=== PATIENT | male | born 1945 | race African-American/Black ===

== ENCOUNTER → 2019-05-17 05:00 | Outpatient (REF) | payer SELFPAY ==
[2019-05-17 08:16] LABS: Anion Gap 8 (5-15); BUN 24 mg/dL (7-18); BUN/Creat Ratio 15.1 RATIO (10-20); Chloride 104 mmol/L (98-107); Creatinine, Serum 1.59 mg/dL (0.70-1.30); EST Glomerular Filtration Rate 45 mL/min (>60); Est Glom Filt Rate - Afr Amer 55 mL/min (>60); Glucose 154 mg/dL (74-106); Potassium 3.8 mmol/L (3.5-5.1); Sodium Level 138 mmol/L (136-145)
[2019-05-17 08:41] LABS: Hemoglobin A1c 11.2 % (4.2-6.3)
== END ==
LOC: OLS.BROOKB 05:00
PROVIDERS: Visit Provider Family Medicine
DX: E11.9 Type 2 diabetes mellitus without complications (principal)
CPT/HCPCS: 36415; 80048; 83036

== ENCOUNTER 2019-06-19 13:16 | Emergency (ER) | payer SELFPAY ==
[2019-06-19 13:17] VITALS: BP 136/70; PULSE 105; RESP 16; TEMP 36.6; O2SAT 96
--- NOTE | 2019-06-19 13:31 | RAD_ITS ---
STUDY: X-RAY - LEFT SHOULDER REASON FOR EXAM: Male, 74 years old. Pain status post fall. TECHNIQUE: 3 view(s) of the shoulder. COMPARISON: None. FINDINGS: There is moderate degenerative arthrosis of the glenohumeral articulation. There is hypertrophic osteoarthrosis of the acromioclavicular joint with inferior osseous spur formation. Normal acromion. There is demineralization of the humerus and visualized osseous structures. The soft tissue structures are unremarkable. Normal visualized pulmonary apex. RAD/Shoulder min 2 Views IMPRESSION: Degenerative changes as above with no evidence of acute fracture or dislocation. Electronically Signed: Shiraz Cazares DO at 13:59 EST , Service support ,
--- NOTE | 2019-06-19 14:08 | ED.VISSUMM ---
- ER Visit Summary Date of Service: 06/19/19 Chief Complaint: Left shoulder pain History of Present Illness: The patient is a 74 M history of dementia currently staying at a local nursing facility. Patient is a very poor informant. Reportedly from the custodial he fell today and now complaining of left shoulder pain. He does not remember falling. He said his left arm still hurting in the day. He is left-hand dominant. He denies any history of prior injury of prior shoulder surgery. Primarily hurts with movement. Patient denies any other injuries. He denies any fever or chills. Physical Examination: Older male no acute distress lying in bed comfortably watching football. HEENT exam unremarkable atraumatic. Neck nontender. Lungs are clear to auscultation. Heart regular rhythm no murmur. Chest wall nontender. Abdomen soft nontender. Pelvic girdle intact. Right upper both lower extremities are nontender with no deformity and normal range of motion. Normal motor strength. His left shoulder is not tender to palpation. There is no gross bony deformity. No swelling. No bleeding. From the left elbow forearm wrist and hand are nontender neurovascular intact with a palpable radial pulse. 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 Normal sensation. Full range of motion to his left elbow and left wrist and hand. He states he has pain when he tries to lift his left arm and has limited range of motion at the shoulder. Test Results: Left shoulder x-ray shows no acute abnormality. No fracture. No dislocation. Read both by myself and radiologist. 3 views. Emergency Department Course and Treatment: Exam no change. Mild passively range his arm he has discomfort and he will not hold up due to pain. His sister is now present in the room and I discussed with her the possibility this being a rotator cuff tear. It could also just be from bruising. I also spoke to the nurse Eileen at his extended care facility. He will be discharged home with outpatient follow-up. Treatment Plan: He may have simple bruising of his arm from the fall but we cannot rule out a rotator cuff injury. If this does not improve and he can't start using his left arm normally. Will need further evaluation. Disposition: Discharge Impression: Left shoulder pain of uncertain etiology This note was generated with [employer] dictation software. It may contain incorrect words, spelling, and punctuation that were not noted in review of the chart prior to signing
--- NOTE | 2019-06-19 15:08 | ED.DEP ---
ED Disposition - Plan for ED Patient: Disposition: Home or Assisted Living Instructions: Shoulder Sprain Referrals: Riddhi Cantrell MD [Primary Care Provider] - 1 Week if not improving Additional Instructions: Ice to the shoulder and Tylenol for pain. If this does not start improving and he cannot use his left shoulder as he could before this will need further evaluation to rule out a rotator cuff or other injury. The x-rays taken today of his shoulder are unremarkable. There is no fracture or dislocation.
== END 2019-06-19 15:56 | disposition home or self-care (01) ==
PROVIDERS: Emergency Provider Emergency Medicine; Family Provider Family Medicine; PCP Family Medicine
DX: M25.512 Pain in left shoulder (principal); W19.XXXA Unspecified fall, initial encounter; Y93.9 Activity, unspecified; Y92.129 Unspecified place in nursing home as the place of occurrence of the external cause; Y99.9 Unspecified external cause status; F03.90 Unspecified dementia, unspecified severity, without behavioral disturbance, psychotic disturbance, mood disturbance, and anxiety; E11.9 Type 2 diabetes mellitus without complications; I10 Essential (primary) hypertension
CPT/HCPCS: 73030; 99284

== ENCOUNTER → 2020-01-25 10:00 | Outpatient (REF) | payer SELFPAY ==
[2020-01-25 12:56] LABS: ALB/GLOB Ratio 0.8 RATIO (0.9-2.4); AST(SGOT) 17 U/L (15-37); Alanine Aminotransfer ALT/SGPT 22 U/L (16-61); Albumin, Serum 3.6 g/dL (3.2-5.0); Alkaline Phosphatase 78 U/L (45-117); Anion Gap 7 (5-15); BUN 40 mg/dL (7-18); BUN/Creat Ratio 20.5 RATIO (10-20); Calcium,Total 8.8 mg/dL (8.5-10.1); Chloride 103 mmol/L (98-107); Cholesterol 143 mg/dL (200); Creatinine, Serum 1.95 mg/dL (0.70-1.30); EST Glomerular Filtration Rate 36 mL/min (>60); Est Glom Filt Rate - Afr Amer 43 mL/min (>60); Globulin 4.3 g/dL (2.2-4.2); Glucose 97 mg/dL (74-106); Hematocrit 38.2 % (40-54); High Density Lipoprotein 37 mg/dL; Mean Corp Hgb Conc 31.4 g/dL (32-36); Mean Corpuscular Hgb 29.7 pg (27.0-32.0); Mean Corpuscular Volume 94.6 fL (80-94); Mean Platelet Vol. 9.5 fl (6.2-12.0); Platelet Count 297 K/mm3 (150-450); Potassium 4.3 mmol/L (3.5-5.1); Protein, Total 7.9 g/dL (6.4-8.2); RBC Distribution Width CV 12.7 % (11.6-14.6); Red Blood Count 4.04 M/mm3 (4.6-6.2); Sodium Level 140 mmol/L (136-145); Triglycerides 99 mg/dL; Very Low Density Lipoprotein 20 mg/dL (5-40); White Blood Count 7.3 K/mm3 (4.4-11.0)
[2020-01-25 14:40] LABS: Hemoglobin A1c 6.5 % (3.8-5.6)
== END ==
LOC: OLS.BROOKB 10:00
PROVIDERS: PCP Family Medicine; Visit Provider Family Medicine
DX: E11.9 Type 2 diabetes mellitus without complications (principal); I10 Essential (primary) hypertension
CPT/HCPCS: 80053; 80061; 83036; 85027

== ENCOUNTER → 2020-07-05 05:00 | Outpatient (REF) | payer SELFPAY ==
[2020-07-05 08:22] LABS: Hematocrit 34.4 % (40-54); Hemoglobin 10.8 g/dL (13.0-16.5); Mean Corp Hgb Conc 31.4 g/dL (32-36); Mean Corpuscular Hgb 28.9 pg (27.0-32.0); Mean Platelet Vol. 9.4 fl (6.2-12.0); Platelet Count 233 K/mm3 (150-450); RBC Distribution Width CV 12.6 % (11.6-14.6); RBC Distribution Width SD 42.9 fl (35.1-43.9); Red Blood Count 3.74 M/mm3 (4.6-6.2); White Blood Count 7.9 K/mm3 (4.4-11.0)
[2020-07-05 08:44] LABS: Anion Gap 6 (5-15); BUN 32 mg/dL (7-18); BUN/Creat Ratio 17.5 RATIO (10-20); Calcium,Total 8.3 mg/dL (8.5-10.1); Chloride 108 mmol/L (98-107); Creatinine, Serum 1.83 mg/dL (0.70-1.30); EST Glomerular Filtration Rate 38 mL/min (>60); Est Glom Filt Rate - Afr Amer 47 mL/min (>60); Glucose 110 mg/dL (74-106); Potassium 3.8 mmol/L (3.5-5.1); Sodium Level 141 mmol/L (136-145)
[2020-07-05 08:50] LABS: Hemoglobin A1c 6.7 % (3.8-5.6)
[2020-07-05 13:13] LABS: Color, Urine Yellow (Yellow); Glucose, Dipstick Normal (Normal); Ketone-Dipstick Negative (Negative); Leukocyte Esterase-Dipstick Negative /ul (Negative); Nitrite-Dipstick Negative (Negative); Occult Blood-Urine Negative /ul (Negative); Protein-Dipstick Negative (Negative); Urine Bilirubin Dipstick Negative (Negative); Urine Clarity Clear (Clear); Urine Urobilinogen Normal (Normal)
== END ==
LOC: OLS.BROOKB 05:00
PROVIDERS: PCP Family Medicine; Visit Provider Family Medicine
DX: F03.90 Unspecified dementia, unspecified severity, without behavioral disturbance, psychotic disturbance, mood disturbance, and anxiety (principal); E11.9 Type 2 diabetes mellitus without complications; I10 Essential (primary) hypertension; F91.8 Other conduct disorders; Z79.899 Other long term (current) drug therapy
CPT/HCPCS: 36415; 80048; 81002; 83036; 85027; 87086

== ENCOUNTER 2020-08-28 12:47 | Emergency (ER) | payer SELFPAY ==
[2020-08-28 12:50] VITALS: BP 135/67; PULSE 103; RESP 16; TEMP 37.1; O2SAT 95; BMI 31.1
--- NOTE | 2020-08-28 12:58 | EKG12_ITS ---
Test Reason : NECK PAIN Blood Pressure : / mmHG Vent. Rate : 103 BPM Atrial Rate : 103 BPM P-R Int : 188 ms QRS Dur : 086 ms QT Int : 316 ms P-R-T Axes : 033 -20 046 degrees QTc Int : 413 ms Sinus tachycardia Minimal voltage criteria for LVH, may be normal variant Borderline ECG Confirmed by POLLY MASON, BRITTANY ([id number]), photo editor ZOYA EASTMAN ([id number]) on 08/31/2020 9:27:57 AM Referred By: JERRY Confirmed By:BRITTANY MATIAS MD
--- NOTE | 2020-08-28 12:58 | RAD_ITS ---
STUDY: X-RAY CHEST REASON FOR EXAM: Male, 75 years old. RIGHT SHOULDER PAIN, RADIATES INTO RIGHT ARM TECHNIQUE: Single AP portable view of the chest. COMPARISON: None. FINDINGS: EKG electrodes are seen. There is elevation of the right hemidiaphragm. There is no demonstrated pleural abnormality. Normal size heart. Normal mediastinum and vibha. Normal visualized pulmonary arteries. There is atherosclerotic tortuosity of the aortic arch and descending thoracic aorta. There are diffuse degenerative changes of the visualized thoracic spine. There is degenerative osteoarthritis of the bilateral shoulders. There is no demonstrated abnormality of the visualized soft tissue structures of the upper abdomen. RAD/Chest 1 View (Portable) IMPRESSION: Elevation of the right hemidiaphragm. The lungs are clear. Electronically Signed: Justin Mills MD at 13:33 EST , Service support ,
--- NOTE | 2020-08-28 13:03 | ED.DCSUM_ITS ---
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 Nursing facility states that he was drowsy yesterday which is persisted today. Patient is complaining of right-sided neck and shoulder pain that began yesterday evening. Patient cannot provide an accurate history of present illness given his dementia. Has no complaints at this time. Past Medical History - Allergies and Home Meds Allergies/Adverse Reactions: Allergies shellfish derived Allergy (Verified 08/28/20 12:48) Unknown Primary Care Physician: Riddhi Cantrell MD [Primary Care Provider] - Prior records reviewed: Yes Past Medical History: - - Dementia Surgical History: noncontributory Lives: Assisted Smoking Status: Former smoker Alcohol: None Drugs: None Review of Systems General: Denies: Chills, Fever, Sweats Eyes: Denies: Visual changes - bilaterally, Diplopia ENT: Denies: Rhinorrhea, Sore throat Cardiovascular: Denies: Chest pain, Palpitations Respiratory: Denies: Dyspnea, Cough, Dyspnea on exertion Gastrointestinal: Denies: Abdominal pain, Nausea, Vomiting, Diarrhea, Melena, Hematochezia Genitourinary: Denies: Dysuria, Hematuria, Frequency Musculoskeletal: Reports: Neck pain. Denies: Back pain, Extremity Pain Skin: Denies: Rash, Wounds Neurological: Denies: Headache, Weakness, Numbness Physical Exam Vital Signs/Narrative: Vital Signs Temp Pulse Resp BP Pulse Ox 08/28/20 12:50 98.7 F 103 H 16 135/67 H 95 Inital Vital Signs reviewed: Yes General: Well nourished, Well developed, No Acute Distress Head: Normocephalic, Atraumatic Eyes: Perrl, EOMI ENT: Moist mucous membranes, No rhinorrhea Neck: Supple, - - TTP over the right middle and postior scalenes. Cardiovascular: Regular rate, Regular rhythm, No murmurs Respiratory: No distress, CTA bilaterally, Chest nontender Abdomen: Soft, Nontender, Nondistended, Normal bowel sounds Back: Nontender, Normal Inspection Extremities: Nontender, No edema Skin: Normal color, No rash Neurological: Alert, Oriented x3, Cranial nerves II-XII grossly intact, Normal Strength, Normal Sensation Psychological: Normal affect, Normal Mood Diagnostic/Tx/Re-eval Chest X-Ray - ED: 1 View, Read by ED Physician, Read by Radiologist, Normal Clinical Impression(s) from Imaging Studies Chest X-Ray 08/28/20 12:58 IMPRESSION: Elevation of the right hemidiaphragm. The lungs are clear. Electronically Signed: Justin Mills MD at 13:33 EST , Service support , Laboratory Data 08/28/20 08/28/20 08/28/20 13:10 13:10 13:40 WBC 11.1 H RBC 3.86 L Hgb 11.5 L Hct 35.2 L MCV 91.2 MCH 29.8 MCHC 32.7 RDW Std Deviation 42.0 RDW Coeff of Sanchez 12.6 Plt Count 286 MPV 9.1 Immature Gran % (Auto) 0.400 Neut % (Auto) 71.8 H Lymph % (Auto) 15.0 L [place] % (Auto) 10.8 H Eos % (Auto) 1.6 Baso % (Auto) 0.4 Absolute Neuts (auto) 8.0 H Absolute Lymphs (auto) 1.67 Nucleated RBC % 0 Sodium Cancelled 136 Potassium Cancelled 4.2 Chloride Cancelled 102 Carbon Dioxide Cancelled 27.0 Anion Gap Cancelled 7 BUN Cancelled 25 H Creatinine Cancelled 1.61 H Estim Creat Clear Calc Cancelled 44.11 Est GFR (MDRD) Af Amer Cancelled 54 L Est GFR (MDRD) Non-Af Cancelled 45 L BUN/Creatinine Ratio Cancelled 15.5 Glucose Cancelled 187 H Calcium Cancelled 8.6 Total Bilirubin Cancelled 0.50 AST Cancelled 16 ALT Cancelled 16 Alkaline Phosphatase Cancelled 82 Troponin I Cancelled < 0.015 Total Protein Cancelled 7.6 Albumin Cancelled 2.9 L Globulin Cancelled 4.7 H Albumin/Globulin Ratio Cancelled 0.6 L Urine Color Urine Clarity Urine pH Ur Specific Gray Urine Protein Urine Glucose (UA) Urine Ketones Urine Occult Blood Urine Nitrite Urine Bilirubin Urine Urobilinogen Ur Leukocyte Esterase Urine RBC Urine WBC Ur Squamous Epith Cells Urine Bacteria Urine Mucus 08/28/20 13:53 WBC RBC Hgb Hct MCV MCH MCHC RDW Std Deviation RDW Coeff of Sanchez Plt Count MPV Immature Gran % (Auto) Neut % (Auto) Lymph % (Auto) [place] % (Auto) Eos % (Auto) Baso % (Auto) Absolute Neuts (auto) Absolute Lymphs (auto) Nucleated RBC % Sodium Potassium Chloride Carbon Dioxide Anion Gap BUN Creatinine Estim Creat Clear Calc Est GFR (MDRD) Af Amer Est GFR (MDRD) Non-Af BUN/Creatinine Ratio Glucose Calcium Total Bilirubin AST ALT Alkaline Phosphatase Troponin I Total Protein Albumin Globulin Albumin/Globulin Ratio Urine Color Yellow Urine Clarity Sl. Cloudy Urine pH 6.0 Ur Specific Gray 1.015 Urine Protein 30 H Urine Glucose (UA) Normal Urine Ketones Negative Urine Occult Blood Negative Urine Nitrite Negative Urine Bilirubin Negative Urine Urobilinogen Normal Ur Leukocyte Esterase 25 H Urine RBC 0 SEEN Urine WBC 0-5 SEEN Ur Squamous Epith Cells 0 SEEN Urine Bacteria 0 SEEN Urine Mucus 0 SEEN - Rhythm Strip Rhythm Strip: Sinus Tach Rate: 103 Ectopy: None - EKG Initial EKG Interpretation: Sinus Tachycardia - Sinus tachycardia at 103 bpm. IA interval 188 ms. QTC of 413 ms. No evidence of ST elevation or depression at this time. - Medical Decision Making Patient appears well and nontoxic. EKG nonischemic. Troponin negative. Kidney function at baseline. Patient's pain is secondary to muscular tension. Was given Flexeril which completely resolves his pain. Patient is not drowsy and is completely alert in the emergency department. Vital signs initially somewhat tachycardic but improved following a small fluid bolus. Patient will be returned to the group home. Stable at time of discharge. Impression: 1. Neck pain 2. Drowsiness - resolved 3. CKD ED Disposition - Plan for ED Patient: Disposition: Senior Living Facility Instructions: ED Muscle Spasm Referrals: Riddhi Cantrell MD [Primary Care Provider] - 2 Days
[2020-08-28] MEDS: cycloBENZAPRine HCl 10 MG Tablet 5 MG PO (13:09)
--- NOTE | 2020-08-28 13:15 | NURSING ---
NO OLD EKGS
[2020-08-28 13:17] LABS: Absolute Lymphocyte Count 1.67 X10^3/uL (0.83-4.51); Basophil# 0.04 X10^3/uL; Basophil% 0.4 % (0-1); Eosinophil# 0.18 X10^3/uL; Eosinophils% 1.6 % (0-5); Hematocrit 35.2 % (40-54); Hemoglobin 11.5 g/dL (13.0-16.5); Lymphocyte # 1.67 X10^3/ul (4.0); Mean Corp Hgb Conc 32.7 g/dL (32-36); Mean Corpuscular Hgb 29.8 pg (27.0-32.0); Mean Corpuscular Volume 91.2 fL (80-94); Mean Platelet Vol. 9.1 fl (6.2-12.0); Monocyte% 10.8 % (0-10); NRBC Flagged by Analyzer 0 % (0-5); Neutrophil # 7.98 X10^3/uL (2.7-7.7); Neutrophil % 71.8 % (47-70); Platelet Count 286 K/mm3 (150-450); RBC Distribution Width CV 12.6 % (11.6-14.6); Red Blood Count 3.86 M/mm3 (4.6-6.2); White Blood Count 11.1 K/mm3 (4.4-11.0)
[2020-08-28 13:56] LABS: Bacteria 0 SEEN /hpf (None Seen); Mucous, Urine 0 SEEN /hpf (<or=2+); Red Blood Cells-Urine 0 SEEN /hpf (0-5); Squamous Epithelial Cells - UA 0 SEEN /hpf (0-5)
[2020-08-28 13:57] LABS: Color, Urine Yellow (Yellow); Glucose, Dipstick Normal (Normal); Ketone-Dipstick Negative (Negative); Leukocyte Esterase-Dipstick 25 /ul (Negative); Nitrite-Dipstick Negative (Negative); Occult Blood-Urine Negative /ul (Negative); Protein-Dipstick 30 mg/dl (Negative); Specific Gravity, Urine 1.015 (1.002-1.030); Urine Bilirubin Dipstick Negative (Negative); Urine Clarity Sl. Cloudy (Clear); Urine Urobilinogen Normal (Normal)
[2020-08-28 14:03] LABS: White Blood Cells 0-5 SEEN /hpf (0-5)
[2020-08-28 14:29] LABS: ALB/GLOB Ratio 0.6 RATIO (0.9-2.4); AST(SGOT) 16 U/L (15-37); Alanine Aminotransfer ALT/SGPT 16 U/L (16-61); Albumin, Serum 2.9 g/dL (3.2-5.0); Alkaline Phosphatase 82 U/L (45-117); Anion Gap 7 (5-15); BUN 25 mg/dL (7-18); BUN/Creat Ratio 15.5 RATIO (10-20); Calcium,Total 8.6 mg/dL (8.5-10.1); Chloride 102 mmol/L (98-107); Creatinine, Serum 1.61 mg/dL (0.70-1.30); EST Glomerular Filtration Rate 45 mL/min (>60); Est Glom Filt Rate - Afr Amer 54 mL/min (>60); Estimated Creatinine Clearance 44.11 ml/min; Globulin 4.7 g/dL (2.2-4.2); Glucose 187 mg/dL (74-106); Potassium 4.2 mmol/L (3.5-5.1); Protein, Total 7.6 g/dL (6.4-8.2); Sodium Level 136 mmol/L (136-145)
[2020-08-28 15:15] VITALS: BP 123/73; PULSE 96; RESP 17; O2SAT 96
--- NOTE | 2020-08-28 15:32 | NURSING ---
CALLED [facility], ETA IS 75 MIN
== END 2020-08-28 17:51 ==
PROVIDERS: Emergency Provider Emergency Medicine; PCP Family Medicine
DX: M54.2 Cervicalgia (principal); R40.0 Somnolence; M25.511 Pain in right shoulder; N18.9 Chronic kidney disease, unspecified; R00.0 Tachycardia, unspecified; F03.90 Unspecified dementia, unspecified severity, without behavioral disturbance, psychotic disturbance, mood disturbance, and anxiety; Z79.899 Other long term (current) drug therapy; Z87.891 Personal history of nicotine dependence
CPT/HCPCS: 36415; 71045; 80053; 81001; 84484; 85025; 93005; 99285; A4216

== ENCOUNTER 2020-08-29 17:48 | Emergency (ER) | payer SELFPAY ==
[2020-08-28 12:50] VITALS: BMI 31.1
[2020-08-29 17:48] VITALS: BP 119/65; PULSE 112; RESP 18; TEMP 36.4; O2SAT 96; BMI 30.4
--- NOTE | 2020-08-29 17:55 | RAD_ITS ---
STUDY: X-RAY - PELVIS REASON FOR EXAM: Male, 75 years old. PAIN IN BOTH HIPS. POSSIBLE FALL AT [facility]. FOUND LYING ON HIS SIDE TECHNIQUE: One view of the pelvis was obtained. COMPARISON: None. FINDINGS: There is a non-specific bowel gas pattern. Normal visualized soft tissue structures. Normal bilateral iliac wings, sacroiliac joints and visualized sacrum. Normal visualized bilateral superior and inferior pubic rami. Normal pubic symphysis. Normal ischial tuberosities. Normal visualized right femoral head. Normal right acetabulum. Normal right hip joint. Normal visualized left femoral head. Normal left acetabulum. Normal left hip joint. RAD/Pelvis 1 or 2 Views IMPRESSION: Normal x-ray examination of the pelvis. Electronically Signed: Jared Hill MD at 18:26 EST , Service support ,
--- NOTE | 2020-08-29 17:57 | ED.VIS.INJ ---
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 He reports hip pain which localized to the buttocks area and lateral left elbow pain. He is not a good informant since he has significant dementia. He denies head pain. He denies change in his vision. Denies trouble with his breathing. Denies chest pain. He denies upper back pain. He denies numbness or tingling in his upper or lower extremities. He was seen yesterday for fall. Prior similar symptoms: Yes Recent Illness/Hospitalization: Yes - Past Medical History (1) History of type 2 diabetes mellitus Status: Acute (2) History of hypertension Status: Acute (3) History of hypercholesterolemia Status: Acute (4) History of gastroesophageal reflux (GERD) Status: Acute (5) Dementia Status: Acute (6) Iron deficiency anemia Status: Acute Past Medical History - Allergies and Home Meds Allergies/Adverse Reactions: Allergies shellfish derived Allergy (Verified 08/29/20 17:54) Unknown Primary Care Physician: Riddhi Cantrell MD [Primary Care Provider] - Surgical History: noncontributory Lives: Residential Smoking Status: Former smoker Alcohol: None Drugs: None Review of Systems ROS: Unable to Obtain Musculoskeletal: Reports: Extremity Pain Physical Exam Vital Signs/Narrative: Vital Signs Temp Pulse Resp BP Pulse Ox 08/29/20 17:48 97.6 F L 112 H 18 119/65 96 Inital Vital Signs reviewed: Yes General: Well nourished, Well developed Head: Normocephalic, Atraumatic Eyes: Perrl, EOMI, - - Arcus senilis. Negative for: Pale conjunctiva, Scleral icterus ENT: TM's clear, No hemotympanum or drainage, No trauma. Negative for: Hemotympanum, Otorrhea, Nasal trauma, Nasal septal hematoma Neck: Nontender, Full ROM. Negative for: Spinal Tenderness Cardiovascular: Regular rhythm, No murmurs, Normal S1, Normal S2, Tachycardia Respiratory: No distress, CTA bilaterally, Chest nontender Abdomen: Soft, Nontender, Nondistended, Normal bowel sounds Rectal: Deferred Back: Nontender. Negative for: CVA Tenderness - Right, CVA Tenderness - Left, Spinal Tenderness, Paraspinal Tenderness Extremeties: Pain to palpation over the right and left ischial tuberosity. He also has pain ovation over the lateral epicondyle left elbow. Skin: Normal color, No rash, No Trauma. Negative for: Cyanosis, Diaphoresis, Jaundice Neurological: Alert, Cranial nerves II-XII grossly intact, Normal Strength, Normal Sensation. Negative for: Oriented x3 Psychological: Normal affect Diagnostic/Tx/Re-eval Chest X-Ray - ED: Read by ED Physician, - - 2 view x-ray of the pelvis was obtained and reveals minimal chronic changes with no evidence of fracture. Three-view x-ray of the elbow was obtained and interpreted as negative. There is no evidence of fracture, anterior posterior fat pad. There is mild degenerative changes noted. - Medical Decision Making Will obtain x-ray of the pelvis to rule out pelvic fracture and L x-ray of the elbow to rule out fracture of the elbow versus contusion. ED Disposition - Plan for ED Patient: Disposition: Home or Assisted Living Diagnosis: Fall with injury, Contusion of left elbow, initial encounter, Pelvic contusion Instructions: ED Contusion, Elbow, ED Coccyx or Sacrum Contusion Referrals: Riddhi Cantrell MD [Primary Care Provider] - As Needed
--- NOTE | 2020-08-29 18:10 | RAD_ITS ---
STUDY: X-RAY - LEFT ELBOW REASON FOR EXAM: Male, 75 years old. possible fall at [facility]. found lying on side. PAIN IN BOTH HIPS TECHNIQUE: 3 view(s) of the elbow. COMPARISON: None. FINDINGS: Normal visualized humerus, radius and ulna. Normal radiocapitellar and ulnotrochlear articulations. Tiny periarticular calcification adjacent to the medial humeral epicondyle likely representing calcific tendinitis. Small olecranon spur.. RAD/Elbow min 3 Views IMPRESSION: Mild degenerative change. No acute fracture or dislocation Electronically Signed: Jared Hill MD at 18:27 EST , Service support ,
--- NOTE | 2020-08-29 19:03 | NURSING ---
report called to ginny jennings nurse notified
[2020-08-29 19:14] VITALS: BP 154/74; PULSE 106; RESP 18; O2SAT 96
[2020-08-29 20:09] VITALS: BP 178/88; PULSE 105; RESP 18; O2SAT 95
[2020-08-29 20:18] VITALS: BP 156/92; PULSE 105; RESP 18; O2SAT 96
[2020-08-29 20:46] VITALS: BP 162/87; PULSE 106; RESP 18; O2SAT 95
== END 2020-08-29 20:46 | disposition skilled nursing facility (03) ==
PROVIDERS: Emergency Provider Emergency Medicine; PCP Family Medicine
DX: S50.02XA Contusion of left elbow, initial encounter (principal); S30.0XXA Contusion of lower back and pelvis, initial encounter; W19.XXXA Unspecified fall, initial encounter; Y93.9 Activity, unspecified; Y92.9 Unspecified place or not applicable; Y99.9 Unspecified external cause status; E11.9 Type 2 diabetes mellitus without complications; I10 Essential (primary) hypertension; E78.00 Pure hypercholesterolemia, unspecified; D50.9 Iron deficiency anemia, unspecified; K21.9 Gastro-esophageal reflux disease without esophagitis; F03.90 Unspecified dementia, unspecified severity, without behavioral disturbance, psychotic disturbance, mood disturbance, and anxiety; Z79.84 Long term (current) use of oral hypoglycemic drugs; Z79.899 Other long term (current) drug therapy; Z87.891 Personal history of nicotine dependence
CPT/HCPCS: 72170; 73080; 99284

== ENCOUNTER 2020-08-30 15:02 | Observation (INO) | payer SELFPAY ==
[2020-08-29 17:48] VITALS: BMI 30.4
[2020-08-30] VITALS (7 sets, daily range): BP systolic 104–139; BP diastolic 66–82; PULSE 90–94; RESP 14–18; TEMP 36.3–36.7; O2SAT 87–100; BMI 35.5; BMI 34.0
--- NOTE | 2020-08-30 15:20 | CT_ITS ---
STUDY: CT CERVICAL SPINE WITHOUT CONTRAST REASON FOR EXAM: Male, 75 years old. Decreased LOC, recent fall, dementia. Hx hypertension, diabetes. RADIATION DOSAGE (If Supplied By Facility): CTDIvol = ( 25.44 ) mGy, DLP = ( 519.40 ) mGycm TECHNIQUE: High resolution transaxial imaging was performed without contrast material. Sagittal and coronal images were reconstructed. Individualized dose optimization techniques were used for this CT. COMPARISON: None FINDINGS: Normal craniovertebral junction. Normal anterior atlantoaxial articulation. Normal odontoid process. Normal cervical lordosis. Normal vertebral bodies and posterior osseous elements. C2-3: Normal endplates. Normal disc height and small central disc protrusion.. Normal central canal and moderate right neuroforaminal stenosis secondary to bony hypertrophy. C3-4: Normal endplates. Normal disc height and small central disc/osteophyte protrusion. Mild narrowing of the central canal and impingement upon the ventral surface of the cord. Severe bilateral neuroforaminal stenosis secondary to bony hypertrophy C4-5: Narrowed disc space with endplate spurring and prominent right paracentral calcific disc protrusion narrowing the spinal canal and compressing the cord greater on the right. Severe bilateral neuroforaminal stenosis secondary to bony hypertrophy. C5-6: Narrowed disc space and endplate spurring. Mild narrowing the central canal. Severe bilateral neuroforaminal stenosis secondary to bony hypertrophy.. C6-7: Narrowed disc space and endplate spurring with small central disc protrusion. Mild narrowing of the central canal. Severe bilateral neuroforaminal stenosis secondary to bony hypertrophy. C7-T1: Normal endplates. Normal disc height and morphology. Normal central canal and intervertebral neuroforamina. Normal visualized soft tissue structures. CT/Spine Cervical without Contras IMPRESSION: No evidence for acute fracture or other significant bony pathology.. Spondylosis and multilevel spinal stenosis secondary to disc disease and bony hypertrophy most severe at C4-5, C5-6 and C6-7 Electronically Signed: Jared Hill MD at 16:19 EST , Service support ,
--- NOTE | 2020-08-30 15:20 | CT_ITS ---
STUDY: CT BRAIN WITHOUT CONTRAST REASON FOR EXAM: Male, 75 years old. Decreased LOC, recent fall, dementia. Hx hypertension, diabetes. RADIATION DOSAGE (If Supplied By Facility): CTDIvol = ( 44.99 ) mGy, DLP = ( 796.11 ) mGycm TECHNIQUE: Transaxial CT imaging of the brain was performed without administration of intravenous contrast material. Individualized dose optimization techniques were used for this CT. COMPARISON: No relevant priors. FINDINGS: Normal soft tissue structures. Normal calvarium. Calcification of cavernous carotids. Atrophy and moderate periventricular white matter ischemic changes.. Normal basal ganglia and thalami. Normal brainstem. Normal cerebellum. There is no intracranial hemorrhage. There are no findings of an acute ischemic infarction. Soft tissue density within the external auditory canal bilaterally likely representing cerumen Normal visualized paranasal sinuses. CT/Brain/Head without Contrast IMPRESSION: Atrophy and moderate periventricular white matter ischemic changes. No evidence for acute intracranial bleed. Electronically Signed: Jared Hill MD at 16:15 EST , Service support ,
[2020-08-30 15:40] LABS: Absolute Lymphocyte Count 2.12 X10^3/uL (0.83-4.51); Absolute Neutrophil Count 5.8 X10^3/uL (2.0-7.7); Basophil# 0.06 X10^3/uL; Basophil% 0.6 % (0-1); Eosinophil# 0.29 X10^3/uL; Eosinophils% 3.1 % (0-5); Hematocrit 35.3 % (40-54); Hemoglobin 11.5 g/dL (13.0-16.5); Lymphocyte # 2.12 X10^3/ul (4.0); Lymphocyte % 22.7 % (19-41); Mean Corp Hgb Conc 32.6 g/dL (32-36); Mean Corpuscular Hgb 29.5 pg (27.0-32.0); Mean Corpuscular Volume 90.5 fL (80-94); Mean Platelet Vol. 8.9 fl (6.2-12.0); Monocyte# 1.08 X10^3/uL; Monocyte% 11.6 % (0-10); NRBC Flagged by Analyzer 0 % (0-5); Neutrophil # 5.76 X10^3/uL (2.7-7.7); Neutrophil % 61.8 % (47-70); Platelet Count 314 K/mm3 (150-450); RBC Distribution Width CV 12.3 % (11.6-14.6); White Blood Count 9.3 K/mm3 (4.4-11.0)
[2020-08-30 16:13] LABS: ALB/GLOB Ratio 0.5 RATIO (0.9-2.4); AST(SGOT) 21 U/L (15-37); Alanine Aminotransfer ALT/SGPT 17 U/L (16-61); Albumin, Serum 2.8 g/dL (3.2-5.0); Alkaline Phosphatase 88 U/L (45-117); Anion Gap 6 (5-15); BUN 30 mg/dL (7-18); BUN/Creat Ratio 16.2 RATIO (10-20); Calcium,Total 9.3 mg/dL (8.5-10.1); Chloride 101 mmol/L (98-107); Creatinine, Serum 1.85 mg/dL (0.70-1.30); EST Glomerular Filtration Rate 38 mL/min (>60); Est Glom Filt Rate - Afr Amer 46 mL/min (>60); Estimated Creatinine Clearance 32.86 ml/min; Globulin 5.2 g/dL (2.2-4.2); Glucose 108 mg/dL (74-106); Potassium 4.6 mmol/L (3.5-5.1); Sodium Level 135 mmol/L (136-145)
[2020-08-30 16:18] LABS: Bacteria 0 SEEN /hpf (None Seen); Mucous, Urine 0 SEEN /hpf (<or=2+)
[2020-08-30 16:21] LABS: Color, Urine Yellow (Yellow); Glucose, Dipstick Normal (Normal); Ketone-Dipstick Negative (Negative); Leukocyte Esterase-Dipstick 25 /ul (Negative); Nitrite-Dipstick Negative (Negative); Occult Blood-Urine 10 /ul (Negative); Protein-Dipstick 15 mg/dl (Negative); Specific Gravity, Urine 1.015 (1.002-1.030); Urine Bilirubin Dipstick Negative (Negative); Urine Clarity Clear (Clear); Urine Urobilinogen Normal (Normal)
--- NOTE | 2020-08-30 16:21 | ED.DCSUM_ITS ---
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 Patient is unable to contribute useful history. His only complaint is neck pain. He is unsure when this started. He denies any other complaint on review of systems. Chart review shows that the patient that this is 1/3-day in a row the patient has been here. The initial visit was for confusion. Reviewing his medications show that he was started on gabapentin and Flexeril on August 29. Patient has not had a dose of Flexeril today. He has had gabapentin. Physical Examination: Vitals: Stable. Afebrile. General: Well-nourished and well-developed. Head: Normocephalic atraumatic. Neck: Supple, no lymphadenopathy. No JVD. Mild tenderness palpation over the mid cervical vertebrae and the paraspinous musculature on the right Cardiovascular: Regular rate and rhythm. No murmurs. Respiratory: No respiratory distress. Clear to auscultation bilaterally. Abdominal: Soft, nontender, nondistended, normal bowel sounds. No guarding, rebound, or peritoneal signs. Back: Nontender. Extremities: Nontender, no edema. Skin: Normal color, no rash. Neurologic: Alert and oriented ?1. Cranial nerves II through XII are intact. Normal strength and sensation. Slow to respond. Psych: Normal affect. Test Results: CBC shows an H&H 11.5 and 35.3. Chem-7 shows a sodium 135, glucose 108, BUN 30, creatinine 1.5. LFTs show an albumin of 2.8 globulin of 5.2. Covid is negative. Urinalysis shows leukocytes and blood. Clinical Impression(s) from Imaging Studies Brain CT 08/30/20 15:20 IMPRESSION: Atrophy and moderate periventricular white matter ischemic changes. No evidence for acute intracranial bleed. Electronically Signed: Jared Hill MD at 16:15 EST , Service support , Cervical Spine CT 08/30/20 15:20 IMPRESSION: No evidence for acute fracture or other significant bony pathology.. Spondylosis and multilevel spinal stenosis secondary to disc disease and bony hypertrophy most severe at C4-5, C5-6 and C6-7 Electronically Signed: Jared Hill MD at 16:19 EST , Service support , Emergency Department Course and Treatment: Patient is resting comfortably. Treatment Plan: I suspect that the patient's confusion and lethargy is due to the gabapentin. However, given his age he will be discussed with the hospitalist and admitted for further evaluation and treatment. Disposition: Admitted in stable condition. Impression: 1. Confusion. 2. Chronic renal insufficiency. This note was generated with [employer] dictation software. It may contain incorrect words, spelling, and punctuation that were not noted in review of the chart prior to signing ED Disposition - Plan for ED Patient: Referrals: Riddhi Cantrell MD [Primary Care Provider] -
[2020-08-30 16:51] LABS: Amorphous Sediment 1+ URATE; Hyaline Cast 0-5 SEEN /lpf (0-5); Red Blood Cells-Urine 0-5 SEEN /hpf (0-5); Squamous Epithelial Cells - UA 0-5 SEEN /hpf (0-5); White Blood Cells 0-5 SEEN /hpf (0-5)
--- NOTE | 2020-08-30 20:05 | HP.PCM_ITS ---
Problem List (1) Altered mental status Status: Acute (2) Dementia Status: Chronic (3) History of gastroesophageal reflux (GERD) Status: Chronic (4) History of hypercholesterolemia Status: Chronic (5) History of hypertension Status: Chronic (6) History of type 2 diabetes mellitus Status: Chronic (7) Iron deficiency anemia Status: Chronic History of Present Illness Date of Admission: 08/30/20 Chief Complaint: Altered mental status for few days The patient is a 75 year old M with multiple comorbidities as listed above was sent from [facility] for altered mental status for few days. Kristine ent has been coming to ER on 08/28 and 08/29 for neck pain and concern of drowsiness and apparent fall. Patient also complained of neck pain to the ER physician. Patient himself denies fall but questionable as patient has dementia and no family member to confirm it. Patient himself states he has intermittent confusion and disorientation and that is not new for him. Currently he is disoriented to place, person and time. Denies shortness of breath, chest pressure, fever or chills. No recent Covid symptoms including cough, sore throat or exposure. Denies burning with urination or new urinary symptoms. No abdominal pain. CT head and cervical spine CT does not show acute change. 12-lead EKG shows normal sinus rhythm at 89 bpm. [] Past Medical History Past Medical History (Chronic Problems): Chronic Problems History of type 2 diabetes mellitus (Chronic) History of hypertension (Chronic) History of hypercholesterolemia (Chronic) History of gastroesophageal reflux (GERD) (Chronic) Dementia (Chronic) Iron deficiency anemia (Chronic) Allergies shellfish derived Allergy (Verified 08/30/20 15:08) Unknown Home Medications: Ambulatory Orders Medication Instructions Recorded Atorvastatin Calcium [Lipitor] 20 mg PO QHS 08/28/20 Cimetidine 400 mg PO DAILY 08/28/20 Diltiazem HCl [Cartia Xt] 180 mg PO DAILY 08/28/20 Escitalopram Oxalate 10 mg PO DAILY 08/28/20 Ferrous Sulfate 325 mg PO DAILY 08/28/20 Lorazepam 0.5 mg PO BID PRN PRN 08/28/20 Memantine HCl 5 mg PO BID 08/28/20 Metformin HCl 1,000 mg PO BID 08/28/20 Nateglinide 120 mg PO TIDCM 08/28/20 Quetiapine Fumarate [Seroquel] 25 mg PO QHS 08/28/20 Valsartan/Hydrochlorothiazide 1 tab PO DAILY 08/28/20 [Valsartan-Hctz 320-25 mg Tab] Acetaminophen [Tylenol Arthritis] 1,300 mg PO BID 08/30/20 Gabapentin [Neurontin] 300 mg PO TID 08/30/20 cycloBENZAPRine HCl [Flexeril] 10 mg PO TID PRN PRN 08/30/20 Surgical History: noncontributory Smoking Status: Unknown if ever smoked - *Family History Paternal History Items: Unknown - Patient has dementia and does not remember well. Unobtainable Review of Systems Constitutional: Denies: Chills, Fever, Weight Change HEENT: Denies: Head Aches, Sinus Congestion, Sinus Drainage Cardiovascular: Denies: Chest Pain, Palpitations Respiratory: Denies: Cough, Shortness of breath at rest, Sputum production Gastrointestinal: Denies: Abdominal Pain, Nausea, Vomiting Genitourinary: Denies: Dysuria, Frequency Musculoskeletal: Denies: Joint Pain, Joint Tenderness Skin: Denies: Rash, Wounds Neurological: Reports: Balance problems. Denies: Focal weakness, Numbness, Tingling Psychiatric: Denies: Anxiety, Depression, Homicidal Ideations, Suicidal Ideations Hematologic/ Lymphatic: Denies: Easy Bruising, Easy Bleeding Unable to obtain accurate/complete ROS d/t: Detailed ROS unobtainable because of dementia VTE Information - Inpt Only VTE Present on Admission: No VTE Mechan Device Prophylaxis: None VTE Pharm Prophylaxis ordered?: Yes Patient Problems: Active and Suspected Problems Altered mental status (Acute) Objective: Physical exam General: Awake but disoriented to place, person, time and situation. HEENT: Atraumatic, PERRLA, EOMI, Normocephalic Oral: No Gingival or Mucosal Lesions/ Ulcerations Neck: Supple, No JVD, Negative Carotid Bruits Lungs: Air entry diminished in bilateral lung bases. No crepitation/rhonchi Cardiovascular: Regular rate, Regular Rhythm, Normal S1, Normal S2, No murmurs Abdomen: Bowel Sounds Present, Soft, Non Tender, Non-Distended : No renal angle tenderness. No suprapubic tenderness. Extremities: No edema, Capillary Refill Less than 3 Seconds Skin: No rashes, No breakdown Musculoskeletal: No Tenderness to Palpation of Joints or Extremities. ROM right knee and hip joints adequate. Neurological: Cranial nerves II-XII grossly intact, Deep Tendon Reflexes 2+/4. No focal neurological deficit. Muscle strength 5/5 at major joints. Psych/Mental Status: Normal Affect, Appropriate. - Physical Exam Vitals/I&O's: Vital Signs Temp Pulse Resp BP Pulse Ox 98.1 F 91 18 135/82 H 100 08/30/20 17:29 08/30/20 18:00 08/30/20 18:00 08/30/20 18:00 08/30/20 18:00 Oxygen Delivery Method Room Air Weight: 223 lb 8.78 oz Body Mass Index (BMI) 34.0 Microbiology Past 72 Hours 08/30/20 15:24 Mucosa - Nose SARS-CoV-2 Antigen (Rapid) - Final Laboratory Results 08/30/20 15:10: WBC 9.3, RBC 3.90 L, Hgb 11.5 L, Hct 35.3 L, MCV 90.5, MCH 29.5, MCHC 32.6, RDW Std Deviation 41.0, RDW Coeff of Sanchez 12.3, Plt Count 314, MPV 8.9, Immature Gran % (Auto) 0.200, Neut % (Auto) 61.8, Lymph % (Auto) 22.7, [place] % (Auto) 11.6 H, Eos % (Auto) 3.1, Baso % (Auto) 0.6, Absolute Neuts (auto) 5.8, Absolute Lymphs (auto) 2.12, Nucleated RBC % 0 08/30/20 15:10: Sodium 135 L, Potassium 4.6, Chloride 101, Carbon Dioxide 28.0, Anion Gap 6, BUN 30 H, Creatinine 1.85 H, Estim Creat Clear Calc 32.86, Est GFR (MDRD) Af Amer 46 L, Est GFR (MDRD) Non-Af 38 L, BUN/Creatinine Ratio 16.2, Glucose 108 H, Calcium 9.3, Total Bilirubin 0.40, AST 21, ALT 17, Alkaline Phosphatase 88, Total Protein 8.0, Albumin 2.8 L, Globulin 5.2 H, Albumin/Globulin Ratio 0.5 L 08/30/20 15:59: Urine Color Yellow, Urine Clarity Clear, Urine pH 5.0, Ur Specific [place] 1.015, Urine Protein 15 H, Urine Glucose (UA) Normal, Urine Ketones Negative, Urine Occult Blood 10 H, Urine Nitrite Negative, Urine Bilirubin Negative, Urine Urobilinogen Normal, Ur Leukocyte Esterase 25 H, Urine RBC 0-5 SEEN, Urine WBC 0-5 SEEN, Ur Squamous Epith Cells 0-5 SEEN, Amorphous Sediment 1+ URATE, Urine Bacteria 0 SEEN, Hyaline Casts 0-5 SEEN, Urine Mucus 0 SEEN Current Medications Sodium Chloride (0.9% Saline Lock 10 Ml Syringe) 10 - 40 ml IV UD PRN PRN Reason: SALINE FLUSH Assessment/Plan All Active Problems Altered mental status (Acute) The patient is a 75 year old M with multiple comorbidities as listed above was sent from [facility] for altered mental status for few days and recurrent ER visits for last 3 days. 1 altered mental status although unclear recent: As per patient he states he has confusion and disorientation intermittently and its not new thing. Probably it is related to dementia. No fever or chills. Denies dysuria. UA grossly normal. IV fluid normal saline at 100 mill per hour as patient is dehydrated. 2. CKD stage III: Patient has chronically elevated BUN and creatinine. His creatinine was 1.95 in January 2020, 1.June, 1.61 on August 28. Monitor intake and output, electrolytes and kidney function. 3. Diabetes mellitus type 2: Accu-Chek is in his coverage Humalog sliding scale. Blood sugar is random sometimes high sometimes low. Last A1c 6.7 in June 2020. 4. Other comorbidities include hypertension, chronic iron deficiency anemia GERD and dyslipidemia medication reconciliation done. VTE prophylaxis: Lovenox 30 mg subcu daily, adjusted to the creatinine clearance.. [] Clinical Impression(s) from Imaging Studies Brain CT 08/30/20 15:20 IMPRESSION: Atrophy and moderate periventricular white matter ischemic changes. No evidence for acute intracranial bleed. Electronically Signed: Jared Hill MD at 16:15 EST , Service support , Cervical Spine CT 08/30/20 15:20 IMPRESSION: No evidence for acute fracture or other significant bony pathology.. Spondylosis and multilevel spinal stenosis secondary to disc disease and bony hypertrophy most severe at C4-5, C5-6 and C6-7 OBSV E&M: [id number] Initial observation care L3
--- NOTE | 2020-08-30 20:25 | PCS.PANDOC ---
PANDEMIC DOCUMENTATION INITIATED: Date: 08/30/20 Time: 1999
[2020-08-30 21:00] LABS: Magnesium 1.6 mg/dL (1.6-2.6)
--- NOTE | 2020-08-30 21:40 | CPS ---
pt was sleeping when pox on room air was 87%-placed pt on 2 l/m sat increased to 96%
[2020-08-30] MEDS: 0.9% Normal Saline 1,000 ML 100 ML IV (22:03)
[2020-08-30] MEDS: 0.9% Saline Lock 10 ML Syringe IV (22:03)
[2020-08-30] MEDS: Atorvastatin Calcium 20 MG Tablet PO (22:04)
[2020-08-30] MEDS: Memantine Hydrochloride 5 MG Tablet PO (22:04)
[2020-08-30] MEDS: Senna/Docusate Sodium 1 Tablet 2 TABLET PO (22:04)
[2020-08-30] MEDS: Enoxaparin 30 MG/0.3 ML Syringe SC (22:17)
[2020-08-30 22:26] LABS: Bedside Glucose 139 mg/dL (70-110)
[2020-08-31 02:20] VITALS: BP 104/62; PULSE 93; RESP 16; TEMP 36.6; O2SAT 96
[2020-08-31 05:48] LABS: Absolute Lymphocyte Count 1.84 X10^3/uL (0.83-4.51); Absolute Neutrophil Count 4.6 X10^3/uL (2.0-7.7); Basophil# 0.06 X10^3/uL; Basophil% 0.8 % (0-1); Eosinophil# 0.25 X10^3/uL; Eosinophils% 3.3 % (0-5); Hematocrit 32.6 % (40-54); Hemoglobin 10.2 g/dL (13.0-16.5); Lymphocyte # 1.84 X10^3/ul (4.0); Lymphocyte % 24.2 % (19-41); Mean Corp Hgb Conc 31.3 g/dL (32-36); Mean Corpuscular Hgb 28.7 pg (27.0-32.0); Mean Corpuscular Volume 91.8 fL (80-94); Mean Platelet Vol. 8.4 fl (6.2-12.0); Monocyte# 0.86 X10^3/uL; Monocyte% 11.3 % (0-10); NRBC Flagged by Analyzer 0 % (0-5); Neutrophil # 4.59 X10^3/uL (2.7-7.7); Neutrophil % 60.3 % (47-70); Platelet Count 299 K/mm3 (150-450); RBC Distribution Width CV 12.4 % (11.6-14.6); RBC Distribution Width SD 42.5 fl (35.1-43.9); Red Blood Count 3.55 M/mm3 (4.6-6.2); White Blood Count 7.6 K/mm3 (4.4-11.0)
[2020-08-31 06:19] LABS: Anion Gap 7 (5-15); BUN 32 mg/dL (7-18); BUN/Creat Ratio 20.3 RATIO (10-20); Calcium,Total 8.7 mg/dL (8.5-10.1); Chloride 103 mmol/L (98-107); Creatinine, Serum 1.58 mg/dL (0.70-1.30); EST Glomerular Filtration Rate 46 mL/min (>60); Est Glom Filt Rate - Afr Amer 55 mL/min (>60); Estimated Creatinine Clearance 38.48 ml/min; Glucose 99 mg/dL (74-106); Potassium 3.6 mmol/L (3.5-5.1); Sodium Level 139 mmol/L (136-145); Thyroid Stim Hormone (TSH) 1.76 uIU/mL (0.358-3.74)
[2020-08-31 06:20] LABS: Bedside Glucose 94 mg/dL (70-110)
--- NOTE | 2020-08-31 08:10 | RAD_ITS ---
STUDY: X-RAY CHEST REASON FOR EXAM: Male, 75 years old. HYPOXIA TECHNIQUE: Single AP portable view of the chest. COMPARISON: None. FINDINGS: The lungs are clear and expanded. There is no demonstrated pleural abnormality. Normal size heart. Normal mediastinum and vibha. Normal visualized pulmonary arteries. Normal visualized aortic arch and descending thoracic aorta. Normal visualized thoracic spine. There is degenerative osteoarthritis of the bilateral shoulders. There is an old right clavicle fracture. There is no demonstrated abnormality of the visualized soft tissue structures of the upper abdomen. RAD/Chest PA and Lateral IMPRESSION: Normal x-ray examination of the chest. Electronically Signed: Elton Quarles MD at 11:41 EST Tel , Service support ,
[2020-08-31 08:32] VITALS: BP 109/62; PULSE 110; RESP 16; TEMP 37; O2SAT 94
[2020-08-31] MEDS: Escitalopram Oxalate 10 MG Tablet PO (09:13)
[2020-08-31] MEDS: Ferrous Sulfate 325 MG Tablet PO (09:13)
[2020-08-31] MEDS: Senna/Docusate Sodium 1 Tablet 2 TABLET PO (09:17)
[2020-08-31] MEDS: Enoxaparin 30 MG/0.3 ML Syringe SC (09:22)
[2020-08-31 09:32] VITALS: BP 116/66; PULSE 109; RESP 16; TEMP 36.6; O2SAT 93
--- NOTE | 2020-08-31 10:23 | CASEMGMT ---
Patient is from [facility]. ALESSIA attempted to call patient's son who is also his HCPOA, but he was not available and his voice mailbox was full. ALESSIA faxed updates to [facility] and also spoke with Tammi. She did not anticipate any reason patient could not return. ALESSIA told her we will keep them informed. Dalia TORRES
--- NOTE | 2020-08-31 10:28 | DCINST_ITS ---
- Discharge Diagnoses Current Active Problems: Current Active and Chronic Problems History of type 2 diabetes mellitus (Chronic) History of hypertension (Chronic) History of hypercholesterolemia (Chronic) History of gastroesophageal reflux (GERD) (Chronic) Dementia (Chronic) Iron deficiency anemia (Chronic) Altered mental status (Acute) You will use the following diet at home:: No restrictions Discharge Activity: Return to Normal Activity Call your doctor if you observe: Shortness of breath, Dizziness, Fainting spells, Chest pain Additional Instructions: Home Ativan and Flexeril as needed regimen discontinued due to intermittent drowsiness. May consider reducing gabapentin regimen if patient continues to have drowsiness. Allergies/Adverse Reactions: Allergies shellfish derived Allergy (Verified 08/30/20 15:08) Unknown Medications to take at Discharge Atorvastatin Calcium [Lipitor] 20 mg PO QHS 08/28/20 Cimetidine 400 mg PO DAILY 08/28/20 Diltiazem HCl [Cartia Xt] 180 mg PO DAILY 08/28/20 Escitalopram Oxalate 10 mg PO DAILY 08/28/20 Ferrous Sulfate 325 mg PO DAILY 08/28/20 Memantine HCl 5 mg PO BID 08/28/20 Metformin HCl 1,000 mg PO BID 08/28/20 Nateglinide 120 mg PO TIDCM 08/28/20 Quetiapine Fumarate [Seroquel] 25 mg PO QHS 08/28/20 Valsartan/Hydrochlorothiazide [Valsartan-Hctz 320-25 mg Tab] 1 tab PO DAILY 08/28/20 Acetaminophen [Tylenol Arthritis] 1,300 mg PO BID 08/30/20 Gabapentin [Neurontin] 300 mg PO TID 08/30/20 Primary Care Physician: Riddhi Cantrell MD [Primary Care Provider] - Please follow up with your Primary Care Physician in: 1 Week Test Results: Test results from this visit will be discussed in further detail at your follow- up appointment, if applicable. Proposed Discharge Date: 08/31/20
[2020-08-31] MEDS: Memantine Hydrochloride 5 MG Tablet PO (10:31)
--- NOTE | 2020-08-31 10:36 | PCM.DC.SUM ---
<HoseaColette PATIENT REGISTRATION CLERK - Last Filed: 08/31/20 10:45> Discharge Date and Diagnosis - Problem List Patient Problems: Active and Suspected Problems Altered mental status (Acute) Date of Admission: 08/30/20 Date of Discharge: 08/31/20 - Primary Discharge Diagnosis Acute Problems: Active Problems 1. Increased confusion, underlying dementia 2. Recent fall 3. Chronic kidney disease stage III 4. Type 2 diabetes mellitus 5. Hypertension 6. Hyperlipidemia 7. GERD 8. Iron deficiency anemia - Secondary Discharge Diagnosis Chronic Problems: Chronic Problems History of type 2 diabetes mellitus (Chronic) History of hypertension (Chronic) History of hypercholesterolemia (Chronic) History of gastroesophageal reflux (GERD) (Chronic) Dementia (Chronic) Iron deficiency anemia (Chronic) Hospital Course and Treatment Imaging Results: Diagnostic Data Brain CT 08/30/20 15:20 IMPRESSION: Atrophy and moderate periventricular white matter ischemic changes. No evidence for acute intracranial bleed. Electronically Signed: Jared Hill MD at 16:15 EST , Service support , Cervical Spine CT 08/30/20 15:20 IMPRESSION: No evidence for acute fracture or other significant bony pathology.. Spondylosis and multilevel spinal stenosis secondary to disc disease and bony hypertrophy most severe at C4-5, C5-6 and C6-7 Electronically Signed: Jared Hill MD at 16:19 EST , Service support , Operations: None Procedures: None Summary of Care Provided: The patient is a 75 year old M admitted 08/30/2020 due to altered mental status. 1. Increased confusion, underlying dementia-patient has noted confusion at baseline due to underlying dementia. Reports state patient intermittently difficult to arouse/drowsy. On assessment patient is alert, pleasantly confused. States it is 1990 however reports correct month. Home as needed Ativan and Flexeril discontinued as this may contribute to confusion and drowsiness. Brain CT negative for acute process. UA unremarkable. No evidence of infectious or metabolic etiology. Suspect worsening underlying dementia. Continue home memantine, Seroquel. Follow-up with PCP within 1 week. 2. Recent fall-evaluated in ED day prior to admission. Imaging without acute process. Cervical spine CT completed on admission without acute process. PT eval pending. Social work discussed with assisted living facility RN and at this time there is no concern with patient returning to assisted living. Will review PT eval prior to discharge. 3. Chronic kidney disease stage III-at baseline. 4. Type 2 diabetes mellitus-continue home oral regimen. 5. Hypertension-stable, continue valsartan/HCTZ, Cardizem. 6. Hyperlipidemia- continue statin. 7. GERD- continue home cimetidine regimen. 8. Iron deficiency anemia- stable. Patient seen and examined prior to discharge. Physical assessment as noted below. Patient is stable for discharge with follow up recommendations as noted above. This patient was seen by ALIS Saldivar under the supervision of Dr. Suarez. Patient Problems: Active and Suspected Problems Altered mental status (Acute) - Physical Exam Vitals/I&O's: Vital Signs Temp Pulse Resp BP Pulse Ox 97.8 F 109 H 16 116/66 93 08/31/20 09:32 08/31/20 09:32 08/31/20 09:32 08/31/20 09:32 08/31/20 09:32 Oxygen Flow Rate (L/min) 2 Oxygen Delivery Method Room Air Weight: 223 lb 8.78 oz Body Mass Index (BMI) 34.0 Intake and Output for Last 24 Hours 08/29/20 08/30/20 08/31/20 23:59 23:59 23:59 Intake Total 50 / 50 835 / 835 Output Total 400 / 400 Balance 50 / 50 435 / 435 General: Alert, Cooperative, No apparent distress, Confused HEENT: Atraumatic, PERRLA, EOMI, Normocephalic Neck: Supple, No JVD, Negative Carotid Bruits Lungs: Clear to auscultation, Normal air movement Cardiovascular: Regular rate, No murmurs Abdomen: Bowel Sounds Present, Soft, Non Tender, Non-Distended Extremities: No clubbing, No cyanosis, No edema, Capillary Refill Less than 3 Seconds Skin: No rashes, No breakdown Musculoskeletal: No Tenderness to Palpation of Joints or Extremities Neurological: Cranial nerves II-XII grossly intact, Neuro grossly intact Psych/Mental Status: Normal Affect, Appropriate Microbiology Past 72 Hours 08/30/20 15:24 Mucosa - Nose SARS-CoV-2 Antigen (Rapid) - Final Laboratory Results 08/30/20 15:10: WBC 9.3, RBC 3.90 L, Hgb 11.5 L, Hct 35.3 L, MCV 90.5, MCH 29.5, MCHC 32.6, RDW Std Deviation 41.0, RDW Coeff of Sanchez 12.3, Plt Count 314, MPV 8.9, Immature Gran % (Auto) 0.200, Neut % (Auto) 61.8, Lymph % (Auto) 22.7, [place] % (Auto) 11.6 H, Eos % (Auto) 3.1, Baso % (Auto) 0.6, Absolute Neuts (auto) 5.8, Absolute Lymphs (auto) 2.12, Nucleated RBC % 0 08/30/20 15:10: Sodium 135 L, Potassium 4.6, Chloride 101, Carbon Dioxide 28.0, Anion Gap 6, BUN 30 H, Creatinine 1.85 H, Estim Creat Clear Calc 32.86, Est GFR (MDRD) Af Amer 46 L, Est GFR (MDRD) Non-Af 38 L, BUN/Creatinine Ratio 16.2, Glucose 108 H, Calcium 9.3, Total Bilirubin 0.40, AST 21, ALT 17, Alkaline Phosphatase 88, Total Protein 8.0, Albumin 2.8 L, Globulin 5.2 H, Albumin/Globulin Ratio 0.5 L 08/30/20 15:10: Magnesium 1.6 08/30/20 15:59: Urine Color Yellow, Urine Clarity Clear, Urine pH 5.0, Ur Specific [place] 1.015, Urine Protein 15 H, Urine Glucose (UA) Normal, Urine Ketones Negative, Urine Occult Blood 10 H, Urine Nitrite Negative, Urine Bilirubin Negative, Urine Urobilinogen Normal, Ur Leukocyte Esterase 25 H, Urine RBC 0-5 SEEN, Urine WBC 0-5 SEEN, Ur Squamous Epith Cells 0-5 SEEN, Amorphous Sediment 1+ URATE, Urine Bacteria 0 SEEN, Hyaline Casts 0-5 SEEN, Urine Mucus 0 SEEN 08/30/20 22:02: POC Glucose 139 H 08/31/20 05:38: Sodium 139, Potassium 3.6, Chloride 103, Carbon Dioxide 29.0, Anion Gap 7, BUN 32 H, Creatinine 1.58 H, Estim Creat Clear Calc 38.48, Est GFR (MDRD) Af Amer 55 L, Est GFR (MDRD) Non-Af 46 L, BUN/Creatinine Ratio 20.3 H, Glucose 99, Calcium 8.7, TSH 1.76 08/31/20 05:38: WBC 7.6, RBC 3.55 L, Hgb 10.2 L, Hct 32.6 L, MCV 91.8, MCH 28.7, MCHC 31.3 L, RDW Std Deviation 42.5, RDW Coeff of Sanchez 12.4, Plt Count 299, MPV 8.4, Immature Gran % (Auto) 0.100, Neut % (Auto) 60.3, Lymph % (Auto) 24.2, [place] % (Auto) 11.3 H, Eos % (Auto) 3.3, Baso % (Auto) 0.8, Absolute Neuts (auto) 4.6, Absolute Lymphs (auto) 1.84, Nucleated RBC % 0 08/31/20 06:17: POC Glucose 94 Current Medications Acetaminophen (Acetaminophen 325 Mg Tablet) 650 mg PO Q6H PRN PRN PRN Reason: Pain Score 1-10/Temp > 100.7 F Al Hydroxide/Mg Hydroxide (Mag Hydrox/Al Hydrox/Simeth 30 Ml Udc) 30 ml PO Q6H PRN PRN PRN Reason: Gastric Burning Atorvastatin Calcium (Atorvastatin Calcium 20 Mg Tablet) 20 mg PO QHS [facility] Last Admin: 08/30/20 22:04 Dose: 20 mg Documented by: Bisacodyl (Bisacodyl 5 Mg Tablet) 5 mg PO DAILY PRN PRN PRN Reason: Constipation Dextrose (Dextrose 50%-Water 25 Gm/50 Ml Disp.Syrin) 0 gm IV X1 PRN; Protocol PRN Reason: Hypoglycemia Diltiazem HCl (Diltiazem Cd 180 Mg Capsule) 180 mg PO DAILY [facility] Last Admin: 08/31/20 09:13 Dose: Not Given Documented by: Enoxaparin Sodium (Enoxaparin 30 Mg/0.3 Ml Syringe) 30 mg SC DAILY [facility] Last Admin: 08/31/20 09:22 Dose: 30 mg Documented by: Escitalopram Oxalate (Escitalopram Oxalate 10 Mg Tablet) 10 mg PO DAILY [facility] Last Admin: 08/31/20 09:13 Dose: 10 mg Documented by: Ferrous Sulfate (Ferrous Sulfate 325 Mg Tablet) [facility] Last Admin: 08/31/20 09:13 Dose: 325 mg Documented by: Glucagon (Glucagon 1 Mg/Ml Syringe) 1 mg IM .X1 PRN PRN Reason: Hypoglycemia Insulin Human Lispro (Insulin Lispro 100 Unit/Ml Insuln.Pen) 0 unit SC [facility]; Protocol Last Admin: 08/31/20 06:21 Dose: Not Given Documented by: Memantine (Memantine Hydrochloride 5 Mg Tablet) 5 mg PO BID [facility] Last Admin: 08/31/20 10:31 Dose: 5 mg Documented by: Nitroglycerin (Nitroglycerin (Inpatient Use) 0.4 Mg Tab.Subl) 0.4 mg SUBLINGUAL Q5M PRN PRN Reason: CARDIAC/CHEST PAIN Prochlorperazine Edisylate (Prochlorperazine 10 Mg/2 Ml Vial) 5 mg IV Q4H PRN PRN PRN Reason: Breakthrough nausea/vomiting Quetiapine Fumarate (Quetiapine 25 Mg Tablet) 25 mg PO QMID [facility] Last Admin: 08/30/20 22:04 Dose: Not Given Documented by: Senna/Docusate Sodium (Senna/Docusate Sodium 1 Tablet) 2 tablet PO BID [facility] Last Admin: 08/31/20 09:17 Dose: 2 tablet Documented by: Sodium Chloride (0.9% Saline Lock 10 Ml Syringe) 10 - 40 ml IV UD PRN PRN Reason: SALINE FLUSH Last Admin: 08/30/20 22:03 Dose: 10 ml Documented by: Discharge Diet: No Restrictions Discharge Activity: Return to Normal Activity Call your doctor if you observe: Shortness of breath, Dizziness, Fainting spells, Chest pain Home Medications: Medications to take at Discharge Atorvastatin Calcium [Lipitor] 20 mg PO QHS 08/28/20 Cimetidine 400 mg PO DAILY 08/28/20 Diltiazem HCl [Cartia Xt] 180 mg PO DAILY 08/28/20 Escitalopram Oxalate 10 mg PO DAILY 08/28/20 Ferrous Sulfate 325 mg PO DAILY 08/28/20 Memantine HCl 5 mg PO BID 08/28/20 Metformin HCl 1,000 mg PO BID 08/28/20 Nateglinide 120 mg PO TIDCM 08/28/20 Quetiapine Fumarate [Seroquel] 25 mg PO QHS 08/28/20 Valsartan/Hydrochlorothiazide [Valsartan-Hctz 320-25 mg Tab] 1 tab PO DAILY 08/28/20 Acetaminophen [Tylenol Arthritis] 1,300 mg PO BID 08/30/20 Gabapentin [Neurontin] 300 mg PO TID 08/30/20 Primary Care Physician: Riddhi Cantrell MD [Primary Care Provider] - Please follow up with your Primary Care Physician in: 1 Week Disposition: Asstd Living/Non-Skill [facility] Minutes spent on discharge:: 35 Patient Condition:: Stable Medical Necessity - Tobacco Use Smoking Status: Unknown if ever smoked Meaningful Use Info Meaningful Use Diagnoses (Choose all that apply): None applicable <Maria VictoriarodolfoMisha - Last Filed: 08/31/20 13:00> Discharge Date and Diagnosis - Primary Discharge Diagnosis Acute Problems: Active Problems Altered mental status (Acute) - Secondary Discharge Diagnosis Chronic Problems: Chronic Problems History of type 2 diabetes mellitus (Chronic) History of hypertension (Chronic) History of hypercholesterolemia (Chronic) History of gastroesophageal reflux (GERD) (Chronic) Dementia (Chronic) Iron deficiency anemia (Chronic) Hospital Course and Treatment Imaging Results: 08/31/20 08:10 CXR [Chest PA and Lateral] [RAD] Urgent Summary of Care Provided: TThis patient was seen in conjunction with ALIS Saldivar . I have independently interviewed and examined the patient and reviewed pertinent historical, laboratory, and other data. Please refer to ALIS Saldivar note for details of this patient's presentation, findings, and recommendations. I have reviewed ALIS Saldivar note and concur with documented findings. In brief, patient is a 75-year-old gentleman with underlying history of dementia admitted with increasing confusion. Patient was found to have worsening kidney function admitted to regular nursing floor managed with fluids. Kidney function did improve. Patient returned back to his baseline discharge back to his assisted living facility - Physical Exam Vitals/I&O's: Vital Signs Temp Pulse Resp BP Pulse Ox 99 F 104 H 16 112/66 98 08/31/20 12:05 08/31/20 12:05 08/31/20 12:05 08/31/20 12:05 08/31/20 12:05 Oxygen Flow Rate (L/min) 2 Oxygen Delivery Method Room Air Weight: 101.4 kg Body Mass Index (BMI) 34.0 Intake and Output for Last 24 Hours 08/29/20 08/30/20 08/31/20 23:59 23:59 23:59 Intake Total 50 50 835 / 835 Output Total 400 / 400 Balance 50 / 50 435 / 435 Microbiology Past 72 Hours 08/30/20 15:24 Mucosa - Nose SARS-CoV-2 Antigen (Rapid) - Final Laboratory Results 08/30/20 15:10: WBC 9.3, RBC 3.90 L, Hgb 11.5 L, Hct 35.3 L, MCV 90.5, MCH 29.5, MCHC 32.6, RDW Std Deviation 41.0, RDW Coeff of Sanchez 12.3, Plt Count 314, MPV 8.9, Immature Gran % (Auto) 0.200, Neut % (Auto) 61.8, Lymph % (Auto) 22.7, [place] % (Auto) 11.6 H, Eos % (Auto) 3.1, Baso % (Auto) 0.6, Absolute Neuts (auto) 5.8, Absolute Lymphs (auto) 2.12, Nucleated RBC % 0 08/30/20 15:10: Sodium 135 L, Potassium 4.6, Chloride 101, Carbon Dioxide 28.0, Anion Gap 6, BUN 30 H, Creatinine 1.85 H, Estim Creat Clear Calc 32.86, Est GFR (MDRD) Af Amer 46 L, Est GFR (MDRD) Non-Af 38 L, BUN/Creatinine Ratio 16.2, Glucose 108 H, Calcium 9.3, Total Bilirubin 0.40, AST 21, ALT 17, Alkaline Phosphatase 88, Total Protein 8.0, Albumin 2.8 L, Globulin 5.2 H, Albumin/Globulin Ratio 0.5 L 08/30/20 15:10: Magnesium 1.6 08/30/20 15:59: Urine Color Yellow, Urine Clarity Clear, Urine pH 5.0, Ur Specific [place] 1.015, Urine Protein 15 H, Urine Glucose (UA) Normal, Urine Ketones Negative, Urine Occult Blood 10 H, Urine Nitrite Negative, Urine Bilirubin Negative, Urine Urobilinogen Normal, Ur Leukocyte Esterase 25 H, Urine RBC 0-5 SEEN, Urine WBC 0-5 SEEN, Ur Squamous Epith Cells 0-5 SEEN, Amorphous Sediment 1+ URATE, Urine Bacteria 0 SEEN, Hyaline Casts 0-5 SEEN, Urine Mucus 0 SEEN 08/30/20 22:02: POC Glucose 139 H 08/31/20 05:38: Sodium 139, Potassium 3.6, Chloride 103, Carbon Dioxide 29.0, Anion Gap 7, BUN 32 H, Creatinine 1.58 H, Estim Creat Clear Calc 38.48, Est GFR (MDRD) Af Amer 55 L, Est GFR (MDRD) Non-Af 46 L, BUN/Creatinine Ratio 20.3 H, Glucose 99, Calcium 8.7, TSH 1.76 08/31/20 05:38: WBC 7.6, RBC 3.55 L, Hgb 10.2 L, Hct 32.6 L, MCV 91.8, MCH 28.7, MCHC 31.3 L, RDW Std Deviation 42.5, RDW Coeff of Sanchez 12.4, Plt Count 299, MPV 8.4, Immature Gran % (Auto) 0.100, Neut % (Auto) 60.3, Lymph % (Auto) 24.2, [place] % (Auto) 11.3 H, Eos % (Auto) 3.3, Baso % (Auto) 0.8, Absolute Neuts (auto) 4.6, Absolute Lymphs (auto) 1.84, Nucleated RBC % 0 08/31/20 06:17: POC Glucose 94 08/31/20 11:06: POC Glucose 120 H Current Medications Acetaminophen (Acetaminophen 325 Mg Tablet) 650 mg PO Q6H PRN PRN PRN Reason: Pain Score 1-10/Temp > 100.7 F Al Hydroxide/Mg Hydroxide (Mag Hydrox/Al Hydrox/Simeth 30 Ml Udc) 30 ml PO Q6H PRN PRN PRN Reason: Gastric Burning Atorvastatin Calcium (Atorvastatin Calcium 20 Mg Tablet) 20 mg PO QHS [facility] Last Admin: 08/30/20 22:04 Dose: 20 mg Documented by: Bisacodyl (Bisacodyl 5 Mg Tablet) 5 mg PO DAILY PRN PRN PRN Reason: Constipation Dextrose (Dextrose 50%-Water 25 Gm/50 Ml Disp.Syrin) 0 gm IV X1 PRN; Protocol PRN Reason: Hypoglycemia Diltiazem HCl (Diltiazem Cd 180 Mg Capsule) 180 mg PO DAILY [facility] Last Admin: 08/31/20 09:13 Dose: Not Given Documented by: Enoxaparin Sodium (Enoxaparin 30 Mg/0.3 Ml Syringe) 30 mg SC DAILY [facility] Last Admin: 08/31/20 09:22 Dose: 30 mg Documented by: Escitalopram Oxalate (Escitalopram Oxalate 10 Mg Tablet) 10 mg PO DAILY [facility] Last Admin: 08/31/20 09:13 Dose: 10 mg Documented by: Ferrous Sulfate (Ferrous Sulfate 325 Mg Tablet) [facility] Last Admin: 08/31/20 09:13 Dose: 325 mg Documented by: Glucagon (Glucagon 1 Mg/Ml Syringe) 1 mg IM .X1 PRN PRN Reason: Hypoglycemia Insulin Human Lispro (Insulin Lispro 100 Unit/Ml Insuln.Pen) 0 unit SC [facility]; Protocol Last Admin: 08/31/20 11:07 Dose: Not Given Documented by: Memantine (Memantine Hydrochloride 5 Mg Tablet) 5 mg PO BID [facility] Last Admin: 08/31/20 10:31 Dose: 5 mg Documented by: Nitroglycerin (Nitroglycerin (Inpatient Use) 0.4 Mg Tab.Subl) 0.4 mg SUBLINGUAL Q5M PRN PRN Reason: CARDIAC/CHEST PAIN Prochlorperazine Edisylate (Prochlorperazine 10 Mg/2 Ml Vial) 5 mg IV Q4H PRN PRN PRN Reason: Breakthrough nausea/vomiting Quetiapine Fumarate (Quetiapine 25 Mg Tablet) 25 mg PO QHS [facility] Last Admin: 08/30/20 22:04 Dose: Not Given Documented by: Senna/Docusate Sodium (Senna/Docusate Sodium 1 Tablet) 2 tablet PO BID [facility] Last Admin: 08/31/20 09:17 Dose: 2 tablet Documented by: Sodium Chloride (0.9% Saline Lock 10 Ml Syringe) 10 - 40 ml IV UD PRN PRN Reason: SALINE FLUSH Last Admin: 08/30/20 22:03 Dose: 10 ml Documented by: OBSV E&M: [id number] Observation care discharge
[2020-08-31 11:16] LABS: Bedside Glucose 120 mg/dL (70-110)
[2020-08-31 12:05] VITALS: BP 112/66; PULSE 104; RESP 16; TEMP 37.2; O2SAT 98
--- NOTE | 2020-08-31 13:12 | PHA.DC.MR ---
Pharmacy Service has performed discharge medication reconciliation for this patient upon transfer back to [facility]. Home Medications Atorvastatin Calcium [Lipitor] 20 mg PO QHS 08/28/20 Cimetidine 400 mg PO DAILY 08/28/20 Diltiazem HCl [Cartia Xt] 180 mg PO DAILY 08/28/20 Escitalopram Oxalate 10 mg PO DAILY 08/28/20 Ferrous Sulfate 325 mg PO DAILY 08/28/20 Memantine HCl 5 mg PO BID 08/28/20 Metformin HCl 1,000 mg PO BID 08/28/20 Nateglinide 120 mg PO TIDCM 08/28/20 Quetiapine Fumarate [Seroquel] 25 mg PO QHS 08/28/20 Valsartan/Hydrochlorothiazide [Valsartan-Hctz 320-25 mg Tab] 1 tab PO DAILY 08/28/20 Acetaminophen [Tylenol Arthritis] 1,300 mg PO BID 08/30/20 Gabapentin [Neurontin] 300 mg PO TID 08/30/20 The patient's discharge medication list was reviewed for discrepancies and discrepancies were resolved.
--- NOTE | 2020-08-31 14:10 | CASEMGMT ---
Social Work Note ALESSIA attempted to call pt's son Henri again (POA) to confirm discharge plans, no answer, voicemail full and unable to leave message. ALESSIA discussed case with Melissa ALCANTARA, Next field contact technician for pt is pt's niece Sue. ALESSIA placed a call to Sue's number and Andreina, pt's sister answered. Andreina states she and Sue live together. SW asked to speak with Sue. Sue and Andreina state that they were never notified pt was admitted last night to [facility]. Both Andreina and Sue confirm plan is for pt to return to [facility]. ALESSIA updated Sue that pt will be discharged back to [facility] today. ALESSIA informed Sue that pt's son has been contacted multiple times with no answer and voicemail is full so not able to leave message. Sue states pt's son Henri doesn't answer phone calls and she will text him/update him. ALESSIA updated Andreina on transportation time. ALESSIA spoke with PT/OT, pt can return to [facility]. ALESSIA spoke with RN, due to pt's confusion and dementia, pt can transport via cot. ALESSIA accessed trip assist and arranged transportation via cot for 3:00pm. Transportation form completed and placed on SNF folder and copy on pt's chart. ALESSIA faxed discharge paperwork and instructions and COVID screening tool/negative COVID test to [facility]. Original in SNF folder and copy on pt's chart. ALESSIA placed a call to [facility] and spoke with staff, updated on discharge and transportation time to [facility]. RN updated on transportation time. Plan: Return to [facility] via cot at 3:00pm Darshana Perdomo MSW, [employer]
[2020-08-31 14:40] VITALS: O2SAT 97
== END 2020-08-31 15:35 | disposition home or self-care (01) ==
LOC: ED 15:36 → MS3 20:32
PROVIDERS: Admitting Provider Internal Medicine; Emergency Provider Emergency Medicine; PCP Family Medicine; Visit Provider Internal Medicine
DX: R41.82 Altered mental status, unspecified (principal); F03.90 Unspecified dementia, unspecified severity, without behavioral disturbance, psychotic disturbance, mood disturbance, and anxiety; N18.30 Chronic kidney disease, stage 3 unspecified; E11.22 Type 2 diabetes mellitus with diabetic chronic kidney disease; I12.9 Hypertensive chronic kidney disease with stage 1 through stage 4 chronic kidney disease, or unspecified chronic kidney disease; E78.5 Hyperlipidemia, unspecified; K21.9 Gastro-esophageal reflux disease without esophagitis; D50.9 Iron deficiency anemia, unspecified; Z79.899 Other long term (current) drug therapy; Z79.84 Long term (current) use of oral hypoglycemic drugs
CPT/HCPCS: 36415; 70450; 71046; 72125; 80048; 80053; 81001; 82962; 83735; 84443; 85025; 87426; 96360; 96361; 96372; 97162; 97166; 99218; 99251; 99285; J7030; A4216; G0378; G0463

== ENCOUNTER → 2020-09-08 05:00 | Outpatient (REF) | payer SELFPAY ==
[2020-08-30 18:49] VITALS: BMI 34.0
[2020-09-08 07:14] LABS: Hematocrit 32.3 % (40-54); Hemoglobin 10.5 g/dL (13.0-16.5); Mean Corp Hgb Conc 32.5 g/dL (32-36); Mean Corpuscular Hgb 29.6 pg (27.0-32.0); Mean Platelet Vol. 8.5 fl (6.2-12.0); Platelet Count 441 K/mm3 (150-450); RBC Distribution Width CV 12.7 % (11.6-14.6); RBC Distribution Width SD 41.9 fl (35.1-43.9); Red Blood Count 3.55 M/mm3 (4.6-6.2); White Blood Count 10.5 K/mm3 (4.4-11.0)
[2020-09-08 07:28] LABS: Anion Gap 4 (5-15); BUN 37 mg/dL (7-18); BUN/Creat Ratio 24.8 RATIO (10-20); Calcium,Total 8.6 mg/dL (8.5-10.1); Chloride 106 mmol/L (98-107); Creatinine, Serum 1.49 mg/dL (0.70-1.30); EST Glomerular Filtration Rate 49 mL/min (>60); Est Glom Filt Rate - Afr Amer 59 mL/min (>60); Glucose 101 mg/dL (74-106); Potassium 4.2 mmol/L (3.5-5.1); Sodium Level 140 mmol/L (136-145)
== END ==
LOC: OLS.BROOKB 05:00
PROVIDERS: PCP Family Medicine; Visit Provider Registered Nurse
DX: R53.83 Other fatigue (principal); R41.82 Altered mental status, unspecified
CPT/HCPCS: 36415; 80048; 85027

== ENCOUNTER → 2021-02-05 05:00 | Outpatient (REF) | payer SELFPAY ==
[2020-08-30 18:49] VITALS: BMI 34.0
[2021-02-05 08:46] LABS: Hematocrit 35.1 % (40-54); Hemoglobin 11.1 g/dL (13.0-16.5); Mean Corp Hgb Conc 31.6 g/dL (32-36); Mean Corpuscular Hgb 29.7 pg (27.0-32.0); Mean Corpuscular Volume 93.9 fL (80-94); Mean Platelet Vol. 9.3 fl (6.2-12.0); Platelet Count 253 K/mm3 (150-450); RBC Distribution Width CV 12.6 % (11.6-14.6); RBC Distribution Width SD 43.4 fl (35.1-43.9); Red Blood Count 3.74 M/mm3 (4.6-6.2); White Blood Count 9.6 K/mm3 (4.4-11.0)
[2021-02-05 08:58] LABS: ALB/GLOB Ratio 0.9 RATIO (0.9-2.4); AST(SGOT) 20 U/L (15-37); Alanine Aminotransfer ALT/SGPT 36 U/L (16-61); Albumin, Serum 3.2 g/dL (3.2-5.0); Alkaline Phosphatase 89 U/L (45-117); Anion Gap 5 (5-15); BUN 17 mg/dL (7-18); BUN/Creat Ratio 10.9 RATIO (10-20); Calcium,Total 8.3 mg/dL (8.5-10.1); Chloride 106 mmol/L (98-107); Cholesterol 115 mg/dL (200); Creatinine, Serum 1.56 mg/dL (0.70-1.30); EST Glomerular Filtration Rate 46 mL/min (>60); Est Glom Filt Rate - Afr Amer 56 mL/min (>60); Globulin 3.4 g/dL (2.2-4.2); Glucose 102 mg/dL (74-106); High Density Lipoprotein 33 mg/dL; Potassium 3.8 mmol/L (3.5-5.1); Protein, Total 6.6 g/dL (6.4-8.2); Sodium Level 140 mmol/L (136-145); Triglycerides 113 mg/dL; Very Low Density Lipoprotein 23 mg/dL (5-40)
[2021-02-05 09:23] LABS: Hemoglobin A1c 6.9 % (3.8-5.6)
== END ==
LOC: OLS.BROOKB 05:00
PROVIDERS: PCP Family Medicine; Visit Provider Family Medicine
DX: D64.9 Anemia, unspecified (principal); E11.9 Type 2 diabetes mellitus without complications; I10 Essential (primary) hypertension
CPT/HCPCS: 36415; 80053; 80061; 83036; 85027

== ENCOUNTER 2021-05-28 15:34 | Emergency (ER) | payer SELFPAY ==
[2021-05-28 15:39] VITALS: BP 150/82; PULSE 104; RESP 15; TEMP 36.9; O2SAT 97; BMI 33.0
--- NOTE | 2021-05-28 15:49 | ED.RN ---
THIS NURSE SPOKE WITH THE NURSE AT THE [facility]. PT HAS HAD 2 WITNESSED FALLS AT [facility]. FIRST PT WAS REARRANGING FURNITURE AND FELL TO KNEES THEN ON ALL FOURS. THE SECOND FALL THE PT SAT DOWN ON THE GROUND AND HAD TO BE HELPED UP SO HAS TO BE CLASSIFIED A FALL. THE PT NORMALLY AXOX2 PERSON AND SITUATION. MORE LETHARGIC TODAY. SLEPT THROUGH BREAKFAST AND FELL ASLEEP AT LUNCH TABLE. PT DID NOT WANT ANY LEMONADE AND HE ALWAYS GETS 2 GLASSES OF LEMONADE
[2021-05-28 15:58] VITALS: BP 132/80; PULSE 98; RESP 18
--- NOTE | 2021-05-28 16:23 | EKG12_ITS ---
Test Reason : ALTERED LOC Blood Pressure : / mmHG Vent. Rate : 097 BPM Atrial Rate : 097 BPM P-R Int : 214 ms QRS Dur : 092 ms QT Int : 328 ms P-R-T Axes : 036 -13 051 degrees QTc Int : 416 ms Sinus rhythm with 1st degree A-V block Otherwise normal ECG Confirmed by POLLY MASON, BRITTANY ([id number]), editor sound ZOYA EASTMAN ([id number]) on 05/30/2021 9:23:27 AM Referred By: TAMMIE Confirmed By:BRITTANY MATIAS MD
--- NOTE | 2021-05-28 16:42 | EX.ED.DYSGE1 ---
HPI History of Present Illness Chief Complaint: Alt LOC Informant: SNF Onset/Context/Timing Onset: Days Context: Gradual Onset Timing: Continuous Narrative Narrative: Patient presents with frequent falls and altered mental status that became worse today. Patient lives in extended-care facility. ECF states that he has been falling more frequently. Patient is only alert and oriented to person. Patient does not know where he has had or what year it is. Patient is a poor historian. Patient denies any pain anywhere. [facility] Medical History Anemia Cognitive impairment Dementia HTN (hypertension) Hyperlipidemia Obesity Type 2 diabetes mellitus Home Medications atorvastatin 20 mg PO QHS 08/28/20 [History Last Taken 08/29/20] cimetidine 400 mg PO DAILY 08/28/20 [History Last Taken 08/30/20] diltiazem HCl 180 mg PO DAILY 08/28/20 [History Last Taken 08/30/20] escitalopram oxalate 10 mg PO DAILY 08/28/20 [History Last Taken 08/30/20] ferrous sulfate 325 mg PO DAILY 08/28/20 [History Last Taken 08/30/20] memantine 5 mg PO BID 08/28/20 [History Last Taken 08/30/20] metformin 1,000 mg PO BID 08/28/20 [History Last Taken 08/30/20] nateglinide 120 mg PO TIDCM 08/28/20 [History Last Taken 08/30/20] quetiapine 100 mg PO TID 08/28/20 [History Last Taken 08/29/20] valsartan-hydrochlorothiazide 1 tab PO DAILY 08/28/20 [History Last Taken 08/29/20] acetaminophen 1,300 mg PO BID 08/30/20 [History Last Taken 08/30/20] gabapentin 300 mg PO TID 08/30/20 [History Last Taken 08/30/20] lorazepam 0.5 mg PO BID 05/28/21 [History Last Taken Unknown] sertraline 50 mg PO DAILY 05/28/21 [History Last Taken Unknown] Allergy/AdvReac Type Severity Reaction Status Date / Time shellfish derived Allergy Unknown Verified 08/30/20 15:08 Social History Smoking Status: Unknown if ever smoked ROS ROS ED Review of Systems ROS Unobtainable: due to mental status EXAM Physical Exam Const Vital Signs: 05/28/21 15:39 05/28/21 15:58 05/28/21 19:19 Temperature 98.4 F Temperature Source Temporal Pulse Rate 104 H 98 84 Respiratory Rate 15 18 12 Respiratory Effort Normal Respiratory Pattern Normal Blood Pressure 150/82 H 132/80 H 137/36 H Blood Pressure Mean 104 97 69 Pulse Ox 97 96 Oxygen Delivery Method Room Air Room Air Positive well nourished and well developed General Appearance ED: well developed HEENT Reports moist mucous membranes Neck supple and no JVD Resp normal respiratory effort and clear to auscultation bilaterally Cardio regular rate, regular rhythm and no murmurs GI normal to inspection, nondistended, normoactive bowel sounds and non-tender Palpation: soft Extremity normal to inspection General Extremety ED: Negative for edema or tenderness General Extremity: Negative for edema Neuro CN's II-XII intact bilaterally Neuro Narrative: Patient moves all extremities. Patient does not follow directions well. Sensorium / Orientation: alert and orientation impaired Psych mental status grossly normal Skin no rashes or lesions noted MDM MDM MDM Narrative Medical decision making narrative: EKG was obtained. On my interpretation, it showed a sinus rhythm with a first-degree AV block with a rate of 97. QRS interval and QTc intervals were normal. [place] was normal. There are no acute ST or T wave changes. This was unchanged compared to previous EKG dated 08/28/2020. Patient refused CT scan of the brain. Patient states he was claustrophobic and does not want to lay down. Portable 1 view chest x-ray was obtained. On my interpretation, lung kearns are clear. There is normal cardiac silhouette. Bony thorax is normal. There is no acute process noted. Radiologist also interpreted the x-ray and agrees. CBC was within normal limits with the exception of a mild anemia of hemoglobin of 11.0 and hematocrit of 34.5. Comprehensive metabolic profile shows slightly elevated creatinine of 2.32. This was slightly worse than previous result. Urinalysis does not show any evidence of urinary tract infection. Initial high-sensitivity troponin was normal at 7. 2-hour repeat high-sensitivity troponin was normal at 8. Venous blood gas was obtained and was within normal limits. Patient was ambulatory here in the emergency department. Patient appeared to be steady on his feet. Patient will be discharged back to the extended care facility. Patient is agreeable with the plan. Lab Data Attestation: I reviewed the patient's lab results. Labs: Laboratory Results - last 24 hr 05/28/21 05/28/21 05/28/21 16:50 16:50 17:20 WBC 10.7 RBC 3.65 L Hgb 11.0 L Hct 34.5 L MCV 94.5 H MCH 30.1 MCHC 31.9 L RDW Std Deviation 44.8 H RDW Coeff of Sanchez 13.0 Plt Count 233 MPV 9.4 Immature Gran % (Auto) 0.500 Neut % (Auto) 65.6 Lymph % (Auto) 16.6 L [place] % (Auto) 10.5 H Eos % (Auto) 6.3 H Baso % (Auto) 0.5 Absolute Neuts (auto) 7.0 Absolute Lymphs (auto) 1.77 Nucleated RBC % 0 Sodium 141 Potassium 4.0 Chloride 109 H Carbon Dioxide 25.0 Anion Gap 7 BUN 42 H Creatinine 2.32 H Estim Creat Clear Calc 31.00 Est GFR (MDRD) Af Amer 35 L Est GFR (MDRD) Non-Af 29 L BUN/Creatinine Ratio 18.1 Glucose 172 H Calcium 8.6 Total Bilirubin 0.20 AST 12 L ALT 16 Alkaline Phosphatase 85 Troponin I High Sens 7 Total Protein 7.5 Albumin 3.0 L Globulin 4.5 H Albumin/Globulin Ratio 0.7 L Urine Color Yellow Urine Clarity Clear Urine pH 5.0 Ur Specific [place] 1.020 Urine Protein 15 H Urine Glucose (UA) Normal Urine Ketones Negative Urine Occult Blood 25 H Urine Nitrite Negative Urine Bilirubin Negative Urine Urobilinogen Normal Ur Leukocyte Esterase Negative Urine RBC 0-5 SEEN Urine WBC 0 SEEN Ur Squamous Epith Cells 0 SEEN Urine Bacteria 0 SEEN Urine Mucus 0 SEEN 05/28/21 19:05 WBC RBC Hgb Hct MCV MCH MCHC RDW Std Deviation RDW Coeff of Sanchez Plt Count MPV Immature Gran % (Auto) Neut % (Auto) Lymph % (Auto) [place] % (Auto) Eos % (Auto) Baso % (Auto) Absolute Neuts (auto) Absolute Lymphs (auto) Nucleated RBC % Sodium Potassium Chloride Carbon Dioxide Anion Gap BUN Creatinine Estim Creat Clear Calc Est GFR (MDRD) Af Amer Est GFR (MDRD) Non-Af BUN/Creatinine Ratio Glucose Calcium Total Bilirubin AST ALT Alkaline Phosphatase Troponin I High Sens 8 Total Protein Albumin Globulin Albumin/Globulin Ratio Urine Color Urine Clarity Urine pH Ur Specific [place] Urine Protein Urine Glucose (UA) Urine Ketones Urine Occult Blood Urine Nitrite Urine Bilirubin Urine Urobilinogen Ur Leukocyte Esterase Urine RBC Urine WBC Ur Squamous Epith Cells Urine Bacteria Urine Mucus ABG Data ABG results: ABG 05/28/21 17:01 Specimen Type HOMER VBG pH 7.33 VBG pO2 29 VBG HCO3 26 VBG Total CO2 28 VBG O2 Sat (Calc) 50 VBG Base Excess 0 POC Mix VBG pCO2 Pt Tmp 50.2 Radiography Chest X-Ray - ED: 1 View, Read by ED Physician, Read by Radiologist and Normal Diagnostic Testing: Clinical Impression(s) from Imaging Studies Chest X-Ray 05/28/21 17:50 IMPRESSION: There are no acute findings. Electronically Signed: Brian Nichols MD at 18:03 EST , Service support , EKG Initial EKG: Attestation: I personally reviewed and interpreted this EKG as follows: Interpretation: Sinus Rhythm (With first-degree AV block with a rate of 97) and No Acute Injury Pattern Prior EKG tracings: available for review Prior: Unchanged (08/28/2020) Discharge Plan Triage Chief Complaint: Alt LOC ED Provider: Jerry Jones Dx/Rx/DC Orders Clinical Impression: Dementia Instructions: ED Confusion Prescriptions: No Action quetiapine 25 MG tablet 100 mg PO TID RF: 0 nateglinide 120 MG tablet 120 mg PO TIDCM RF: 0 atorvastatin 20 MG tablet 20 mg PO QHS RF: 0 diltiazem HCl 180 MG capsule,extended release 24hr 180 mg PO DAILY RF: 0 cimetidine 400 MG tablet 400 mg PO DAILY RF: 0 ferrous sulfate 325 MG tablet 325 mg PO DAILY RF: 0 metformin 1,000 MG tablet 1,000 mg PO BID RF: 0 escitalopram oxalate 10 MG tablet 10 mg PO DAILY RF: 0 memantine 5 MG tablet 5 mg PO BID RF: 0 valsartan-hydrochlorothiazide 1 EACH tablet 1 tab PO DAILY RF: 0 acetaminophen 650 MG tablet extended release 1,300 mg PO BID RF: 0 gabapentin 300 MG capsule 300 mg PO TID RF: 0 lorazepam 0.5 mg Tablet 0.5 mg PO BID RF: 0 sertraline 50 mg Tablet 50 mg PO DAILY RF: 0 Primary Care Provider: Riddhi Cantrell Referrals: Riddhi Cantrell MD [Primary Care Provider] - 5-7 Days Disposition Disposition: Intermediate Facility Discharge Location: [facility] Discharge Date/Time: 05/28/21 20:35
[2021-05-28 17:03] LABS: Absolute Lymphocyte Count 1.77 X10^3/uL (0.83-4.51); Basophil# 0.05 X10^3/uL; Basophil% 0.5 % (0-1); Eosinophil# 0.67 X10^3/uL; Eosinophils% 6.3 % (0-5); Hematocrit 34.5 % (40-54); Lymphocyte # 1.77 X10^3/ul (0.83-4.51); Lymphocyte % 16.6 % (19-41); Mean Corp Hgb Conc 31.9 g/dL (32-36); Mean Corpuscular Hgb 30.1 pg (27.0-32.0); Mean Corpuscular Volume 94.5 fL (80-94); Mean Platelet Vol. 9.4 fl (6.2-12.0); Monocyte# 1.12 X10^3/uL; Monocyte% 10.5 % (0-10); NRBC Flagged by Analyzer 0 % (0-5); Neutrophil # 7.02 X10^3/uL (2.7-7.7); Neutrophil % 65.6 % (47-70); Platelet Count 233 K/mm3 (150-450); RBC Distribution Width SD 44.8 fl (35.1-43.9); Red Blood Count 3.65 M/mm3 (4.6-6.2); White Blood Count 10.7 K/mm3 (4.4-11.0)
[2021-05-28 17:05] LABS: Blood Gas Specimen Type VEN; VBG BASE EXCESS 0 mmol/L (-1.0-3.5); VBG Bicarbonate 26 mmol/L (22-26); VBG PO2 29 mmHg (25-40); VBG SO2 50 % (50-70); VBG TCO2 28 mmol/L (23-33); VBG pCO2 50.2 mmHg (41-51); VBG pH 7.33 (7.32-7.42)
[2021-05-28 17:27] LABS: Bacteria 0 SEEN /hpf (None Seen); Mucous, Urine 0 SEEN /hpf (<or=2+); Squamous Epithelial Cells - UA 0 SEEN /hpf (0-5); White Blood Cells 0 SEEN /hpf (0-5)
[2021-05-28 17:28] LABS: ALB/GLOB Ratio 0.7 RATIO (0.9-2.4); AST(SGOT) 12 U/L (15-37); Alanine Aminotransfer ALT/SGPT 16 U/L (16-61); Alkaline Phosphatase 85 U/L (45-117); Anion Gap 7 (5-15); BUN 42 mg/dL (7-18); BUN/Creat Ratio 18.1 RATIO (10-20); Calcium,Total 8.6 mg/dL (8.5-10.1); Chloride 109 mmol/L (98-107); Creatinine, Serum 2.32 mg/dL (0.70-1.30); EST Glomerular Filtration Rate 29 mL/min (>60); Est Glom Filt Rate - Afr Amer 35 mL/min (>60); Globulin 4.5 g/dL (2.2-4.2); Glucose 172 mg/dL (74-106); Protein, Total 7.5 g/dL (6.4-8.2); Sodium Level 141 mmol/L (136-145); Troponin-I HS 7 pg/mL (3.0-78.0)
[2021-05-28 17:39] LABS: Color, Urine Yellow (Yellow); Glucose, Dipstick Normal (Normal); Ketone-Dipstick Negative (Negative); Leukocyte Esterase-Dipstick Negative /ul (Negative); Nitrite-Dipstick Negative (Negative); Occult Blood-Urine 25 /ul (Negative); Protein-Dipstick 15 mg/dl (Negative); Urine Bilirubin Dipstick Negative (Negative); Urine Clarity Clear (Clear); Urine Urobilinogen Normal (Normal)
[2021-05-28 17:48] LABS: Red Blood Cells-Urine 0-5 SEEN /hpf (0-5)
--- NOTE | 2021-05-28 17:50 | RAD_ITS ---
STUDY: XR Chest 1 View 05/28/2021 5:57 PM REASON FOR EXAM: Male, 76 years old. CHEST PAIN Weakness COMPARISON: 08/31/2020 TECHNIQUE: XR Chest 1 View FINDINGS: There is no demonstrated pleural abnormality. Enlarged heart size. Normal mediastinum. Normal vibha. Prominent appearing increased interstitial lung markings. Normal visualized pulmonary arteries. There is atherosclerotic calcification of the aortic arch with tortuosity. There are diffuse degenerative changes of the visualized thoracic spine. There is degenerative osteoarthritis of the bilateral shoulders. There is no demonstrated abnormality of the visualized soft tissue structures of the upper abdomen. RAD/Chest 1 View (Portable) IMPRESSION: There are no acute findings. Electronically Signed: Brian Nichols MD at 18:03 EST , Service support ,
[2021-05-28 19:19] VITALS: BP 137/36; PULSE 84; RESP 12; O2SAT 96
[2021-05-28] MEDS: 0.9% Normal Saline 1,000 ML 1000 ML IV (19:19)
[2021-05-28 19:29] LABS: Troponin-I HS 8 pg/mL (3.0-78.0)
== END 2021-05-28 20:35 | disposition skilled nursing facility (03) ==
PROVIDERS: Emergency Provider Emergency Medicine; PCP Family Medicine
DX: F03.90 Unspecified dementia, unspecified severity, without behavioral disturbance, psychotic disturbance, mood disturbance, and anxiety (principal); R29.6 Repeated falls; R41.89 Other symptoms and signs involving cognitive functions and awareness; E11.9 Type 2 diabetes mellitus without complications; I10 Essential (primary) hypertension; E78.5 Hyperlipidemia, unspecified; D64.9 Anemia, unspecified; E66.9 Obesity, unspecified; Z79.84 Long term (current) use of oral hypoglycemic drugs; Z79.899 Other long term (current) drug therapy
CPT/HCPCS: 71045; 80053; 81001; 82803; 84484; 85025; 93005; 96360; 99285; J7030; A4216

== ENCOUNTER 2021-07-21 20:53 | Inpatient (IN) | payer MEDICARE, SELFPAY ==
[2021-07-21 20:55] VITALS: BP 70/25; PULSE 158; RESP 16; TEMP 36.4; O2SAT 92; BMI 33.0
--- NOTE | 2021-07-21 21:00 | EKG12_ITS ---
Test Reason : TACHYCARDIA Blood Pressure : / mmHG Vent. Rate : 159 BPM Atrial Rate : 159 BPM P-R Int : 000 ms QRS Dur : 168 ms QT Int : 358 ms P-R-T Axes : 000 253 039 degrees QTc Int : 582 ms Wide QRS tachycardia Right bundle branch block Abnormal ECG Confirmed by POLLY MASON, BRITTANY ([id number]), industrial editor ELIJAH ANN ([id number]) on 07/26/2021 11:26:59 AM Referred By: ER PHYS Confirmed By:BRITTANY MATIAS MD
[2021-07-21 21:08] VITALS: BP 77/40; PULSE 159; RESP 18; O2SAT 99
--- NOTE | 2021-07-21 21:14 | EKG12_ITS ---
Test Reason : POST CARDIOVERSION Blood Pressure : / mmHG Vent. Rate : 101 BPM Atrial Rate : 101 BPM P-R Int : 210 ms QRS Dur : 090 ms QT Int : 338 ms P-R-T Axes : 092 -06 097 degrees QTc Int : 438 ms Sinus tachycardia with 1st degree A-V block with Fusion complexes Nonspecific ST and T wave abnormality Abnormal ECG Confirmed by POLLY MASON, BRITTAYN ([id number]), web content editor ELIJAH ANN ([id number]) on 07/25/2021 10:10:40 AM Referred By: JOJO Confirmed By:BRITTANY MATIAS MD
[2021-07-21 21:21] VITALS: BP 62/32
[2021-07-21 21:21] LABS: Basophil# 0.05 X10^3/uL; Basophil% 0.6 % (0-1); Eosinophil# 0.43 X10^3/uL; Eosinophils% 5.1 % (0-5); Hematocrit 36.3 % (40-54); Hemoglobin 11.7 g/dL (13.0-16.5); Lymphocyte % 29.9 % (19-41); Mean Corp Hgb Conc 32.2 g/dL (32-36); Mean Corpuscular Hgb 29.7 pg (27.0-32.0); Mean Corpuscular Volume 92.1 fL (80-94); Mean Platelet Vol. 9.7 fl (6.2-12.0); Monocyte# 1.34 X10^3/uL; NRBC Flagged by Analyzer 0 % (0-5); Neutrophil # 4.02 X10^3/uL (2.7-7.7); Neutrophil % 48.2 % (47-70); Platelet Count 251 K/mm3 (150-450); RBC Distribution Width CV 13.2 % (11.6-14.6); RBC Distribution Width SD 44.6 fl (35.1-43.9); Red Blood Count 3.94 M/mm3 (4.6-6.2); White Blood Count 8.4 K/mm3 (4.4-11.0)
[2021-07-21] MEDS: 0.9% Normal Saline 1,000 ML 999 ML IV (21:23)
[2021-07-21 21:27] VITALS: BP 124/77; PULSE 105; O2SAT 99
[2021-07-21] MEDS: fentaNYL 100 MCG/2 ML Ampul 25 MCG IV (21:29)
--- NOTE | 2021-07-21 21:42 | ED.VIS.CHEST ---
HPI History of Present Illness Chief Complaint: Palpitations Narrative Narrative: 76-year-old male presenting with chest pain. He reported at the senior living ([place]). EMS states he was pointing to his chest. When I asked him about chest pain he started talking about when he gets hungry. It is hard to get a good story out of him because he is a poor informant secondary to dementia. He has no history of diabetes, hypertension, hyperlipidemia. [facility] Medical History Anemia Cognitive impairment Dementia HTN (hypertension) Hyperlipidemia Obesity Type 2 diabetes mellitus Home Medications atorvastatin 20 mg PO QHS 08/28/20 [History Last Taken 08/29/20] cimetidine 400 mg PO DAILY 08/28/20 [History Last Taken 08/30/20] diltiazem HCl 180 mg PO DAILY 08/28/20 [History Last Taken 08/30/20] ferrous sulfate 325 mg PO DAILY 08/28/20 [History Last Taken 08/30/20] memantine 5 mg PO BID 08/28/20 [History Last Taken 08/30/20] metformin 1,000 mg PO BID 08/28/20 [History Last Taken 08/30/20] nateglinide 120 mg PO TIDCM 08/28/20 [History Last Taken 08/30/20] quetiapine 75 mg PO BID 08/28/20 [History Last Taken 08/29/20] valsartan-hydrochlorothiazide 1 tab PO DAILY 08/28/20 [History Last Taken 08/29/20] acetaminophen 1,300 mg PO BID 08/30/20 [History Last Taken 08/30/20] lorazepam 0.5 mg PO BID 05/28/21 [History Last Taken Unknown] sertraline 50 mg PO DAILY 05/28/21 [History Last Taken Unknown] quetiapine 100 mg PO QHS 07/21/21 [History Last Taken Unknown] Allergy/AdvReac Type Severity Reaction Status Date / Time shellfish derived Allergy Unknown Verified 08/30/20 15:08 Social History Smoking Status: Unknown if ever smoked ROS ROS ED Review of Systems ROS Unobtainable: due to mental status EXAM Physical Exam Const Vital Signs: 07/21/21 20:55 07/21/21 21:08 07/21/21 21:14 Temperature 97.5 F L Temperature Source Oral Pulse Rate 158 H 159 H Respiratory Rate 16 18 Respiratory Effort Normal Blood Pressure 70/25 L 77/40 L Blood Pressure Mean 40 52 Pulse Ox 92 99 Oxygen Delivery Method Room Air Nasal Cannula Oxygen Flow Rate (L/min) 2 07/21/21 21:21 07/21/21 21:27 07/21/21 23:28 Temperature Temperature Source Pulse Rate 105 H 99 Respiratory Rate 18 Respiratory Effort Blood Pressure 62/32 L 124/77 H 93/68 Blood Pressure Mean 42 92 76 Pulse Ox 99 94 Oxygen Delivery Method Nasal Cannula Oxygen Flow Rate (L/min) 2 07/22/21 00:03 Temperature 96.9 F L Temperature Source Oral Pulse Rate 100 Respiratory Rate 18 Respiratory Effort Blood Pressure 131/66 H Blood Pressure Mean 87 Pulse Ox 98 Oxygen Delivery Method Room Air Oxygen Flow Rate (L/min) Positive obese Constitutional Narrative: Tachycardic and hypotensive. General Appearance ED: Negative for pallor Nutritional Appearance: obese HEENT Reports dry mucous membranes normocephalic and atraumatic Mouth ED: Yes dry mucous membranes Mouth: dry mucous membranes Eyes PERRL and EOMs intact bilaterally Resp normal respiratory effort Effort and Inspection: respiratory distress Cardio regular rhythm Rate: tachycardic Rhythm: abnormal rhythm Extremity General Extremety ED: Negative for edema or tenderness General Extremity: Negative for edema Neuro Sensorium / Orientation: awake, alert and confused Skin no rashes or lesions noted General Skin Exam: Negative for jaundice or pallor Heart Score History: Highly Suspicious ECG: Nonspecific Repolarization Age: >/= 65 years Risk Factors: >/= 3 Risk Factors or History of CAD Score: 7 MDM MDM MDM Narrative Medical decision making narrative: Patient presenting with chest pain. He is a poor informant and unable give much history. His EKG on my interpretation shows a wide-complex tachycardia at a rate of 159 bpm concerning for V. tach. Patient is hypotensive. Pacer pads were placed on his chest and he was cardioverted using 150 J synchronized. After this his blood pressure did improve to 124/77 heart rate down to 105. EKG obtained shows a sinus tachycardia with first-degree AV block at a rate of 101 bpm. OK interval 210 ms, QRS duration 90 ms, QTC 438 ms. CBC shows no leukocytosis and his hemoglobin is stable at 11.7. His creatinine had increased to 3.7. He was given IV fluids. Chest x-ray my interpretation shows no acute cardiopulmonary process and radiologist does agree. Since the patient was altered when he initially arrived I did obtain alcohol and a urine drug screen which were both negative. D-dimer is negative. Magnesium is low at 1.4 and this was replaced with 4 g of IV magnesium. I did speak with Dr. Benoit who recommended anything less than to be given magnesium. Also on any potassium less than 4 to be given potassium. This was done because his potassium was 3.9. He was given 4 mEq p.o. High-sensitivity troponin was 12. Patient remained stable after he was cardioverted. He was much improved and actually very friendly. He tried to actually leave the emergency room and at 1 point ripped out his IV incidentally. Patient discussed with hospitalist for admission. Impression: 1. V. tach 2. Chest pain 3. Acute kidney injury Lab Data Attestation: I reviewed the patient's lab results. Labs: Laboratory Results - last 24 hr 07/21/21 07/21/21 07/21/21 21:08 21:08 21:08 WBC 8.4 RBC 3.94 L Hgb 11.7 L Hct 36.3 L MCV 92.1 MCH 29.7 MCHC 32.2 RDW Std Deviation 44.6 H RDW Coeff of [place] 13.2 Plt Count 251 MPV 9.7 Immature Gran % (Auto) 0.200 Neut % (Auto) 48.2 Lymph % (Auto) 29.9 [place] % (Auto) 16.0 H Eos % (Auto) 5.1 H Baso % (Auto) 0.6 Absolute Neuts (auto) 4.0 Absolute Lymphs (auto) 2.50 Nucleated RBC % 0 PT 14.5 INR 1.2 APTT 30.7 D-Dimer Quant (PE/DVT) 0.40 Sodium 141 Potassium 3.9 Chloride 113 H Carbon Dioxide 18.0 L Anion Gap 10 BUN 63 H Creatinine 3.71 H Estim Creat Clear Calc 19.39 Est GFR (MDRD) Af Amer 21 L Est GFR (MDRD) Non-Af 17 L BUN/Creatinine Ratio 17.0 Glucose 189 H Lactic Acid Calcium 8.1 L Magnesium Total Bilirubin 0.20 AST 26 ALT 23 Alkaline Phosphatase 73 Troponin I High Sens 12 Total Protein 7.3 Albumin 3.1 L Globulin 4.2 Albumin/Globulin Ratio 0.7 L Urine Color Urine Clarity Urine pH Ur Specific [place] Urine Protein Urine Glucose (UA) Urine Ketones Urine Occult Blood Urine Nitrite Urine Bilirubin Urine Urobilinogen Ur Leukocyte Esterase Urine RBC Urine WBC Ur Squamous Epith Cells Urine Bacteria Hyaline Casts Urine Mucus Urine Opiates Screen Urine Methadone Screen Ur Barbiturates Screen Ur Phencyclidine Scrn Ur Amphetamines Screen U Methamphetamin-MDMA U Benzodiazepines Scrn Urine Cocaine Screen U Cannabinoids Screen Ur Drug Screen Comment Ethyl Alcohol 07/21/21 07/21/21 07/21/21 21:08 21:35 21:35 WBC RBC Hgb Hct MCV MCH MCHC RDW Std Deviation RDW Coeff of Sanchez Plt Count MPV Immature Gran % (Auto) Neut % (Auto) Lymph % (Auto) [place] % (Auto) Eos % (Auto) Baso % (Auto) Absolute Neuts (auto) Absolute Lymphs (auto) Nucleated RBC % PT INR APTT D-Dimer Quant (PE/DVT) Sodium Potassium Chloride Carbon Dioxide Anion Gap BUN Creatinine Estim Creat Clear Calc Est GFR (MDRD) Af Amer Est GFR (MDRD) Non-Af BUN/Creatinine Ratio Glucose Lactic Acid Cancelled Calcium Magnesium 1.4 L Total Bilirubin AST ALT Alkaline Phosphatase Troponin I High Sens Total Protein Albumin Globulin Albumin/Globulin Ratio Urine Color Urine Clarity Urine pH Ur Specific [place] Urine Protein Urine Glucose (UA) Urine Ketones Urine Occult Blood Urine Nitrite Urine Bilirubin Urine Urobilinogen Ur Leukocyte Esterase Urine RBC Urine WBC Ur Squamous Epith Cells Urine Bacteria Hyaline Casts Urine Mucus Urine Opiates Screen Urine Methadone Screen Ur Barbiturates Screen Ur Phencyclidine Scrn Ur Amphetamines Screen U Methamphetamin-MDMA U Benzodiazepines Scrn Urine Cocaine Screen U Cannabinoids Screen Ur Drug Screen Comment Ethyl Alcohol Cancelled 07/21/21 07/21/21 07/21/21 21:35 21:35 22:15 WBC RBC Hgb Hct MCV MCH MCHC RDW Std Deviation RDW Coeff of Sanchez Plt Count MPV Immature Gran % (Auto) Neut % (Auto) Lymph % (Auto) [place] % (Auto) Eos % (Auto) Baso % (Auto) Absolute Neuts (auto) Absolute Lymphs (auto) Nucleated RBC % PT INR APTT D-Dimer Quant (PE/DVT) Sodium Potassium Chloride Carbon Dioxide Anion Gap BUN Creatinine Estim Creat Clear Calc Est GFR (MDRD) Af Amer Est GFR (MDRD) Non-Af BUN/Creatinine Ratio Glucose Lactic Acid Calcium Magnesium Total Bilirubin AST ALT Alkaline Phosphatase Troponin I High Sens Total Protein Albumin Globulin Albumin/Globulin Ratio Urine Color Yellow Urine Clarity Clear Urine pH 5.0 Ur Specific [place] 1.015 Urine Protein 30 H Urine Glucose (UA) Normal Urine Ketones Negative Urine Occult Blood 25 H Urine Nitrite Negative Urine Bilirubin Negative Urine Urobilinogen Normal Ur Leukocyte Esterase Negative Urine RBC 0-5 SEEN Urine WBC 0-5 SEEN Ur Squamous Epith Cells 0 SEEN Urine Bacteria 0 SEEN Hyaline Casts 0-5 SEEN Urine Mucus 0 SEEN Urine Opiates Screen NEGATIVE Urine Methadone Screen NEGATIVE Ur Barbiturates Screen NEGATIVE Ur Phencyclidine Scrn NEGATIVE Ur Amphetamines Screen NEGATIVE U Methamphetamin-MDMA NEGATIVE U Benzodiazepines Scrn NEGATIVE Urine Cocaine Screen NEGATIVE U Cannabinoids Screen NEGATIVE Ur Drug Screen Comment Ethyl Alcohol Cancelled 07/21/21 23:21 WBC RBC Hgb Hct MCV MCH MCHC RDW Std Deviation RDW Coeff of Sanchez Plt Count MPV Immature Gran % (Auto) Neut % (Auto) Lymph % (Auto) [place] % (Auto) Eos % (Auto) Baso % (Auto) Absolute Neuts (auto) Absolute Lymphs (auto) Nucleated RBC % PT INR APTT D-Dimer Quant (PE/DVT) Sodium Potassium Chloride Carbon Dioxide Anion Gap BUN Creatinine Estim Creat Clear Calc Est GFR (MDRD) Af Amer Est GFR (MDRD) Non-Af BUN/Creatinine Ratio Glucose Lactic Acid Calcium Magnesium Total Bilirubin AST ALT Alkaline Phosphatase Troponin I High Sens Total Protein Albumin Globulin Albumin/Globulin Ratio Urine Color Urine Clarity Urine pH Ur Specific [place] Urine Protein Urine Glucose (UA) Urine Ketones Urine Occult Blood Urine Nitrite Urine Bilirubin Urine Urobilinogen Ur Leukocyte Esterase Urine RBC Urine WBC Ur Squamous Epith Cells Urine Bacteria Hyaline Casts Urine Mucus Urine Opiates Screen Urine Methadone Screen Ur Barbiturates Screen Ur Phencyclidine Scrn Ur Amphetamines Screen U Methamphetamin-MDMA U Benzodiazepines Scrn Urine Cocaine Screen U Cannabinoids Screen Ur Drug Screen Comment Ethyl Alcohol < 3.0 Radiography Diagnostic Testing: Clinical Impression(s) from Imaging Studies Chest X-Ray 07/21/21 21:45 IMPRESSION: Stable, nonacute portable x-ray examination of the chest. Electronically Signed: Haider Hunter MD ([place]) at 22:18 EST , Service support , Discharge Plan Triage Chief Complaint: Palpitations ED Provider: Chau Rivas Dx/Rx/DC Orders Primary Care Provider: Riddhi Cantrell
--- NOTE | 2021-07-21 21:42 | ED.RN ---
Holding Amiodorone until further directed by Dr. pompa. Cardioversion was successful.
[2021-07-21 21:43] LABS: Bacteria 0 SEEN /hpf (None Seen); Mucous, Urine 0 SEEN /hpf (<or=2+); Squamous Epithelial Cells - UA 0 SEEN /hpf (0-5)
[2021-07-21 21:45] LABS: Color, Urine Yellow (Yellow); Glucose, Dipstick Normal (Normal); Ketone-Dipstick Negative (Negative); Leukocyte Esterase-Dipstick Negative /ul (Negative); Nitrite-Dipstick Negative (Negative); Occult Blood-Urine 25 /ul (Negative); Protein-Dipstick 30 mg/dl (Negative); Specific Gravity, Urine 1.015 (1.002-1.030); Urine Bilirubin Dipstick Negative (Negative); Urine Clarity Clear (Clear); Urine Urobilinogen Normal (Normal)
--- NOTE | 2021-07-21 21:45 | RAD_ITS ---
STUDY: X-RAY CHEST REASON FOR EXAM: Male, 76 years old. weakness TECHNIQUE: AP COMPARISON: None. FINDINGS: Right hemidiaphragm is elevated. There is no demonstrated pleural abnormality. Normal size heart. Normal mediastinum and vibha. Normal visualized pulmonary arteries. There is atherosclerotic tortuosity of the aortic arch and descending thoracic aorta. Normal visualized thoracic spine. Normal visualized ribs, clavicles, and shoulders. There is no demonstrated abnormality of the visualized soft tissue structures of the upper abdomen. RAD/Chest 1 View (Portable) IMPRESSION: Stable, nonacute portable x-ray examination of the chest. Electronically Signed: Haider Hunter MD ([place]) at 22:18 EST , Service support ,
[2021-07-21 21:47] LABS: International Normalized Ratio 1.2; Partial Thromboplast Time 30.7 Seconds (24.1-36.2); Prothrombin Time (Protime)PT. 14.5 SECONDS (11.7-14.9)
[2021-07-21 21:55] LABS: ALB/GLOB Ratio 0.7 RATIO (0.9-2.4); AST(SGOT) 26 U/L (15-37); Alanine Aminotransfer ALT/SGPT 23 U/L (16-61); Albumin, Serum 3.1 g/dL (3.2-5.0); Alkaline Phosphatase 73 U/L (45-117); Anion Gap 10 (5-15); BUN 63 mg/dL (7-18); Calcium,Total 8.1 mg/dL (8.5-10.1); Chloride 113 mmol/L (98-107); Creatinine, Serum 3.71 mg/dL (0.70-1.30); EST Glomerular Filtration Rate 17 mL/min (>60); Est Glom Filt Rate - Afr Amer 21 mL/min (>60); Estimated Creatinine Clearance 19.39 ml/min; Globulin 4.2 g/dL (2.2-4.2); Glucose 189 mg/dL (74-106); Potassium 3.9 mmol/L (3.5-5.1); Protein, Total 7.3 g/dL (6.4-8.2); Sodium Level 141 mmol/L (136-145); Troponin-I HS 12 pg/mL (3.0-78.0)
[2021-07-21 22:19] LABS: Magnesium 1.4 mg/dL (1.6-2.6)
[2021-07-21 22:21] LABS: Hyaline Cast 0-5 SEEN /lpf (0-5); White Blood Cells 0-5 SEEN /hpf (0-5)
--- NOTE | 2021-07-21 22:21 | ED.RN ---
PT moved from bed 9 to bed 6 for closer observation at the nurses station. He was out of bed attempting to leave, left AC IV was lost.
[2021-07-21 22:23] LABS: Red Blood Cells-Urine 0-5 SEEN /hpf (0-5)
[2021-07-21 22:32] LABS: Amphetamine Urine VISTA NEGATIVE (<1000 ng/mL); Barbiturate Urine VISTA NEGATIVE (< 200 ng/mL); Benzodiazepine Urine VISTA NEGATIVE (< 200 ng/mL); Cocaine Urine VISTA NEGATIVE (< 300 ng/mL); Ecstacy Urine VISTA NEGATIVE (< 500 ng/mL); Methadone Urine VISTA NEGATIVE (< 300 ng/mL); PCP Urine VISTA NEGATIVE (< 25 ng/mL); THC Urine VISTA NEGATIVE (< 50 ng/mL); Vista UDS pH Range 5
[2021-07-21 23:28] VITALS: BP 93/68; PULSE 99; RESP 18; O2SAT 94
[2021-07-21] MEDS: Potassium Chloride Oral Tablet 20 MEQ 40 MEQ PO (23:30)
--- NOTE | 2021-07-21 23:36 | PCM.HP.STD ---
HPI - General General Date of Admission: 07/21/21 HPI Narrative PATSY CORONA, is a 76 M who lives at [facility] and with a significant medical history of hypertension; hyperlipidemia; diabetes mellitus; dementia with behavioral disturbance who was brought to the emergency department reportedly because of chest pain. History was taken for emergency department doctor because patient is confused and did not even know that he was at a hospital. At the emergent department patient was found to have ventricular tachycardia for which reason he was shocked. With shock his rhythm changed to sinus tachycardia. Emergent department doctor discussed the case with a field technical specialist who recommended that potassium and magnesium be optimized. [facility] Medical History Anemia Cognitive impairment Dementia HTN (hypertension) Hyperlipidemia Obesity Type 2 diabetes mellitus Home Medications atorvastatin 20 mg PO QHS 08/28/20 [History Last Taken 08/29/20] cimetidine 400 mg PO DAILY 08/28/20 [History Last Taken 08/30/20] diltiazem HCl 180 mg PO DAILY 08/28/20 [History Last Taken 08/30/20] ferrous sulfate 325 mg PO DAILY 08/28/20 [History Last Taken 08/30/20] memantine 5 mg PO BID 08/28/20 [History Last Taken 08/30/20] metformin 1,000 mg PO BID 08/28/20 [History Last Taken 08/30/20] nateglinide 120 mg PO TIDCM 08/28/20 [History Last Taken 08/30/20] quetiapine 75 mg PO BID 08/28/20 [History Last Taken 08/29/20] valsartan-hydrochlorothiazide 1 tab PO DAILY 08/28/20 [History Last Taken 08/29/20] acetaminophen 1,300 mg PO BID 08/30/20 [History Last Taken 08/30/20] lorazepam 0.5 mg PO BID 05/28/21 [History Last Taken Unknown] sertraline 50 mg PO DAILY 05/28/21 [History Last Taken Unknown] quetiapine 100 mg PO QHS 07/21/21 [History Last Taken Unknown] Allergy/AdvReac Type Severity Reaction Status Date / Time shellfish derived Allergy Unknown Verified 08/30/20 15:08 Family History unable to obtain unable to obtain Surgical History unable to obtain unable to obtain (Dementia) Social History Smoking Status: Unknown if ever smoked ROS Review of Systems ROS Unobtainable: due to mental condition Vital Signs Vital Signs Vital Signs: 07/21/21 20:55 07/21/21 21:08 07/21/21 21:14 Temperature 97.5 F L Temperature Source Oral Pulse Rate 158 H 159 H Respiratory Rate 16 18 Respiratory Effort Normal Blood Pressure 70/25 L 77/40 L Blood Pressure Mean 40 52 Pulse Ox 92 99 Oxygen Delivery Method Room Air Nasal Cannula Oxygen Flow Rate (L/min) 2 07/21/21 21:21 07/21/21 21:27 07/21/21 23:28 Temperature Temperature Source Pulse Rate 105 H 99 Respiratory Rate 18 Respiratory Effort Blood Pressure 62/32 L 124/77 H 93/68 Blood Pressure Mean 42 92 76 Pulse Ox 99 94 Oxygen Delivery Method Nasal Cannula Oxygen Flow Rate (L/min) 2 Weight Weight: 116.9 kg Body Mass Index (BMI) 33.0 Physical Exam Narrative Physical exam: General: Well-nourished, well-developed. Head: Normocephalic, atraumatic, no tenderness Eyes: PERRLA, EOMI ENT, no trauma, dry mucous membranes, no rhinorrhea Neck: Nontender, full range of motion, no spinal tenderness, deformities, step-off CVS: Regular rate and rhythm. S1-S2 present. No murmur, gallop or rub. Respiratory : clear to auscultation bilaterally, chest wall nontender, no wheezing Abdomen: Soft, nontender, nondistended, normal bowel sounds, no masses : Deferred Back: Nontender, no CVA tenderness, no midline spinal tenderness, deformities, step-offs Extremities: Nontender full range of motion, no trauma Skin: Bilateral leg with dryness; dark pigmentation of foods. Untrimmed toenails and valgus deviation of bilateral big toes. Neuro: Alert, oriented, cranial nerves II through XII grossly intact. Psychiatry: Normal mood. Normal affect. Not depressed. Not anxious. Results Lab / Micro Data Result Diagrams: 07/21/21 21:08 07/21/21 21:08 Labs: Laboratory Results - last 24 hr 07/21/21 21:08: WBC 8.4, RBC 3.94 L, Hgb 11.7 L, Hct 36.3 L, MCV 92.1, MCH 29.7, MCHC 32.2, RDW Std Deviation 44.6 H, RDW Coeff of Sanchez 13.2, Plt Count 251, MPV 9.7, Immature Gran % (Auto) 0.200, Neut % (Auto) 48.2, Lymph % (Auto) 29.9, [place] % (Auto) 16.0 H, Eos % (Auto) 5.1 H, Baso % (Auto) 0.6, Absolute Neuts (auto) 4.0, Absolute Lymphs (auto) 2.50, Nucleated RBC % 0 07/21/21 21:08: PT 14.5, INR 1.2, APTT 30.7, D-Dimer Quant (PE/DVT) 0.40 07/21/21 21:08: Sodium 141, Potassium 3.9, Chloride 113 H, Carbon Dioxide 18.0 L, Anion Gap 10, BUN 63 H, Creatinine 3.71 H, Estim Creat Clear Calc 19.39, Est GFR (MDRD) Af Amer 21 L, Est GFR (MDRD) Non-Af 17 L, BUN/Creatinine Ratio 17.0, Glucose 189 H, Calcium 8.1 L, Total Bilirubin 0.20, AST 26, ALT 23, Alkaline Phosphatase 73, Troponin I High Sens 12, Total Protein 7.3, Albumin 3.1 L, Globulin 4.2, Albumin/Globulin Ratio 0.7 L 07/21/21 21:08: Magnesium 1.4 L 07/21/21 21:35: Lactic Acid Cancelled 07/21/21 21:35: Ethyl Alcohol Cancelled 07/21/21 21:35: Urine Opiates Screen NEGATIVE, Urine Methadone Screen NEGATIVE, Ur Barbiturates Screen NEGATIVE, Ur Phencyclidine Scrn NEGATIVE, Ur Amphetamines Screen NEGATIVE, U Methamphetamin-MDMA NEGATIVE, U Benzodiazepines Scrn NEGATIVE, Urine Cocaine Screen NEGATIVE, U Cannabinoids Screen NEGATIVE, Ur Drug Screen Comment 07/21/21 21:35: Urine Color Yellow, Urine Clarity Clear, Urine pH 5.0, Ur Specific [place] 1.015, Urine Protein 30 H, Urine Glucose (UA) Normal, Urine Ketones Negative, Urine Occult Blood 25 H, Urine Nitrite Negative, Urine Bilirubin Negative, Urine Urobilinogen Normal, Ur Leukocyte Esterase Negative, Urine RBC 0-5 SEEN, Urine WBC 0-5 SEEN, Ur Squamous Epith Cells 0 SEEN, Urine Bacteria 0 SEEN, Hyaline Casts 0-5 SEEN, Urine Mucus 0 SEEN 07/21/21 22:15: Ethyl Alcohol Cancelled Micro: Microbiology 07/21/21 21:35 Nasal Secretion SARS-CoV-2 Antigen (Rapid) - Final Radiology Impression Chest X-Ray 07/21/21 21:45 IMPRESSION: Stable, nonacute portable x-ray examination of the chest. Electronically Signed: Haider Hunter MD ([place]) at 22:18 EST , Service support , Assessment & Plan Assessment/Plan (1) Ventricular tachycardia: (2) NIKUNJ (acute kidney injury): PLAN: Ventricular tachycardia Initial EKG at the emergency department was reviewed. EKG showed ventricular tachycardia. Patient was given IV fluid bolus and shock at the emergency department. After that shock his EKG revealed sinus tachycardia. Actual chest x-ray image was independently interpreted. Chest x-ray with no acute cardiopulmonary process. I agree with radiologist interpretation. BMP reviewed showed potassium of 3.9. Received potassium replacement at the emergency department. Magnesium of 1.4. Received magnesium replacement at the emergency department. Trend BMP and magnesium. Get echocardiogram. Cardiology consult. NIKUNJ on chronic kidney disease stage IIIa CKD Likely from Diabetic nephropathy Baseline creatinine of about 1.6 Creatinine on admission was 3.71 Avoid nephrotoxins. Home valsartan and hydrochlorothiazide held. Gentle IV hydration. Will get ultrasound of kidney and bladder. Urine electrolytes ordered. Trend BMP. Diabetes mellitus Patient with hyperglycemia on presentation Hold home Metformin. Nateglinide continued Accu-Chek QA [facility] with correction scale insulin ordered. Hypotension Initially patient was hypotensive in the ED and received normal saline bolus and was shocked. Hold home blood pressure medications. Trend blood pressures. Dementia with behavioral disturbance. Noted to attempting to leave the emergency department. Continue home psychotropic medications. Clinical monitoring. DVT prophylaxis: Subcutaneous heparin ordered. Charges/Coding Visit Charges Inpatient E&M: 14624 Init Hosp L3
[2021-07-21 23:52] LABS: Alcohol, Blood (Medical)-Serum < 3.0 mg/dL
[2021-07-22] VITALS (9 sets, daily range): BP systolic 104–131; BP diastolic 64–73; PULSE 88–101; RESP 14–18; TEMP 36.1–36.7; O2SAT 92–98; BMI 32.1
[2021-07-22] MEDS: Magnesium Sulfate 4gm/100mL 4 GM/100 ML IV.SOLN. IV (00:11)
[2021-07-22 00:34] LABS: Lactic Acid 3.5 mmol/L (0.4-1.9)
[2021-07-22] MEDS: 0.9% Normal Saline 1,000 ML 75 ML IV (00:39)
--- NOTE | 2021-07-22 00:40 | PCS.PANDOC ---
PANDEMIC DOCUMENTATION INITIATED: Date: 03/05/2021 Time: 190
--- NOTE | 2021-07-22 02:19 | NURSING ---
This RN called [facility] to ask the Nurse about the updated vaccinations of patient, and nurse was not around patient books to look up information. Nurse reports patient having flu shot and Covid vaccine, but unsure of date and which kind. Unable to chart vaccinations becaue of this.
[2021-07-22 03:30] LABS: Reflex Lactate? Y
[2021-07-22 04:18] LABS: Absolute Lymphocyte Count 1.81 X10^3/uL (0.83-4.51); Absolute Neutrophil Count 4.7 X10^3/uL (2.0-7.7); Basophil# 0.02 X10^3/uL; Basophil% 0.3 % (0-1); Eosinophil# 0.37 X10^3/uL; Eosinophils% 4.7 % (0-5); Hematocrit 33.7 % (40-54); Hemoglobin 10.8 g/dL (13.0-16.5); Lymphocyte # 1.81 X10^3/ul (0.83-4.51); Lymphocyte % 23.1 % (19-41); Mean Corpuscular Hgb 29.5 pg (27.0-32.0); Mean Corpuscular Volume 92.1 fL (80-94); Mean Platelet Vol. 9.2 fl (6.2-12.0); Monocyte# 0.96 X10^3/uL; Monocyte% 12.2 % (0-10); NRBC Flagged by Analyzer 0 % (0-5); Neutrophil # 4.66 X10^3/uL (2.7-7.7); Neutrophil % 59.3 % (47-70); Platelet Count 231 K/mm3 (150-450); RBC Distribution Width CV 13.2 % (11.6-14.6); RBC Distribution Width SD 45.1 fl (35.1-43.9); Red Blood Count 3.66 M/mm3 (4.6-6.2); White Blood Count 7.9 K/mm3 (4.4-11.0)
[2021-07-22 04:43] LABS: Anion Gap 5 (5-15); BUN 59 mg/dL (7-18); BUN/Creat Ratio 20.4 RATIO (10-20); Calcium,Total 7.9 mg/dL (8.5-10.1); Chloride 115 mmol/L (98-107); Creatinine, Serum 2.89 mg/dL (0.70-1.30); EST Glomerular Filtration Rate 23 mL/min (>60); Est Glom Filt Rate - Afr Amer 27 mL/min (>60); Estimated Creatinine Clearance 24.19 ml/min; Glucose 114 mg/dL (74-106); Potassium 3.9 mmol/L (3.5-5.1); Sodium Level 142 mmol/L (136-145)
[2021-07-22 04:45] LABS: Lactic Acid 2.2 mmol/L (0.4-1.9)
[2021-07-22 06:45] LABS: Bedside Glucose 106 mg/dL (70-110)
[2021-07-22] MEDS: QUEtiapine 25 MG Tablet 75 MG PO (08:59)
[2021-07-22] MEDS: Pantoprazole Sodium 20 MG Tablet PO (08:59)
[2021-07-22] MEDS: dilTIAZem CD 180 MG Capsule PO (09:00)
[2021-07-22] MEDS: Sertraline 50 MG Tablet PO (09:00)
[2021-07-22] MEDS: Ferrous Sulfate 325 MG Tablet PO (09:00)
[2021-07-22] MEDS: Heparin Injection (Vial) 5,000 UNIT/ML VIAL 5000 UNIT SC (09:00)
[2021-07-22] MEDS: Memantine Hydrochloride 5 MG Tablet PO (09:00)
[2021-07-22] MEDS: LORazepam 0.5 MG Tablet PO (09:11)
[2021-07-22 11:30] LABS: Bedside Glucose 128 mg/dL (70-110)
--- NOTE | 2021-07-22 15:09 | NURSING ---
Ok per nurse Rian Guo for patient to return back to [place] today.
--- NOTE | 2021-07-22 15:28 | PCM.DC ---
Discharge Instructions Diet Discharge Diet: 1800 Calorie Control Diet Activity Discharge Activity: Return to Normal Activity Weight Bearing Status: Full weight bearing Follow Up Care Test Results: Test results from this visit will be discussed in further detail at your follow-up appointment, if applicable. Discharge Plan Admission Admit Date/Time: 07/21/21 23:28 Primary Reason for Your Visit: ventricular tacycardia Attending Provider: Bryan Mesa Primary Care Provider: Riddhi Cantrell Consulting Providers: Toyin Benoit Instructions Additional Instructions / Restrictions: get BMP done in 2 days Discharge Orders/Prescriptions Prescriptions: New metoprolol succinate [Toprol XL] 25 mg tablet extended release 24 hr 25 mg PO DAILY Qty: 30 RF: 0 Continued quetiapine 25 MG tablet 75 mg PO BID RF: 0 nateglinide 120 MG tablet 120 mg PO TIDCM RF: 0 atorvastatin 20 MG tablet 20 mg PO QHS RF: 0 diltiazem HCl 180 MG capsule,extended release 24hr 180 mg PO DAILY RF: 0 cimetidine 400 MG tablet 400 mg PO DAILY RF: 0 ferrous sulfate 325 MG tablet 325 mg PO DAILY RF: 0 metformin 1,000 MG tablet 1,000 mg PO BID RF: 0 memantine 5 MG tablet 5 mg PO BID RF: 0 acetaminophen 650 MG tablet extended release 1,300 mg PO BID RF: 0 lorazepam 0.5 mg Tablet 0.5 mg PO BID RF: 0 sertraline 50 mg Tablet 50 mg PO DAILY RF: 0 quetiapine 100 mg Tablet 100 mg PO QHS RF: 0 Changed valsartan-hydrochlorothiazide 1 EACH tablet 0.5 tab PO DAILY Qty: 0 RF: 0 Referrals / Follow Up: Riddhi Cantrell MD [Primary Care Provider] - Within 2 Weeks Disposition Disposition (needs filled in before D/C Order can be placed): Assisted Living
[2021-07-22] MEDS: Metoprolol(XL)Succ 25 MG Tablet PO (15:38)
--- NOTE | 2021-07-22 15:46 | PCM.CONS.C ---
HPI Consult Data Date of Consult: 07/22/21 HPI Narrative HPI Narrative: PATSY CORONA, is a 76 M who presents to ER with chest pain .Per ER attending notes : Patient presenting with chest pain. He is a poor informant and unable give much history. His EKG on my interpretation shows a wide-complex tachycardia at a rate of 159 bpm concerning for V. tach. Patient is hypotensive. Pacer pads were placed on his chest and he was cardioverted using 150 J synchronized. After this his blood pressure did improve to 124/77 heart rate down to 105. EKG obtained shows a sinus tachycardia with first-degree AV block at a rate of 101 bpm. AL interval 210 ms, QRS duration 90 ms, QTC 438 ms. CBC shows no leukocytosis and his hemoglobin is stable at 11.7. His creatinine had increased to 3.7. He was given IV fluids. Chest x-ray my interpretation shows no acute cardiopulmonary process and radiologist does agree. Since the patient was altered when he initially arrived I did obtain alcohol and a urine drug screen which were both negative. D-dimer is negative. Magnesium is low at 1.4 and this was replaced with 4 g of IV magnesium. I did speak with Dr. Benoit who recommended anything less than to be given magnesium. Also on any potassium less than 4 to be given potassium. This was done because his potassium was 3.9. He was given 4 mEq p.o. High-sensitivity troponin was 12. Patient remained stable after he was cardioverted. He was much improved and actually very friendly. He tried to actually leave the emergency room and at 1 point ripped out his IV incidentally. Patient discussed with hospitalist for admission. Patient is not a to provide any meaningful history because of his dementia. Yesterday when patient presented, the EKG was sent to me by the ER MD. I reviewed it, and I was told that patient was hypotensive and symptomatic with it. Given patient's age of 76 and his risk factors, I said we would have to assume that this is ventricular tachycardia until proven otherwise. As such I recommended electrical cardioversion. The ER MD cardioverted patient to sinus rhythm with 150 J. Patient's blood pressure improved improved and his chest discomfort resolved. Since then he has not had any more tachydysrhythmia. Today he is ripping out his IVs, and there is blood over the floor. Does not appear to be in any type of distress. He is able to ambulate without difficulty. His lungs are clear heart sounds are regular without murmur rub or gallop there is no jugular venous distention no carotid bruit abdomen is soft and extremities show no edema. No gross cranial nerve deficits. Cardiac risk factors include hypertension dyslipidemia diabetes age and male sex. There is also documented history of iron deficiency anemia. Prior EKGs have shown first-degree AV block with AL interval of 210 ms EKG on presentation shows wide-complex tachycardia with right bundle branch block, ventricular rate is about 156 bpm, I was unable to appreciate any flutter waves. EKG post cardioversion shows sinus rhythm first-degree AV block low voltage no diagnostic ST-T abnormalities as compared to previous EKGs that are available in the chart. Laboratory data show BUN of 63 creatinine 3.71 GFR 29, today after hydration BUN 42 creatinine 2.32. Lactic acid 3.5. Patient had been on Metformin and Diovan/hydrochlorothiazide. Creatinine in August 2020 was 1.5. Potassium was normal. Laboratory data reviewed. Discussed with hospitalist service. Hospitalist discussed with patient's son who is his medical power of emergency services dispatcher. We are all agreeing to a conservative management strategy. Assessment: 1. Sustained wide-complex tachycardia, presumed to be sustained ventricular tachycardia that is monomorphic 2. No recurrence of tachydysrhythmia after cardioversion 3. Given patient's age and risk factors, would have to assume that the wide-complex tachycardia is ventricular tachycardia. It has a right bundle branch block morphology and a superior axis. 4. Patient has underlying borderline first-degree AV block 5. Acute on chronic kidney injury. 6. Chest discomfort is related to the tachydysrhythmia. 7. CAD is probable given risk factors. 8. Dementia Recommendations: 1. I agree with conservative approach care given patient's severe dementia. 2. I contemplated starting amiodarone empirically, but this is a high risk of medication, hence decided to hold off unless tacky dysrhythmia recurs. 3. We are not planning further work-up for CAD or structural heart disease at this time. 4. CODE STATUS should be addressed if not already done 5. If patient stays in-house, would do echocardiogram. If there is LV systolic dysfunction, were not switch from Cardizem to metoprolol 6. Not opposed to patient being discharged today if no more dysrhythmias. 7. I would discontinue the hydrochlorothiazide, and would hold off on Diovan for now, follow renal function, and once it returns to baseline, patient may be restarted on a lower dose of Diovan for blood pressure management. Thank you for allowing me to participate in this patient's care, please do not hesitate to call if further questions arise, Sincerely, Toyin Benoit MD [facility] Medical History Anemia Cognitive impairment Dementia HTN (hypertension) Hyperlipidemia Obesity Type 2 diabetes mellitus Home Medications atorvastatin 20 mg PO QHS 08/28/20 [History Last Taken 08/29/20] cimetidine 400 mg PO DAILY 08/28/20 [History Last Taken 08/30/20] diltiazem HCl 180 mg PO DAILY 08/28/20 [History Last Taken 08/30/20] ferrous sulfate 325 mg PO DAILY 08/28/20 [History Last Taken 08/30/20] memantine 5 mg PO BID 08/28/20 [History Last Taken 08/30/20] metformin 1,000 mg PO BID 08/28/20 [History Last Taken 08/30/20] nateglinide 120 mg PO TIDCM 08/28/20 [History Last Taken 08/30/20] quetiapine 75 mg PO BID 08/28/20 [History Last Taken 08/29/20] acetaminophen 1,300 mg PO BID 08/30/20 [History Last Taken 08/30/20] lorazepam 0.5 mg PO BID 05/28/21 [History Last Taken Unknown] sertraline 50 mg PO DAILY 05/28/21 [History Last Taken Unknown] quetiapine 100 mg PO QHS 07/21/21 [History Last Taken Unknown] metoprolol succinate [Toprol XL] 25 mg PO DAILY #30 tab 07/22/21 [Rx Last Taken Unknown] valsartan-hydrochlorothiazide 0.5 tab PO DAILY #0 tab 07/22/21 [Rx Last Taken 08/29/20] Allergy/AdvReac Type Severity Reaction Status Date / Time shellfish derived Allergy Unknown Verified 08/30/20 15:08 Family History unable to obtain Surgical History unable to obtain Social History Smoking Status: Unknown if ever smoked Risk Stratification Risk Stratification Applicable: Yes Age >/= 65: Yes >/= 3 CAD Risk Factors (HTN, HLD, DM, family hx of CAD, or current smoker): No Aspirin Use in the Past 7 Days: No Severe Angina (>/= episodes in 24 hours): Yes EKG ST Changes >/= 0.5mm: No Positive Cardiac Marker: No VIANEY Risk Stratification Score: 2 VIANEY % Risk: 8% Risk Objective Data Vital Signs: Vital Signs Temp Pulse Resp BP Pulse Ox 97.9 F 90 16 108/64 94 07/22/21 15:45 07/22/21 15:45 07/22/21 15:45 07/22/21 15:45 07/22/21 15:45 Oxygen Flow Rate (L/min) 2 Oxygen Delivery Method Room Air Weight: 243 lb 2.718 oz Body Mass Index (BMI) 32.1 Intake & Output: Intake and Output for Last 24 Hours 07/20/21 07/21/21 07/22/21 23:59 23:59 23:59 Intake Total 1000 / 1000 1094.58 / 1094.58 Balance 1000 / 1000 1094.58 / 1094.58 Lab / Micro Data Result Diagrams: 07/22/21 04:10 07/22/21 04:10 Labs: Laboratory Results - last 24 hr 07/21/21 21:08: WBC 8.4, RBC 3.94 L, Hgb 11.7 L, Hct 36.3 L, MCV 92.1, MCH 29.7, MCHC 32.2, RDW Std Deviation 44.6 H, RDW Coeff of Sanchez 13.2, Plt Count 251, MPV 9.7, Immature Gran % (Auto) 0.200, Neut % (Auto) 48.2, Lymph % (Auto) 29.9, [place] % (Auto) 16.0 H, Eos % (Auto) 5.1 H, Baso % (Auto) 0.6, Absolute Neuts (auto) 4.0, Absolute Lymphs (auto) 2.50, Nucleated RBC % 0 07/21/21 21:08: PT 14.5, INR 1.2, APTT 30.7, D-Dimer Quant (PE/DVT) 0.40 07/21/21 21:08: Sodium 141, Potassium 3.9, Chloride 113 H, Carbon Dioxide 18.0 L, Anion Gap 10, BUN 63 H, Creatinine 3.71 H, Estim Creat Clear Calc 19.39, Est GFR (MDRD) Af Amer 21 L, Est GFR (MDRD) Non-Af 17 L, BUN/Creatinine Ratio 17.0, Glucose 189 H, Calcium 8.1 L, Total Bilirubin 0.20, AST 26, ALT 23, Alkaline Phosphatase 73, Troponin I High Sens 12, Total Protein 7.3, Albumin 3.1 L, Globulin 4.2, Albumin/Globulin Ratio 0.7 L 07/21/21 21:08: Magnesium 1.4 L 07/21/21 21:35: Lactic Acid Cancelled 07/21/21 21:35: Ethyl Alcohol Cancelled 07/21/21 21:35: Urine Opiates Screen NEGATIVE, Urine Methadone Screen NEGATIVE, Ur Barbiturates Screen NEGATIVE, Ur Phencyclidine Scrn NEGATIVE, Ur Amphetamines Screen NEGATIVE, U Methamphetamin-MDMA NEGATIVE, U Benzodiazepines Scrn NEGATIVE, Urine Cocaine Screen NEGATIVE, U Cannabinoids Screen NEGATIVE, Ur Drug Screen Comment 07/21/21 21:35: Urine Color Yellow, Urine Clarity Clear, Urine pH 5.0, Ur Specific [place] 1.015, Urine Protein 30 H, Urine Glucose (UA) Normal, Urine Ketones Negative, Urine Occult Blood 25 H, Urine Nitrite Negative, Urine Bilirubin Negative, Urine Urobilinogen Normal, Ur Leukocyte Esterase Negative, Urine RBC 0-5 SEEN, Urine WBC 0-5 SEEN, Ur Squamous Epith Cells 0 SEEN, Urine Bacteria 0 SEEN, Hyaline Casts 0-5 SEEN, Urine Mucus 0 SEEN 07/21/21 22:15: Ethyl Alcohol Cancelled 07/21/21 23:21: Ethyl Alcohol < 3.0 07/21/21 23:21: Lactic Acid 3.5 H* 07/22/21 04:10: WBC 7.9, RBC 3.66 L, Hgb 10.8 L, Hct 33.7 L, MCV 92.1, MCH 29.5, MCHC 32.0, RDW Std Deviation 45.1 H, RDW Coeff of Sanchez 13.2, Plt Count 231, MPV 9.2, Immature Gran % (Auto) 0.400, Neut % (Auto) 59.3, Lymph % (Auto) 23.1, [place] % (Auto) 12.2 H, Eos % (Auto) 4.7, Baso % (Auto) 0.3, Absolute Neuts (auto) 4.7, Absolute Lymphs (auto) 1.81, Nucleated RBC % 0 07/22/21 04:10: Sodium 142, Potassium 3.9, Chloride 115 H, Carbon Dioxide 22.0, Anion Gap 5, BUN 59 H, Creatinine 2.89 H, Estim Creat Clear Calc 24.19, Est GFR (MDRD) Af Amer 27 L, Est GFR (MDRD) Non-Af 23 L, BUN/Creatinine Ratio 20.4 H, Glucose 114 H, Calcium 7.9 L 07/22/21 04:10: Lactic Acid 2.2 H* 07/22/21 06:30: POC Glucose 106 07/22/21 11:10: POC Glucose 128 H Micro: Microbiology 07/21/21 21:35 Nasal Secretion SARS-CoV-2 Antigen (Rapid) - Final Cardiology Labs/Tests 07/21/21 21:08: WBC 8.4, RBC 3.94 L, Hgb 11.7 L, Hct 36.3 L, MCV 92.1, MCH 29.7, MCHC 32.2, Plt Count 251, MPV 9.7, Immature Gran % (Auto) 0.200, Neut % (Auto) 48.2, Lymph % (Auto) 29.9, [place] % (Auto) 16.0 H, Eos % (Auto) 5.1 H, Baso % (Auto) 0.6, Absolute Neuts (auto) 4.0, Nucleated RBC % 0 07/21/21 21:08: PT 14.5, INR 1.2, APTT 30.7, D-Dimer Quant (PE/DVT) 0.40 07/21/21 21:08: Sodium 141, Potassium 3.9, Chloride 113 H, Carbon Dioxide 18.0 L, Anion Gap 10, BUN 63 H, Creatinine 3.71 H, Est GFR (MDRD) Af Amer 21 L, Est GFR (MDRD) Non-Af 17 L, BUN/Creatinine Ratio 17.0, Glucose 189 H, Calcium 8.1 L, Total Bilirubin 0.20 07/21/21 21:08: Magnesium 1.4 L 07/21/21 21:35: Lactic Acid Cancelled 07/21/21 21:35: Urine Color Yellow, Urine Clarity Clear, Urine pH 5.0, Ur Specific [place] 1.015, Urine Protein 30 H, Urine Glucose (UA) Normal, Urine Ketones Negative, Urine Occult Blood 25 H, Urine Nitrite Negative, Urine Bilirubin Negative, Urine Urobilinogen Normal, Ur Leukocyte Esterase Negative, Urine RBC 0-5 SEEN, Urine WBC 0-5 SEEN 07/21/21 23:21: Lactic Acid 3.5 H* 07/22/21 04:10: WBC 7.9, RBC 3.66 L, Hgb 10.8 L, Hct 33.7 L, MCV 92.1, MCH 29.5, MCHC 32.0, Plt Count 231, MPV 9.2, Immature Gran % (Auto) 0.400, Neut % (Auto) 59.3, Lymph % (Auto) 23.1, [place] % (Auto) 12.2 H, Eos % (Auto) 4.7, Baso % (Auto) 0.3, Absolute Neuts (auto) 4.7, Nucleated RBC % 0 07/22/21 04:10: Sodium 142, Potassium 3.9, Chloride 115 H, Carbon Dioxide 22.0, Anion Gap 5, BUN 59 H, Creatinine 2.89 H, Est GFR (MDRD) Af Amer 27 L, Est GFR (MDRD) Non-Af 23 L, BUN/Creatinine Ratio 20.4 H, Glucose 114 H, Calcium 7.9 L 07/22/21 04:10: Lactic Acid 2.2 H* Rhythm: EKG: ECHO: Stress Test: Cardiac Cath: PCI: CT Surgery: Holter monitor: EPS: PPM: CXR: Chest CT Scan: Radiography Diagnostic Testing: Radiology Impression Chest X-Ray 07/21/21 21:45 IMPRESSION: Stable, nonacute portable x-ray examination of the chest. Electronically Signed: Haider Hunter MD ([place]) at 22:18 EST , Service support ,
--- NOTE | 2021-07-22 18:52 | DS.PCM_ITS ---
Providers Date of Admission: 07/21/21 Date of Discharge: 07/22/21 Primary Care Physician: Dr. Riddhi Cantrell MD Consultations 07/22/21 00:16 Consult: Cardiology Routine Consulting Provider: Toyin Benoit Reason for Consult: Wide complex tachycardia EMERGENT Consult: No MD Notified: Yes Date Notified: 07/21/21 Time Notified: 23:33 Method of Notification: Verbal Comments:: ED doc spoke with cardio Reason For Visit: WIDE COMPLEX TACHYCARDIA, NIKUNJ Diagnosis Discharge Diagnosis (1) Ventricular tachycardia: Status: Acute Code(s): I47.2 - Ventricular tachycardia (2) NIKUNJ (acute kidney injury): Status: Acute Code(s): N17.9 - Acute kidney failure, unspecified Plan: 1. Sustained ventricular tachycardia #2 type 2 diabetes #3 Alzheimer's dementia #4 chronic kidney disease stage IIIb secondary to type 2 diabetes #5 essential hypertension #6 iron deficiency anemia #7 lactic acidosis-etiology unclear Medications at Discharge Home Medications atorvastatin 20 mg PO QHS 08/28/20 cimetidine 400 mg PO DAILY 08/28/20 diltiazem HCl 180 mg PO DAILY 08/28/20 ferrous sulfate 325 mg PO DAILY 08/28/20 memantine 5 mg PO BID 08/28/20 metformin 1,000 mg PO BID 08/28/20 nateglinide 120 mg PO TIDCM 08/28/20 quetiapine 75 mg PO BID 08/28/20 acetaminophen 1,300 mg PO BID 08/30/20 lorazepam 0.5 mg PO BID 05/28/21 sertraline 50 mg PO DAILY 05/28/21 quetiapine 100 mg PO QHS 07/21/21 metoprolol succinate [Toprol XL] 25 mg PO DAILY #30 tab 07/22/21 valsartan-hydrochlorothiazide 0.5 tab PO DAILY #0 tab 07/22/21 Hospital Course Operations None Procedures None Summary of Care Provided Minutes Spent on Discharge: 32 Hospital Course: 76-year-old black male was seen in the emergency room at [facility] after being brought in from a local assisted living memory care unit with possible chest pain, he had been pointing to his chest but due to his dementia, he was not able to give a cognizant story of what he was complaining of. Labs were obtained on the patient, CBC was remarkable for hemoglobin of 11.7, chemistry panel was remarkable for creatinine of 3.71 and a BUN of 63. Patient's glucose was 189 , lactic acid was elevated, chest x-ray showed no acute pulmonary disease. Patient was admitted to PCU, patient was given IV fluids, labs were monitored, and he was seen in consultation by cardiology. I had a discussion with the patient's son who is the patient's POA, he requested no further testing be performed on the patient and felt that the patient could go back to assisted living with medical treatment only. Cardiology felt that this was also the best course of treatment. Patient's creatinine improved during his hospital stay. On 07/22/2021, patient was seen and examined: On examination he appeared his stated age, he appeared confused. Vital signs as documented. Skin warm and dry and without overt rashes. Neck without JVD, neck was supple, trachea midline, thyroid was normal. Lungs clear bilaterally, normal air movement was noted. Heart exam notable for regular rhythm, normal sounds and absence of murmurs, rubs or gallops. Abdomen unremarkable and without evidence of organomegaly, masses, or abdominal aortic enlargement. Bowel sounds are present, abdomen is not distended. Extremities nonedematous, no cyanosis was noted, no clubbing was noted. Neuro: Cranial nerves II through XII are grossly intact, no focal motor deficits were noted, sensation to light touch and pinprick intact, motor exam 5/5 throughout. Psych: Patient is confused, he appears in no distress, he is n ot agitated Patient appears stable for discharge back to assisted living on 07/22/2021. Weight / BMI Weight Weight: 110.3 kg Body Mass Index (BMI) 32.1 ABG / Lab / Microbiology Data Result Diagrams: 07/22/21 04:10 07/22/21 04:10 Laboratory: Laboratory Results - last 24 hr 07/21/21 21:08: WBC 8.4, RBC 3.94 L, Hgb 11.7 L, Hct 36.3 L, MCV 92.1, MCH 29.7, MCHC 32.2, RDW Std Deviation 44.6 H, RDW Coeff of Sanchez 13.2, Plt Count 251, MPV 9.7, Immature Gran % (Auto) 0.200, Neut % (Auto) 48.2, Lymph % (Auto) 29.9, [place] % (Auto) 16.0 H, Eos % (Auto) 5.1 H, Baso % (Auto) 0.6, Absolute Neuts (auto) 4.0, Absolute Lymphs (auto) 2.50, Nucleated RBC % 0 07/21/21 21:08: PT 14.5, INR 1.2, APTT 30.7, D-Dimer Quant (PE/DVT) 0.40 07/21/21 21:08: Sodium 141, Potassium 3.9, Chloride 113 H, Carbon Dioxide 18.0 L , Anion Gap 10, BUN 63 H, Creatinine 3.71 H, Estim Creat Clear Calc 19.39, Est GFR (MDRD) Af Amer 21 L, Est GFR (MDRD) Non-Af 17 L, BUN/Creatinine Ratio 17.0, Glucose 189 H, Calcium 8.1 L, Total Bilirubin 0.20, AST 26, ALT 23, Alkaline P hosphatase 73, Troponin I High Sens 12, Total Protein 7.3, Albumin 3.1 L, Teresita bulin 4.2, Albumin/Globulin Ratio 0.7 L 07/21/21 21:08: Magnesium 1.4 L 07/21/21 21:35: Lactic Acid Cancelled 07/21/21 21:35: Ethyl Alcohol Cancelled 07/21/21 21:35: Urine Opiates Screen NEGATIVE, Urine Methadone Screen NEGATIVE, Ur Barbiturates Screen NEGATIVE, Ur Phencyclidine Scrn NEGATIVE, Ur Amphetamines Screen NEGATIVE, U Methamphetamin-MDMA NEGATIVE, U Benzodiazepines Scrn NEGATIVE, Urine Cocaine Screen NEGATIVE, U Cannabinoids Screen NEGATIVE, Ur Drug Screen Comment 07/21/21 21:35: Urine Color Yellow, Urine Clarity Clear, Urine pH 5.0, Ur Specific [place] 1.015, Urine Protein 30 H, Urine Glucose (UA) Normal, Urine Ketones Negative, Urine Occult Blood 25 H, Urine Nitrite Negative, Urine Bilirubin Negative, Urine Urobilinogen Normal, Ur Leukocyte Esterase Negative, Urine RBC 0-5 SEEN, Urine WBC 0-5 SEEN, Ur Squamous Epith Cells 0 SEEN, Urine Bacteria 0 SEEN, Hyaline Casts 0-5 SEEN, Urine Mucus 0 SEEN 07/21/21 22:15: Ethyl Alcohol Cancelled 07/21/21 23:21: Ethyl Alcohol < 3.0 07/21/21 23:21: Lactic Acid 3.5 H* 07/22/21 04:10: WBC 7.9, RBC 3.66 L, Hgb 10.8 L, Hct 33.7 L, MCV 92.1, MCH 29.5, MCHC 32.0, RDW Std Deviation 45.1 H, RDW Coeff of Sanchez 13.2, Plt Count 231, MPV 9.2, Immature Gran % (Auto) 0.400, Neut % (Auto) 59.3, Lymph % (Auto) 23.1, [place] % (Auto) 12.2 H, Eos % (Auto) 4.7, Baso % (Auto) 0.3, Absolute Neuts (auto) 4.7, Absolute Lymphs (auto) 1.81, Nucleated RBC % 0 07/22/21 04:10: Sodium 142, Potassium 3.9, Chloride 115 H, Carbon Dioxide 22.0, Anion Gap 5, BUN 59 H, Creatinine 2.89 H, Estim Creat Clear Calc 24.19, Est GFR (MDRD) Af Amer 27 L, Est GFR (MDRD) Non-Af 23 L, BUN/Creatinine Ratio 20.4 H, Glucose 114 H, Calcium 7.9 L 07/22/21 04:10: Lactic Acid 2.2 H* 07/22/21 06:30: POC Glucose 106 07/22/21 11:10: POC Glucose 128 H Microbiology: Microbiology 07/21/21 21:35 Nasal Secretion SARS-CoV-2 Antigen (Rapid) - Final Radiography Diagnostic Testing: Radiology Impression Chest X-Ray 07/21/21 21:45 IMPRESSION: Stable, nonacute portable x-ray examination of the chest. Electronically Signed: Haider Hunter MD (Brooks) at 22:18 EST , Service support , D/C Instructions Discharge Diet: 1800 Calorie Control Diet Weight Bearing Status: Full weight bearing Meaningful Use Info Meaningful Use Diagnoses (Choose all that apply): None applicable Discharge Plan Admission Admit Date/Time: 07/21/21 23:28 Primary Reason for Your Visit: ventricular tacycardia Attending Provider: Bryan Mesa Primary Care Provider: Riddhi Cantrell Consulting Providers: Toyin Benoit Instructions Additional Instructions / Restrictions: get BMP done in 2 days Discharge Orders/Prescriptions Prescriptions: New metoprolol succinate [Toprol XL] 25 mg tablet extended release 24 hr 25 mg PO DAILY Qty: 30 RF: 0 Continued quetiapine 25 MG tablet 75 mg PO BID RF: 0 nateglinide 120 MG tablet 120 mg PO TIDCM RF: 0 atorvastatin 20 MG tablet 20 mg PO QHS RF: 0 diltiazem HCl 180 MG capsule,extended release 24hr 180 mg PO DAILY RF: 0 cimetidine 400 MG tablet 400 mg PO DAILY RF: 0 ferrous sulfate 325 MG tablet 325 mg PO DAILY RF: 0 metformin 1,000 MG tablet 1,000 mg PO BID RF: 0 memantine 5 MG tablet 5 mg PO BID RF: 0 acetaminophen 650 MG tablet extended release 1,300 mg PO BID RF: 0 lorazepam 0.5 mg Tablet 0.5 mg PO BID RF: 0 sertraline 50 mg Tablet 50 mg PO DAILY RF: 0 quetiapine 100 mg Tablet 100 mg PO QHS RF: 0 Changed valsartan-hydrochlorothiazide 1 EACH tablet 0.5 tab PO DAILY Qty: 0 RF: 0 Referrals / Follow Up: Riddhi Cantrell MD [Primary Care Provider] - Within 2 Weeks Disposition Disposition (needs filled in before D/C Order can be placed): Assisted Living Charges/Coding Visit Charges Inpatient E&M: 75357 Disch Hosp
== END 2021-07-22 16:31 | disposition home or self-care (01) | DRG 309 ==
LOC: ED 21:45 → PCU 07-22 00:10
PROVIDERS: Admitting Provider Hospitalist; Emergency Provider Student in an Organized Health Care Education/Training Program; PCP Family Medicine; Visit Provider Internal Medicine
DX: I47.2 Ventricular tachycardia (principal); N17.9 Acute kidney failure, unspecified; E87.2 Acidosis; F02.81 Dementia in other diseases classified elsewhere, unspecified severity, with behavioral disturbance; I44.0 Atrioventricular block, first degree; E78.5 Hyperlipidemia, unspecified; E66.9 Obesity, unspecified; Z68.33 Body mass index [BMI] 33.0-33.9, adult; E11.65 Type 2 diabetes mellitus with hyperglycemia; I12.9 Hypertensive chronic kidney disease with stage 1 through stage 4 chronic kidney disease, or unspecified chronic kidney disease; E11.22 Type 2 diabetes mellitus with diabetic chronic kidney disease; N18.31 Chronic kidney disease, stage 3a; I95.9 Hypotension, unspecified; D50.9 Iron deficiency anemia, unspecified; G30.9 Alzheimer's disease, unspecified; Z79.84 Long term (current) use of oral hypoglycemic drugs; Z79.899 Other long term (current) drug therapy
CPT/HCPCS: 36415; 36591; 71045; 80048; 80053; 80307; 81001; 82077; 82962; 83605; 83735; 84484; 85025; 85379; 85610; 85730; 87040; 87086; 87426; 93005; 99285; J7030; A4216

== ENCOUNTER → 2021-07-24 | Outpatient (REF) | payer MEDICARE, SELFPAY | END | disposition home or self-care (01) | LOC: OLS.BROOKB 05:00 | PROVIDERS: PCP Family Medicine; Visit Provider Family Medicine | DX: Z00.00 Encounter for general adult medical examination without abnormal findings (principal) ==

== ENCOUNTER 2021-07-25 04:00 | Outpatient (REF) | payer SELFPAY ==
[2021-07-25 10:01] LABS: Anion Gap 6 (5-15); BUN 42 mg/dL (7-18); BUN/Creat Ratio 20.6 RATIO (10-20); Calcium,Total 8.4 mg/dL (8.5-10.1); Chloride 111 mmol/L (98-107); Creatinine, Serum 2.04 mg/dL (0.70-1.30); EST Glomerular Filtration Rate 34 mL/min (>60); Est Glom Filt Rate - Afr Amer 41 mL/min (>60); Glucose 81 mg/dL (74-106); Potassium 4.3 mmol/L (3.5-5.1); Sodium Level 142 mmol/L (136-145)
== END 2021-07-25 23:59 | disposition home or self-care (01) ==
LOC: OLS.BROOKB 04:00
PROVIDERS: PCP Family Medicine; Referring Provider Family Medicine; Visit Provider Family Medicine
DX: E11.9 Type 2 diabetes mellitus without complications (principal); I10 Essential (primary) hypertension; E78.5 Hyperlipidemia, unspecified
CPT/HCPCS: 36415; 80048

== ENCOUNTER 2021-09-01 09:09 | Inpatient (IN) | payer MEDICARE, SELFPAY ==
[2021-09-01] VITALS (33 sets, daily range): BP systolic 67–154; BP diastolic 31–96; PULSE 102–151; RESP 12–22; TEMP 36.3–37.1; O2SAT 94–100; BMI 30.5
--- NOTE | 2021-09-01 09:14 | EKG12_ITS ---
Test Reason : FALL Blood Pressure : / mmHG Vent. Rate : 145 BPM Atrial Rate : 138 BPM P-R Int : 000 ms QRS Dur : 160 ms QT Int : 364 ms P-R-T Axes : 000 207 015 degrees QTc Int : 565 ms Wide QRS tachycardia : Consider atrial flutter with 2:1 AV block Right bundle branch block Abnormal ECG Confirmed by POLLY MASON, BRITTANY ([id number]), editor book ZOYA EASTMAN ([id number]) on 09/04/2021 10:26:22 AM Referred By: MASOUD Confirmed By:BRITTANY MATIAS MD
--- NOTE | 2021-09-01 09:14 | RAD_ITS ---
STUDY: X-RAY CHEST REASON FOR EXAM: Male, 76 years old. Chest pain. TECHNIQUE: Single AP portable view of the chest. COMPARISON: 07/21/2021. FINDINGS: Persistent mild elevation of right hemidiaphragm. Mild atelectasis or scarring in the right lung base. No focal infiltrate is seen. There is no demonstrated pleural abnormality. Normal size heart. Normal mediastinum and vibha. Normal visualized pulmonary arteries. There is atherosclerotic tortuosity of the aortic arch and descending thoracic aorta. Stable soft tissues and osseous structures. Normal visualized ribs, clavicles, and shoulders. There is no demonstrated abnormality of the visualized soft tissue structures of the upper abdomen. RAD/Chest 1 View (Portable) IMPRESSION: No significant change. No new infiltrate is seen. Electronically Signed: Messi Browne, at 10:29 EST ,
--- NOTE | 2021-09-01 09:21 | EX.ED.DYSGE1 ---
HPI History of Present Illness Chief Complaint: Syncope Detail of Chief Complaint: Fall at a senior living with no loss of consciousness. Informant: patient, EMS and SNF Limited: dementia Onset/Context/Timing Onset: Today Context: Sudden Onset Current Severity: Mild Maximum Severity: Mild Narrative Narrative: 76-year-old male from a local senior living. Who is a very limited informant due to his dementia. He also has a history of diabetes, anemia, hypertension and renal insufficiency. Reportedly fell today at the senior living. He really cannot tell me any history around that. We are contacting the extended care facility for further information. He denies any illness. Prior similar symptoms: Yes Recent Illness/Hospitalization: No PFSH PFS Medical History Anemia Cognitive impairment Dementia HTN (hypertension) Hyperlipidemia Obesity Type 2 diabetes mellitus Home Medications atorvastatin 20 mg PO QHS 08/28/20 [History Last Taken 08/29/20] diltiazem HCl 180 mg PO DAILY 08/28/20 [History Last Taken 08/30/20] ferrous sulfate 325 mg PO DAILY 08/28/20 [History Last Taken 08/30/20] memantine 5 mg PO BID 08/28/20 [History Last Taken 08/30/20] metformin 1,000 mg PO BID 08/28/20 [History Last Taken 08/30/20] nateglinide 120 mg PO TIDCM 08/28/20 [History Last Taken 08/30/20] quetiapine 75 mg PO BID 08/28/20 [History Last Taken 08/29/20] lorazepam 0.5 mg PO BID 05/28/21 [History Last Taken Unknown] quetiapine 100 mg PO QHS 07/21/21 [History Last Taken Unknown] metoprolol succinate [Toprol XL] 25 mg PO DAILY #30 tab 07/22/21 [Rx Last Taken Unknown] mirtazapine 7.5 mg PO QHS 09/01/21 [History Last Taken Unknown] valsartan-hydrochlorothiazide 1 tab PO DAILY 09/01/21 [History Last Taken Unknown] Allergy/AdvReac Type Severity Reaction Status Date / Time shellfish derived Allergy Unknown Verified 08/30/20 15:08 Social History Smoking Status: Unknown if ever smoked ROS ROS ED ROS Narrative Denies recent illness. Very limited informant due to his dementia. Review of Systems ROS Unobtainable: due to mental status Constitutional Constitutional ED: Denies fever(s) Eyes Eyes: Denies change in vision ENT ENT ED: Denies ear pain Cardiovascular Cardiovascular: Denies chest pain Respiratory/Chest Respiratory/Chest: Denies cough or dyspnea Gastrointestinal Gastrointestinal: Denies abdominal pain, diarrhea, nausea or vomiting Genitourinary Genitourinary ED: Denies dysuria Musculoskeletal Musculoskeletal: Denies myalgias Integumentary Denies rash Neurologic Neurologic: Denies headache(s) Psychiatric Psychiatric: Denies depression Endocrine Endocrinology: Denies polyuria Allergic/Immunologic Allergic/Immunologic ED: Denies urticaria EXAM Physical Exam Narrative Exam Narrative: 76-year-old male vital signs are stable except his accelerated pulse about 135. Pulse is 97% on room air no hypoxia. He is afebrile. He is in no distress. H EENT exam pupils round reactive light. Moist with memories. He knows any obvious signs of trauma nor is his face or scalp tender. There is no hematomas. C-spine nontender. Trachea midline. Lungs clear to auscultation. Heart tachycardic rate about 135 I do not appreciate a murmur. Chest wall nontender. No crepitance or subcu air. No bruising. No bony deformity. Abdomen soft nontender. Pelvic girdle intact. Upper and lower extremities are nontender. No deformities. Dorsi plantarflexion intact. Neurologically he is awake. He is alert. He answers questions. He is a very limited informant due to his dementia. He is confused. Const Vital Signs: 09/01/21 09:10 09/01/21 09:36 09/01/21 10:00 Temperature 98.3 F 98.3 F Temperature Source Temporal Temporal Pulse Rate 128 H 128 H 135 H Respiratory Rate 12 12 Respiratory Effort Normal Non-Labored Respiratory Pattern Normal Blood Pressure 125/68 H 125/68 H 112/56 L Blood Pressure Mean 87 87 74 Blood Pressure Source Blood Pressure Position Blood Pressure Location Pulse Ox 97 97 Oxygen Delivery Method Room Air Room Air Oxygen Flow Rate (L/min) 09/01/21 10:24 09/01/21 10:30 09/01/21 10:45 Temperature 98.2 F Temperature Source Oral Pulse Rate 150 H 141 H 145 H Respiratory Rate 18 Respiratory Effort Respiratory Pattern Blood Pressure 95/83 H 95/83 H 67/53 L Blood Pressure Mean 87 87 57 Blood Pressure Source Blood Pressure Position Blood Pressure Location Pulse Ox 96 Oxygen Delivery Method Room Air Oxygen Flow Rate (L/min) 09/01/21 10:58 09/01/21 11:10 09/01/21 11:46 Temperature Temperature Source Pulse Rate Respiratory Rate Respiratory Effort Respiratory Pattern Blood Pressure 80/60 L 74/51 L 77/53 L Blood Pressure Mean 66 58 61 Blood Pressure Source Blood Pressure Position Blood Pressure Location Pulse Ox Oxygen Delivery Method Oxygen Flow Rate (L/min) 09/01/21 12:00 09/01/21 12:42 09/01/21 12:54 Temperature Temperature Source Pulse Rate 150 H 151 H 138 H Respiratory Rate 18 Respiratory Effort Respiratory Pattern Blood Pressure 75/50 L 85/36 L 70/53 L Blood Pressure Mean 58 52 58 Blood Pressure Source Monitor Blood Pressure Position Semi-Fowlers Blood Pressure Location Left Arm Pulse Ox 97 Oxygen Delivery Method Room Air Oxygen Flow Rate (L/min) 09/01/21 13:15 09/01/21 13:22 09/01/21 13:45 Temperature Temperature Source Pulse Rate 151 H Respiratory Rate Respiratory Effort Respiratory Pattern Blood Pressure 78/31 L 85/58 L Blood Pressure Mean 46 67 Blood Pressure Source Blood Pressure Position Blood Pressure Location Pulse Ox 100 Oxygen Delivery Method Oxygen Flow Rate (L/min) 09/01/21 14:34 09/01/21 14:52 Temperature Temperature Source Pulse Rate 123 H Respiratory Rate 22 H Respiratory Effort Respiratory Pattern Blood Pressure 71/51 L 128/64 H Blood Pressure Mean 57 85 Blood Pressure Source Blood Pressure Position Blood Pressure Location Pulse Ox 100 Oxygen Delivery Method Nasal Cannula Oxygen Flow Rate (L/min) 2 Positive well nourished and well developed; Negative for cachectic, contractures or unkempt General Appearance ED: well developed and NAD; Negative for unkempt, cachectic, contractures, cyanotic or diaphoretic Nutritional Appearance: Negative for cachectic HEENT Reports moist mucous membranes Negative for trauma Eyes PERRL and EOMs intact bilaterally Neck no lymphadenopathy, supple and no JVD General: Negative for tenderness Chest Wall inspection of chest normal and palpation of chest normal Resp normal respiratory effort and clear to auscultation bilaterally Effort and Inspection: Negative for pain with movement Auscultation: Negative for rales, rhonchi or wheezes Cardio regular rate, regular rhythm, S1 normal heart sound, S2 normal heart sound and no murmurs GI normal to inspection, nondistended, normoactive bowel sounds, non-tender, non-distended and no masses Inspection: Negative for abdominal distention Auscultation: normoactive bowel sounds Palpation: soft; Negative for tender, guarding or rebound tenderness present Back/Spine no CVA tenderness General Back: Negative for CVA tenderness Cervical Spine: Negative for cervical spine tenderness Thoracic Spine / Upper Back: Negative for thoracic spinal tenderness or paraspinal muscle tenderness Lumbar Spine / Lower Back: Negative for lumbar spinal tenderness Extremity normal to inspection General Extremety ED: Negative for edema or tenderness General Extremity: Negative for edema Neuro No oriented x3 Neuro Narrative: Confused male with a history of dementia. But he is moving all 4 extremities. He is awake and alert. He answers questions. He follows commands. Sensorium / Orientation: alert and orientation impaired; Negative for lethargic or stuporous Motor Exam: strength 5/5 throughout Psych mental status grossly normal Appearance: Negative for unkempt Attitude: No agitated Mood & Affect: Negative for depressed, anxious or tearful Skin no rashes or lesions noted and no wounds MDM MDM MDM Narrative Medical decision making narrative: Male from a senior living with dementia. Reportedly had a fall. Initially was listed as syncope he did not lose consciousness. Exam is benign except for the tachycardia. Repeat exam patient remains tachycardic I suspect this is underlying A. fib or a flutter his rates around 135. The cuff has been reading low but we did manual blood pressures under around 90 systolic. He is a good radial pulse and he is mentating well. I went to try a fluid bolus to help improve his pressure and then try IV Cardizem. If his pressure becomes more problematic we may have to do cardioversion. The Cardizem bolus and drip really were not doing the patient any significant good. He remained hypotensive with a pressure around 80 systolic. His heart rate was between 120 and 140. We decided to cardiovert him. We are going to treat the patient with etomidate to sedate him and in cardioverting. After giving 2-1/2 cc about 5 mg of etomidate he spontaneously converted to a sinus rhythm. Hence we did not shock him. Then he went back into A. fib about 5 minutes later. [place] see with the Cardizem drip will do now that he has a blood pressure of 125/80. Lab Data Attestation: I reviewed the patient's lab results. Lab results narrative: CBC shows a white count of 13.2. H&H 11.5 and 35. Platelets 328. Electrolytes unremarkable gap at 9 BUN of 49 creatinine of 2.57 the patient has a history of renal insufficiency and anemia which are consistent with his lab values today. Troponin is normal at 10. Labs: Laboratory Results - last 24 hr 09/01/21 09/01/21 09:35 09:35 WBC 13.2 H RBC 3.82 L Hgb 11.5 L Hct 35.4 L MCV 92.7 MCH 30.1 MCHC 32.5 RDW Std Deviation 44.9 H RDW Coeff of Sanchez 13.2 Plt Count 328 MPV 9.4 Immature Gran % (Auto) 0.400 Neut % (Auto) 65.6 Lymph % (Auto) 13.5 L [place] % (Auto) 9.3 Eos % (Auto) 11.0 H Baso % (Auto) 0.2 Absolute Neuts (auto) 8.6 H Absolute Lymphs (auto) 1.78 Nucleated RBC % 0 Sodium 141 Potassium 4.7 Chloride 109 H Carbon Dioxide 23.0 Anion Gap 9 BUN 49 H Creatinine 2.57 H Estim Creat Clear Calc 27.20 Est GFR (MDRD) Af Amer 31 L Est GFR (MDRD) Non-Af 26 L BUN/Creatinine Ratio 19.1 Glucose 138 H Calcium 8.6 Troponin I High Sens 10 Radiography Chest X-Ray - ED: 1 View, Read by ED Physician, Read by Radiologist, Heart, Lungs, Mediastinum, Bony Structures, No Acute Disease and Chronic Changes Diagnostic Testing: Clinical Impression(s) from Imaging Studies Chest X-Ray 09/01/21 09:14 IMPRESSION: No significant change. No new infiltrate is seen. Electronically Signed: Messi Browne, at 10:29 EST , Brain CT 09/01/21 09:39 IMPRESSION: 1. Chronic involutional changes of the brain. 2. No acute intracranial process. Electronically Signed: Messi Browne, at 10:19 EST , Cervical Spine CT 09/01/21 09:39 IMPRESSION: 1. Multilevel degenerative changes, as described above. 2. No demonstrated acute fracture or subluxation. 3. Straightening of the cervical spine due to muscle spasm. Electronically Signed: Messi Browne, at 10:23 EST , Chest x-ray, portable, single view showed chronic changes no acute process. Interpreted both by myself and the radiologist. Rhythm Strip Rhythm Strip: Tachycardia Rate: 145 Ectopy: None EKG Initial EKG: Attestation: I personally reviewed and interpreted this EKG as follows: Interpretation: No Acute Injury Pattern Comments: Wide-complex tachycardia rate of 145. Right bundle branch block. Prior EKG from July showed a sinus tachycardia rate of 101. It is changed from the wide-complex tachycardia that we see today. Prior EKG tracings: available for review Prior: Changed Discharge Plan Triage Chief Complaint: Syncope ED Provider: Serafin Cyr Dx/Rx/DC Orders Prescriptions: No Action quetiapine 25 MG tablet 75 mg PO BID RF: 0 nateglinide 120 MG tablet 120 mg PO TIDCM RF: 0 atorvastatin 20 MG tablet 20 mg PO QHS RF: 0 diltiazem HCl 180 MG capsule,extended release 24hr 180 mg PO DAILY RF: 0 ferrous sulfate 325 MG tablet 325 mg PO DAILY RF: 0 metformin 1,000 MG tablet 1,000 mg PO BID RF: 0 memantine 5 MG tablet 5 mg PO BID RF: 0 lorazepam 0.5 mg Tablet 0.5 mg PO BID RF: 0 quetiapine 100 mg Tablet 100 mg PO QHS RF: 0 metoprolol succinate [Toprol XL] 25 mg tablet extended release 24 hr 25 mg PO DAILY Qty: 30 RF: 0 valsartan-hydrochlorothiazide 160-12.5 mg Tablet 1 tab PO DAILY RF: 0 mirtazapine 7.5 mg Tablet 7.5 mg PO QHS RF: 0 Primary Care Provider: Riddhi Cantrell
--- NOTE | 2021-09-01 09:39 | CT_ITS ---
STUDY: CT BRAIN WITHOUT CONTRAST REASON FOR EXAM: Male, 76 years old. head trauma RADIATION DOSAGE (If Supplied By Facility): CTDIvol = ( 44.99 ) mGy, DLP = ( 779.24 ) mGycm TECHNIQUE: Transaxial CT imaging of the brain was performed without administration of intravenous contrast material. Individualized dose optimization techniques were used for this CT. COMPARISON: 08/30/2020. FINDINGS: Normal soft tissue structures. Normal calvarium. There is moderate cerebral atrophy with widening of the extra-axial spaces and ventricular dilatation. There are areas of decreased attenuation within the white matter tracts of the supratentorial brain, consistent with microvascular disease changes. Normal basal ganglia and thalami. Normal brainstem. Normal cerebellum. There is no intracranial hemorrhage. There are no findings of an acute ischemic infarction. Atherosclerotic calcifications of the cavernous internal carotid arteries. Mild mucosal thickening of the right maxillary sinus. CT/Brain/Head without Contrast IMPRESSION: 1. Chronic involutional changes of the brain. 2. No acute intracranial process. Electronically Signed: Messi Browne, at 10:19 EST ,
--- NOTE | 2021-09-01 09:39 | CT_ITS ---
STUDY: CT CERVICAL SPINE WITHOUT CONTRAST REASON FOR EXAM: Male, 76 years old. Fall RADIATION DOSAGE (If Supplied By Facility): CTDIvol = ( 25.69 ) mGy, DLP = ( 505.26 ) mGycm TECHNIQUE: High resolution transaxial imaging was performed without contrast material. Sagittal and coronal images were reconstructed. Individualized dose optimization techniques were used for this CT. COMPARISON: None FINDINGS: Normal craniovertebral junction. There are degenerative changes of the anterior atlantoaxial articulation. Normal odontoid process. There is straightening of the normal cervical lordosis. The vertebral heights are within normal limits. No evidence of acute compression fracture deformity. The posterior elements are intact. The alignment of the vertebral bodies are unremarkable. Multilevel degenerative changes of the cervical spine unchanged since the prior exam including narrowing of C5-C6 and C6-C7 disc spaces. Posterior lateral degenerative spurs with narrowing of the neural foramina particularly. Anterior degenerative osteophyte formations. No prevertebral soft tissue swelling. Atherosclerotic calcifications of the carotid arteries bilaterally. CT/Spine Cervical without Contras IMPRESSION: 1. Multilevel degenerative changes, as described above. 2. No demonstrated acute fracture or subluxation. 3. Straightening of the cervical spine due to muscle spasm. Electronically Signed: Messi Browne, at 10:23 EST ,
[2021-09-01 09:47] LABS: Absolute Lymphocyte Count 1.78 X10^3/uL (0.83-4.51); Absolute Neutrophil Count 8.6 X10^3/uL (2.0-7.7); Basophil# 0.02 X10^3/uL; Basophil% 0.2 % (0-1); Eosinophil# 1.44 X10^3/uL; Hematocrit 35.4 % (40-54); Hemoglobin 11.5 g/dL (13.0-16.5); Lymphocyte # 1.78 X10^3/ul (0.83-4.51); Lymphocyte % 13.5 % (19-41); Mean Corp Hgb Conc 32.5 g/dL (32-36); Mean Corpuscular Hgb 30.1 pg (27.0-32.0); Mean Corpuscular Volume 92.7 fL (80-94); Mean Platelet Vol. 9.4 fl (6.2-12.0); Monocyte# 1.22 X10^3/uL; Monocyte% 9.3 % (0-10); NRBC Flagged by Analyzer 0 % (0-5); Neutrophil # 8.64 X10^3/uL (2.7-7.7); Neutrophil % 65.6 % (47-70); Platelet Count 328 K/mm3 (150-450); RBC Distribution Width CV 13.2 % (11.6-14.6); RBC Distribution Width SD 44.9 fl (35.1-43.9); Red Blood Count 3.82 M/mm3 (4.6-6.2); White Blood Count 13.2 K/mm3 (4.4-11.0)
[2021-09-01 10:03] LABS: Anion Gap 9 (5-15); BUN 49 mg/dL (7-18); BUN/Creat Ratio 19.1 RATIO (10-20); Calcium,Total 8.6 mg/dL (8.5-10.1); Chloride 109 mmol/L (98-107); Creatinine, Serum 2.57 mg/dL (0.70-1.30); EST Glomerular Filtration Rate 26 mL/min (>60); Est Glom Filt Rate - Afr Amer 31 mL/min (>60); Glucose 138 mg/dL (74-106); Potassium 4.7 mmol/L (3.5-5.1); Sodium Level 141 mmol/L (136-145); Troponin-I HS 10 pg/mL (3.0-78.0)
[2021-09-01] MEDS: 0.9% Normal Saline 1,000 ML 999 ML IV (11:08)
[2021-09-01] MEDS: dilTIAZem 25 MG/5 ML Vial 20 MG IV BOLUS (11:09)
--- NOTE | 2021-09-01 12:19 | ED.RN ---
Pt monitor off and IVAC beeping. Into room, pt had taken gown and all monitoring wires off. Pt had also pulled out his IV for the second time. Pt remains in AFIB RVR in the 140-150's. Pt only oriented to self. Dr Cyr aware, order obtained for b/l soft wrist restraints.
[2021-09-01] MEDS: Etomidate 20 MG/10 ML Vial 10 MG IV (14:50)
--- NOTE | 2021-09-01 14:50 | ED.RN ---
Dr. Cyr administering etomidate and pt converted during administration. Only 5mg given.
--- NOTE | 2021-09-01 15:25 | HP.PCM.HOS_ITS ---
HPI - General General Date of Admission: 09/01/21 Date of Service: 09/01/21 Chief Complaint: A. fib with RVR HPI Narrative PATSY CORONA, is a 76 M who presented to the emergency department was coming hospital on 09/01/2021 from the nursing facility at which she resides after sustaining a fall at the nursing facility that resulted in no loss of consciousness. The patient is unable to give me any history as he has fairly severe dementia. He was recently admitted in early July with chest pain and was found to a wide-complex tachycardia he was hypotensive at the time and was cardioverted which improved his heart rate and blood pressure. It was thought at that time that it might be a wide-complex ventricular tachycardia however it appears that the patient has a chronic right bundle branch block and I am suspicious this may be a flutter with 2-1 block. At that time it was contemplated starting amiodarone therapy but since this was a high risk medication it was avoided unless the tachyarrhythmia recurred and the patient was discharged on 07/22/2021 back to his nursing facility. Today in the emergency department the patient was found to have a heart rate again in the 150s and it appeared to be a wide-complex tachycardia with right bundle branch block pattern again the heart rate was in the 150s on presentation and he was hypotensive with a blood pressure of 78/51 however he spontaneously converted 3 times but he did not remain in sinus rhythm and his heart rates are currently in the 120s to 140 range. His blood pressures have remained stable at this time. From a respiratory standpoint he stable on room air with oxygen saturations in 100%. The patient is alert however he is very confused and unable to give any type of history or make any meaningful conversation. His CBC shows a mild leukocytosis at 13.2 with a mild anemia at 11.5 his platelets are normal. His BMP shows an elevated BUN/creatinine however they are not markedly off his baseline. His troponin is 10. His EKG shows a wide complex tachycardia with right bundle branch block pattern. I do suspect this is atrial flutter with a 2-1 block. H is chest x-ray shows no acute processes. Given his fall a CT of his brain and cervical spine were performed and are negative for any acute processes. [facility] Medical History Anemia Cognitive impairment Dementia HTN (hypertension) Hyperlipidemia Obesity Type 2 diabetes mellitus Home Medications atorvastatin 20 mg PO QHS 08/28/20 [History Last Taken 08/29/20] diltiazem HCl 180 mg PO DAILY 08/28/20 [History Last Taken 08/30/20] ferrous sulfate 325 mg PO DAILY 08/28/20 [History Last Taken 08/30/20] memantine 5 mg PO BID 08/28/20 [History Last Taken 08/30/20] metformin 1,000 mg PO BID 08/28/20 [History Last Taken 08/30/20] nateglinide 120 mg PO TIDCM 08/28/20 [History Last Taken 08/30/20] quetiapine 75 mg PO BID 08/28/20 [History Last Taken 08/29/20] lorazepam 0.5 mg PO BID 05/28/21 [History Last Taken Unknown] quetiapine 100 mg PO QHS 07/21/21 [History Last Taken Unknown] metoprolol succinate [Toprol XL] 25 mg PO DAILY #30 tab 07/22/21 [Rx Last Taken Unknown] mirtazapine 7.5 mg PO QHS 09/01/21 [History Last Taken Unknown] valsartan-hydrochlorothiazide 1 tab PO DAILY 09/01/21 [History Last Taken Unknown] Allergy/AdvReac Type Severity Reaction Status Date / Time shellfish derived Allergy Unknown Verified 08/30/20 15:08 unable to obtain (Due to patient's mental status) unable to obtain (Due to patient's mental status) Social History Smoking Status: Unknown if ever smoked ROS Review of Systems ROS Unobtainable: due to mental condition and other Details: Patient with marked dementia at baseline Vital Signs Vital Signs Vital Signs: 09/01/21 09:10 09/01/21 09:36 09/01/21 10:00 Temperature 98.3 F 98.3 F Temperature Source Temporal Temporal Pulse Rate 128 H 128 H 135 H Pulse Rate [1 (Initial Baseline)] Respiratory Rate 12 12 Respiratory Rate [1 (Initial Baseline)] Respiratory Effort Normal Non-Labored Respiratory Pattern Normal Blood Pressure 125/68 H 125/68 H 112/56 L Blood Pressure [1 (Initial Baseline)] Blood Pressure Mean 87 87 74 Blood Pressure Source Blood Pressure Position Blood Pressure Location Pulse Ox 97 97 Oxygen Delivery Method Room Air Room Air Oxygen Delivery Method [1 (Initial Baseline)] Oxygen Flow Rate (L/min) Oxygen Flow Rate (L/min) [1 (Initial Baseline)] 09/01/21 10:24 09/01/21 10:30 09/01/21 10:45 Temperature 98.2 F Temperature Source Oral Pulse Rate 150 H 141 H 145 H Pulse Rate [1 (Initial Baseline)] Respiratory Rate 18 Respiratory Rate [1 (Initial Baseline)] Respiratory Effort Respiratory Pattern Blood Pressure 95/83 H 95/83 H 67/53 L Blood Pressure [1 (Initial Baseline)] Blood Pressure Mean 87 87 57 Blood Pressure Source Blood Pressure Position Blood Pressure Location Pulse Ox 96 Oxygen Delivery Method Room Air Oxygen Delivery Method [1 (Initial Baseline)] Oxygen Flow Rate (L/min) Oxygen Flow Rate (L/min) [1 (Initial Baseline)] 09/01/21 10:58 09/01/21 11:10 09/01/21 11:46 Temperature Temperature Source Pulse Rate Pulse Rate [1 (Initial Baseline)] Respiratory Rate Respiratory Rate [1 (Initial Baseline)] Respiratory Effort Respiratory Pattern Blood Pressure 80/60 L 74/51 L 77/53 L Blood Pressure [1 (Initial Baseline)] Blood Pressure Mean 66 58 61 Blood Pressure Source Blood Pressure Position Blood Pressure Location Pulse Ox Oxygen Delivery Method Oxygen Delivery Method [1 (Initial Baseline)] Oxygen Flow Rate (L/min) Oxygen Flow Rate (L/min) [1 (Initial Baseline)] 09/01/21 12:00 09/01/21 12:42 09/01/21 12:54 Temperature Temperature Source Pulse Rate 150 H 151 H 138 H Pulse Rate [1 (Initial Baseline)] Respiratory Rate 18 Respiratory Rate [1 (Initial Baseline)] Respiratory Effort Respiratory Pattern Blood Pressure 75/50 L 85/36 L 70/53 L Blood Pressure [1 (Initial Baseline)] Blood Pressure Mean 58 52 58 Blood Pressure Source Monitor Blood Pressure Position Semi-Fowlers Blood Pressure Location Left Arm Pulse Ox 97 Oxygen Delivery Method Room Air Oxygen Delivery Method [1 (Initial Baseline)] Oxygen Flow Rate (L/min) Oxygen Flow Rate (L/min) [1 (Initial Baseline)] 09/01/21 13:15 09/01/21 13:22 09/01/21 13:45 Temperature Temperature Source Pulse Rate 151 H Pulse Rate [1 (Initial Baseline)] Respiratory Rate Respiratory Rate [1 (Initial Baseline)] Respiratory Effort Respiratory Pattern Blood Pressure 78/31 L 85/58 L Blood Pressure [1 (Initial Baseline)] Blood Pressure Mean 46 67 Blood Pressure Source Blood Pressure Position Blood Pressure Location Pulse Ox 100 Oxygen Delivery Method Oxygen Delivery Method [1 (Initial Baseline)] Oxygen Flow Rate (L/min) Oxygen Flow Rate (L/min) [1 (Initial Baseline)] 09/01/21 14:34 09/01/21 14:43 09/01/21 14:50 Temperature Temperature Source Pulse Rate 150 H Pulse Rate [1 (Initial Baseline)] 150 H Respiratory Rate 19 H Respiratory Rate [1 (Initial Baseline)] 19 H Respiratory Effort Respiratory Pattern Blood Pressure 71/51 L 78/67 L Blood Pressure [1 (Initial Baseline)] 78/67 L Blood Pressure Mean 57 Blood Pressure Source Blood Pressure Position Blood Pressure Location Pulse Ox 100 Oxygen Delivery Method Oxygen Delivery Method [1 (Initial Baseline)] Nasal Cannula Oxygen Flow Rate (L/min) Oxygen Flow Rate (L/min) [1 (Initial Baseline)] 2 09/01/21 14:52 09/01/21 14:55 09/01/21 14:59 Temperature Temperature Source Pulse Rate 123 H 124 H 140 H Pulse Rate [1 (Initial Baseline)] Respiratory Rate 22 H 18 Respiratory Rate [1 (Initial Baseline)] Respiratory Effort Respiratory Pattern Blood Pressure 128/64 H 128/64 H 101/74 Blood Pressure [1 (Initial Baseline)] Blood Pressure Mean 85 83 Blood Pressure Source Monitor Blood Pressure Position Semi-Fowlers Blood Pressure Location Right Arm Pulse Ox 100 100 Oxygen Delivery Method Nasal Cannula Nasal Cannula Oxygen Delivery Method [1 (Initial Baseline)] Oxygen Flow Rate (L/min) 2 2 Oxygen Flow Rate (L/min) [1 (Initial Baseline)] 09/01/21 15:00 09/01/21 15:06 09/01/21 15:14 Temperature Temperature Source Pulse Rate 140 H 137 H 122 H Pulse Rate [1 (Initial Baseline)] Respiratory Rate 19 H 19 H 18 Respiratory Rate [1 (Initial Baseline)] Respiratory Effort Respiratory Pattern Blood Pressure 113/67 95/71 112/88 H Blood Pressure [1 (Initial Baseline)] Blood Pressure Mean 96 Blood Pressure Source Blood Pressure Position Blood Pressure Location Pulse Ox 100 100 100 Oxygen Delivery Method Room Air Room Air Oxygen Delivery Method [1 (Initial Baseline)] Oxygen Flow Rate (L/min) Oxygen Flow Rate (L/min) [1 (Initial Baseline)] 09/01/21 15:17 Temperature 97.3 F L Temperature Source Temporal Pulse Rate 135 H Pulse Rate [1 (Initial Baseline)] Respiratory Rate 20 H Respiratory Rate [1 (Initial Baseline)] Respiratory Effort Respiratory Pattern Blood Pressure 112/88 H Blood Pressure [1 (Initial Baseline)] Blood Pressure Mean 96 Blood Pressure Source Blood Pressure Position Blood Pressure Location Pulse Ox 100 Oxygen Delivery Method Room Air Oxygen Delivery Method [1 (Initial Baseline)] Oxygen Flow Rate (L/min) Oxygen Flow Rate (L/min) [1 (Initial Baseline)] Weight Weight: 106.5 kg Body Mass Index (BMI) 30.5 Physical Exam Const alert Constitutional Narrative: older male lying in bed, multiple nursing staff at bedside, patient with intermittent agitation, currently in soft restraints as he is trying to pull out his IVs and other devices, noncombative however, alert and oriented to self only HEENT normocephalic, head/scalp atraumatic and moist oral mucous membranes HEENT Narrative: Dentition is poor, Mallampati is 2, no thrush Eyes PERRL, EOMs intact bilaterally and conjunctivae normal Eyes Narrative: No scleral icterus Neck no lymphadenopathy, supple and no JVD Neck Narrative: No significant cervical spine tenderness, trachea midline, no thyroid enlargement Resp normal respiratory effort, no retractions, no use of accessory muscles and clear to auscultation bilaterally Auscultation: Negative for crackles, rales, rhonchi or wheezes Cardio S1 normal heart sound, S2 normal heart sound, no murmurs, no rub, no gallops, no clicks and no JVD Cardio Narrative: Tachycardia GI normal to inspection, nondistended, normoactive bowel sounds, soft to palpation, non-tender and non-distended Extremity no clubbing, cyanosis or edema Peripheral Pulses: Yes pulses 2+ throughout Skin no rashes or lesions noted, no wounds, skin turgor normal, no jaundice, no petechiae and no mottling Skin Narrative: Skin is dry Neuro No oriented x3, CN's II-XII intact bilaterally and moves all extremities Neuro Narrative: Moves extremities spontaneously but limited command following, speech is fluent but nonsensical Sensorium / Orientation: awake, alert and oriented to person; Negative for oriented to place or oriented to time Psych Psych Narrative: Difficult to assess given severe dementia however patient is slightly agitated Results Lab / Micro Data Result Diagrams: 09/01/21 09:35 09/01/21 09:35 Labs: Laboratory Results - last 24 hr 09/01/21 09:35: WBC 13.2 H, RBC 3.82 L, Hgb 11.5 L, Hct 35.4 L, MCV 92.7, MCH 30.1, MCHC 32.5, RDW Std Deviation 44.9 H, RDW Coeff of Sanchez 13.2, Plt Count 328, MPV 9.4, Immature Gran % (Auto) 0.400, Neut % (Auto) 65.6, Lymph % (Auto) 13.5 L , Hughes % (Auto) 9.3, Eos % (Auto) 11.0 H, Baso % (Auto) 0.2, Absolute Neuts (auto) 8.6 H, Absolute Lymphs (auto) 1.78, Nucleated RBC % 0 09/01/21 09:35: Sodium 141, Potassium 4.7, Chloride 109 H, Carbon Dioxide 23.0, Anion Gap 9, BUN 49 H, Creatinine 2.57 H, Estim Creat Clear Calc 27.20, Est GFR (MDRD) Af Amer 31 L, Est GFR (MDRD) Non-Af 26 L, BUN/Creatinine Ratio 19.1, Glucose 138 H, Calcium 8.6, Troponin I High Sens 10 Rhythm Strip Rhythm Strip: Tachycardia Rate: 145 Ectopy: None Radiology Impression Chest X-Ray 09/01/21 09:14 IMPRESSION: No significant change. No new infiltrate is seen. Electronically Signed: Messi Pavan, at 10:29 EST , Brain CT 09/01/21 09:39 IMPRESSION: 1. Chronic involutional changes of the brain. 2. No acute intracranial process. Electronically Signed: Messi Pavan, at 10:19 EST , Cervical Spine CT 09/01/21 09:39 IMPRESSION: 1. Multilevel degenerative changes, as described above. 2. No demonstrated acute fracture or subluxation. 3. Straightening of the cervical spine due to muscle spasm. Electronically Signed: Messi Browne, at 10:23 EST , Assessment & Plan Assessment/Plan (1) Atrial fibrillation with rapid ventricular response: (2) Acute hypotension: (3) Leukocytosis: (4) Falls: PLAN: Wide-complex tachycardia -EKG with right bundle branch block pattern and tachycardia that is suspicious for atrial flutter with 2-1 block however rate is fast and is difficult to completely ascertain what the underlying rhythm is -Continue home metoprolol and Cardizem -Patient is not anticoagulated 2/2 to falls however he does have a history of paroxysmal atrial fibrillation -We will consider amiodarone however his QTC is prolonged greater than 500 will defer to cardiology at this time -Patient is currently otherwise hemodynamically stable therefore will defer cardioversion as his risk of stroke is high -Cardiology is consulted and educational diagnostician has been notified -She has spontaneously converted 3 times in the emergency department however this has not maintain resolved -Check echocardiogram -Check TSH Acute hypotension -Now resolved despite patient being in tachyarrhythmia -Monitor for further hypotension -Patient was given IV fluid boluses Leukocytosis -Suspect related to some hemoconcentration and stress response -No signs of acute infection -Repeat CBC in a.m. Frequent falls -Consult PT/OT -Difficult for patient to use assist device given severe dementia NIKUNJ CKD stage IIIb -Baseline serum creatinine is around 2 -Current serum creatinine is 2.57 -Patient was given 2 L of IV fluids in the emergency department -We will hold off on any further fluids at this time -May be perfusion related with tachyarrhythmia as well -Repeat BMP in a.m. History of paroxysmal atrial fibrillation -Continue diltiazem and metoprolol -Patient is not anticoagulated secondary to frequent falls Hyperlipidemia -Continue atorvastatin Chronic normocytic anemia -Patient is on iron supplementation at baseline -Hemoglobin is slightly up compared to baseline although I suspect he is hemoconcentrated DM-2 -Hold home Metformin/nateglinide Hypertension -Hold valsartan hydrochlorothiazide with worsening renal function and reassess tomorrow for reinitiation -As needed labetalol Dementia -Patient appears to have hyperactivity at baseline -Continue home Seroquel dosing -Continue home mirtazapine -Continue home lorazepam -Continue memantine DVT prophylaxis -Heparin 5000 units subcu twice daily -SCDs if able to keep them on the patient CODE STATUS -Full code as verified on the paperwork from the skilled facility -Need to further address CODE STATUS with the son tomorrow as overall prognosis is poor given severe dementia Charges/Coding Visit Charges Inpatient E&M: 01257 Init Hosp L3
--- NOTE | 2021-09-01 15:41 | ECHOCS_ITS ---
Reason For Study: ATRIAL FIB-FLUTTER Procedure This was a 2D Doppler, Color Flow transthoracic echocardiogram. The study was technically difficult. Contrast injection was performed. Exam performed portable in patient room. Left Ventricle Normal LV size. Left ventricular systolic function is normal. The estimated ejection fraction is 65 %. Unable to assess diastolic dysfunction. No regional wall motion abnormalities noted. Right Ventricle Normal RV size. Normal systolic function. Atria Normal left atrium. Normal right atrium. No doppler evidence for ASD. Mitral Valve There is no mitral annular calcification. Normal mitral valve. Trivial mitral valve insufficiency. Tricuspid Valve Normal tricuspid valve. Trivial tricuspid valve insufficiency. Right ventricular systolic pressure estimated to be 31 mmHg. Aortic Valve Trisinus/trileaflet aortic valve. Mild focal aortic valve calcification. Pulmonic Valve The pulmonic valve is not well visualized. Trivial pulmonic valve insufficiency. Great Vessels Normal sized aortic root. Pericardium/Pleural No pericardial effusion. Medication Diluted definity 2ml given slow IV push to enhance endocardial definition. MMode/2D Measurements & Calculations LVIDd: 4.3 cm IVSd: 0.93 cm Ao root diam: 3.1 cm LVIDs: 3.1 cm LVPWd: 1.0 cm RVDd: 3.0 cm FS: 28.6 % LAV(MOD-bp): 21.7 ml LVAd ap4: 22.5 cm2 SV(MOD-sp4): 32.8 ml LAV(MOD-bp) Indexed: 9.4 ml/m2 LVLd ap4: 7.1 cm LAV(MOD-sp2): 21.5 ml EDV(MOD-sp4): 60.2 ml LAV(MOD-sp4): 20.1 ml EDV(sp4-el): 60.7 ml LVAs ap4: 13.9 cm2 LVLs ap4: 5.8 cm ESV(MOD-sp4): 27.4 ml ESV(sp4-el): 28.2 ml EF(MOD-sp4): 54.4 % EF(sp4-el): 53.5 % SV(sp4-el): 32.5 ml LA A4 area: 11.2 cm2 LA dimension(2D): 3.3 cm RA A4 area: 8.4 cm2 Doppler Measurements & Calculations MV E max sadie: 73.3 cm/sec Ao V2 max: 109.8 cm/sec LV V1 max: 84.4 cm/sec Ao max P.3 mmHg LV V1 max P.0 mmHg PA V2 max: 53.6 cm/sec TR max sadie: 265.4 cm/sec TR max P.2 mmHg ECHO/Echo Complete W/ Contrast Interpretation Summary The study was technically difficult. Contrast injection was performed. Left ventricular systolic function is normal. The estimated ejection fraction is 65 %. Trivial mitral valve insufficiency. Trivial tricuspid valve insufficiency. Mild focal aortic valve calcification. Trivial pulmonic valve insufficiency. Right ventricular systolic pressure estimated to be 31 mmHg. Unable to assess diastolic dysfunction. Ordering Physician: Yuko Pierre Referring Physician: ERIK RYDER Performed By: Elaina Jewell RDCS
--- NOTE | 2021-09-01 16:33 | CON.PCM.CA_ITS ---
HPI Consult Data Date of Consult: 09/13/21 HPI Narrative Reason for Consultation: Patient with Hypertension and abnormal cardiac risk HPI Narrative: PATSY CORONA, is a 76 M who presents [facility] Medical History Anemia Cognitive impairment Dementia HTN (hypertension) Hyperlipidemia Obesity Type 2 diabetes mellitus Home Medications atorvastatin 20 mg PO QHS 08/28/20 [History Last Taken 08/29/20] ferrous sulfate 325 mg PO DAILY 08/28/20 [History Last Taken 08/30/20] memantine 5 mg PO BID 08/28/20 [History Last Taken 08/30/20] metformin 1,000 mg PO BID 08/28/20 [History Last Taken 08/30/20] nateglinide 120 mg PO TIDCM 08/28/20 [History Last Taken 08/30/20] quetiapine 75 mg PO BID 08/28/20 [History Last Taken 08/29/20] lorazepam 0.5 mg PO BID 05/28/21 [History Last Taken Unknown] quetiapine 100 mg PO QHS 07/21/21 [History Last Taken Unknown] metoprolol succinate [Toprol XL] 25 mg PO DAILY #30 tab 07/22/21 [Rx Last Taken Unknown] mirtazapine 7.5 mg PO QHS 09/01/21 [History Last Taken Unknown] valsartan-hydrochlorothiazide 1 tab PO DAILY 09/01/21 [History Last Taken Unknown] diltiazem HCl [Cartia XT] 180 mg PO DAILY 09/04/21 [History Last Taken Unknown] Allergy/AdvReac Type Severity Reaction Status Date / Time shellfish derived Allergy Unknown Verified 09/04/21 11:22 Family History unable to obtain Surgical History unable to obtain Social History housing: senior living Smoking Status: Unknown if ever smoked Physical Exam Narrative Seen and evaluated at bedside along with the nursing staff neck Patient had history of dementia and recurrent fall HEENT; normocephalic, head/scalp atraumatic and moist oral mucous membranes Neck; no lymphadenopathy, supple no JVD Cardiovascular examination; monitoring coordinator showed normal sinus rhythm with sinus tachycardia heart rate of 118 S1-S2 is regular, there is no murmur no systolic or diastolic murmur, no pericardial rub or gallop Chest exam. Clear to auscultation bilateral H[employer]; no focal neurological deficit Examination lower extremity no clubbing no cyanosis no lower extremity edema. Objective Data Vital Signs: Vital Signs Temp Pulse Resp BP Pulse Ox 98.2 F 118 H 17 147/81 H 99 09/01/21 15:42 09/01/21 16:27 09/01/21 16:27 09/01/21 16:27 09/01/21 16:27 Oxygen Flow Rate (L/min) [1 ( 2 Initial Baseline)] Oxygen Flow Rate (L/min) 2 Oxygen Delivery Method [1 ( Nasal Cannula Initial Baseline)] Oxygen Delivery Method Room Air Weight: 231 lb 11.293 oz Body Mass Index (BMI) 30.0 Intake & Output: Intake and Output for Last 24 Hours 08/30/21 08/31/21 09/01/21 23:59 23:59 23:59 Intake Total 1026.09 / 1026.09 Balance 1026.09 / 1026.09 Lab / Micro Data Result Diagrams: 09/02/21 05:34 09/02/21 05:34 Labs: Laboratory Results - last 24 hr 09/01/21 09:35: WBC 13.2 H, RBC 3.82 L, Hgb 11.5 L, Hct 35.4 L, MCV 92.7, MCH 30.1, MCHC 32.5, RDW Std Deviation 44.9 H, RDW Coeff of Sanchez 13.2, Plt Count 328, MPV 9.4, Immature Gran % (Auto) 0.400, Neut % (Auto) 65.6, Lymph % (Auto) 13.5 L , [place] % (Auto) 9.3, Eos % (Auto) 11.0 H, Baso % (Auto) 0.2, Absolute Neuts (auto) 8.6 H, Absolute Lymphs (auto) 1.78, Nucleated RBC % 0 09/01/21 09:35: Sodium 141, Potassium 4.7, Chloride 109 H, Carbon Dioxide 23.0, Anion Gap 9, BUN 49 H, Creatinine 2.57 H, Estim Creat Clear Calc 27.20, Est GFR (MDRD) Af Amer 31 L, Est GFR (MDRD) Non-Af 26 L, BUN/Creatinine Ratio 19.1, Glucose 138 H, Calcium 8.6, Troponin I High Sens 10 Rhythm Strip Rhythm Strip: Tachycardia Rate: 145 Ectopy: None Cardiology Labs/Tests 09/01/21 09:35: WBC 13.2 H, RBC 3.82 L, Hgb 11.5 L, Hct 35.4 L, MCV 92.7, MCH 30.1, MCHC 32.5, Plt Count 328, MPV 9.4, Immature Gran % (Auto) 0.400, Neut % (Auto) 65.6, Lymph % (Auto) 13.5 L, [place] % (Auto) 9.3, Eos % (Auto) 11.0 H, Baso % (Auto) 0.2, Absolute Neuts (auto) 8.6 H, Nucleated RBC % 0 09/01/21 09:35: Sodium 141, Potassium 4.7, Chloride 109 H, Carbon Dioxide 23.0, Anion Gap 9, BUN 49 H, Creatinine 2.57 H, Est GFR (MDRD) Af Amer 31 L, Est GFR (MDRD) Non-Af 26 L, BUN/Creatinine Ratio 19.1, Glucose 138 H, Calcium 8.6 Rhythm: Normal sinus rhythm with sinus tachycardia EKG: Atrial flutter with 2 :1 AV block/right bundle branch block Radiography Diagnostic Testing: Radiology Impression Chest X-Ray 09/01/21 09:14 IMPRESSION: No significant change. No new infiltrate is seen. Electronically Signed: Messi Browne, at 10:29 EST Reading Location ID and State: [facility] / [place] Tel , Service support , Brain CT 09/01/21 09:39 IMPRESSION: 1. Chronic involutional changes of the brain. 2. No acute intracranial process. Electronically Signed: Messi Browne, at 10:19 EST , Cervical Spine CT 09/01/21 09:39 IMPRESSION: 1. Multilevel degenerative changes, as described above. 2. No demonstrated acute fracture or subluxation. 3. Straightening of the cervical spine due to muscle spasm. Electronically Signed: Messi Browne, at 10:23 EST ,
--- NOTE | 2021-09-01 16:40 | CON.PCM.CA_ITS ---
Assessment & Plan Assessment/Plan (1) Falls: (2) History of diabetes mellitus: (3) History of hypertension: PLAN: 76-year-old patient with history of dementia and recurrent fall. Patient had a history of hypertension, hyperlipidemia, type 2 diabetes mellitus and renal insufficiency with a baseline creatinine range of 2.5 Patient admitted from nursing facility transferred over here to the ED at [facility] Patient has hypotension with abnormal cardiac rhythm, underlying right bundle branch block, atrial flutter with 2-1 AV block. Patient converted to sinus rhythm and was on Cardizem drip IV. Cardiac care plan and recommendations; 1. On review of the EKG it clearly demonstrated right bundle branch block with atrial flutter 2-1 AV block with a heart rate of 150 2. Patient converted to normal sinus rhythm 3. I reviewed his current medication started on amiodarone p.o. in addition to beta-oscar metoprolol XL. Discontinue calcium channel oscar 4. We will evaluate by echocardiogram on Friday. I called the son to discuss long-term plan of anticoagulation and the risk of bleed as patient had dementia with recurrent falls HPI Consult Data Date of Consult: 09/01/21 HPI Narrative Reason for Consultation: Atrial flutter with 2 1 AV block/hypotension HPI Narrative: PATSY CORONA, is a 76 M who presents [facility] Medical History Anemia Cognitive impairment Dementia HTN (hypertension) Hyperlipidemia Obesity Type 2 diabetes mellitus Home Medications atorvastatin 20 mg PO QHS 08/28/20 [History Last Taken 08/29/20] diltiazem HCl 180 mg PO DAILY 08/28/20 [History Last Taken 08/30/20] ferrous sulfate 325 mg PO DAILY 08/28/20 [History Last Taken 08/30/20] memantine 5 mg PO BID 08/28/20 [History Last Taken 08/30/20] metformin 1,000 mg PO BID 08/28/20 [History Last Taken 08/30/20] nateglinide 120 mg PO TIDCM 08/28/20 [History Last Taken 08/30/20] quetiapine 75 mg PO BID 08/28/20 [History Last Taken 08/29/20] lorazepam 0.5 mg PO BID 05/28/21 [History Last Taken Unknown] quetiapine 100 mg PO QHS 07/21/21 [History Last Taken Unknown] metoprolol succinate [Toprol XL] 25 mg PO DAILY #30 tab 07/22/21 [Rx Last Taken Unknown] mirtazapine 7.5 mg PO QHS 09/01/21 [History Last Taken Unknown] valsartan-hydrochlorothiazide 1 tab PO DAILY 09/01/21 [History Last Taken Unknown] Allergy/AdvReac Type Severity Reaction Status Date / Time shellfish derived Allergy Unknown Verified 08/30/20 15:08 Family History unable to obtain Surgical History unable to obtain Social History (Updated 09/01/21 @ 15:50 by Sadie Shin) housing: long term Smoking Status: Unknown if ever smoked Physical Exam Narrative Patient seen and evaluated at bedside along with the nursing staff Patient with history of dementia Comfortable lying in bed Review of quality assurance monitor chassis underlying rhythm is sinus rhythm with sinus tachycardia Cardiac examination; no JVD, S1-S2 regular, no systolic or diastolic murmur, no pericardial rub. Chest examination; normal auscultation bilateral Examination lower extremity no clubbing no lower extremity edema Risk Stratification Risk Stratification Applicable: No Objective Data Vital Signs: Vital Signs Temp Pulse Resp BP Pulse Ox 98.2 F 118 H 17 147/81 H 99 09/01/21 15:42 09/01/21 16:27 09/01/21 16:27 09/01/21 16:27 09/01/21 16:27 Oxygen Flow Rate (L/min) [1 ( 2 Initial Baseline)] Oxygen Flow Rate (L/min) 2 Oxygen Delivery Method [1 ( Nasal Cannula Initial Baseline)] Oxygen Delivery Method Room Air Weight: 231 lb 11.293 oz Body Mass Index (BMI) 30.0 Intake & Output: Intake and Output for Last 24 Hours 08/30/21 08/31/21 09/01/21 23:59 23:59 23:59 Intake Total 1026.09 / 1026.09 Balance 1026.09 / 1026.09 Lab / Micro Data Result Diagrams: 09/01/21 09:35 09/01/21 09:35 Labs: Laboratory Results - last 24 hr 09/01/21 09:35: WBC 13.2 H, RBC 3.82 L, Hgb 11.5 L, Hct 35.4 L, MCV 92.7, MCH 30.1, MCHC 32.5, RDW Std Deviation 44.9 H, RDW Coeff of Sanchez 13.2, Plt Count 328, MPV 9.4, Immature Gran % (Auto) 0.400, Neut % (Auto) 65.6, Lymph % (Auto) 13.5 L , [place] % (Auto) 9.3, Eos % (Auto) 11.0 H, Baso % (Auto) 0.2, Absolute Neuts (auto) 8.6 H, Absolute Lymphs (auto) 1.78, Nucleated RBC % 0 09/01/21 09:35: Sodium 141, Potassium 4.7, Chloride 109 H, Carbon Dioxide 23.0, Anion Gap 9, BUN 49 H, Creatinine 2.57 H, Estim Creat Clear Calc 27.20, Est GFR (MDRD) Af Amer 31 L, Est GFR (MDRD) Non-Af 26 L, BUN/Creatinine Ratio 19.1, Glucose 138 H, Calcium 8.6, Troponin I High Sens 10 Rhythm Strip Rhythm Strip: Tachycardia Rate: 145 Ectopy: None Cardiology Labs/Tests 09/01/21 09:35: WBC 13.2 H, RBC 3.82 L, Hgb 11.5 L, Hct 35.4 L, MCV 92.7, MCH 30.1, MCHC 32.5, Plt Count 328, MPV 9.4, Immature Gran % (Auto) 0.400, Neut % (Auto) 65.6, Lymph % (Auto) 13.5 L, [place] % (Auto) 9.3, Eos % (Auto) 11.0 H, Baso % (Auto) 0.2, Absolute Neuts (auto) 8.6 H, Nucleated RBC % 0 09/01/21 09:35: Sodium 141, Potassium 4.7, Chloride 109 H, Carbon Dioxide 23.0, Anion Gap 9, BUN 49 H, Creatinine 2.57 H, Est GFR (MDRD) Af Amer 31 L, Est GFR (MDRD) Non-Af 26 L, BUN/Creatinine Ratio 19.1, Glucose 138 H, Calcium 8.6 Rhythm: Patient converted to normal sinus rhythm EKG: Atrial flutter with 2 1 AV block Radiography Diagnostic Testing: Radiology Impression Chest X-Ray 09/01/21 09:14 IMPRESSION: No significant change. No new infiltrate is seen. Electronically Signed: Messi Browne, at 10:29 EST , Brain CT 09/01/21 09:39 IMPRESSION: 1. Chronic involutional changes of the brain. 2. No acute intracranial process. Electronically Signed: Messi Browne, at 10:19 EST Reading Location ID and State: [facility] / [place] Tel , Service support , Cervical Spine CT 09/01/21 09:39 IMPRESSION: 1. Multilevel degenerative changes, as described above. 2. No demonstrated acute fracture or subluxation. 3. Straightening of the cervical spine due to muscle spasm. Electronically Signed: Messi Coburndaisy, at 10:23 EST Reading Location ID and State: [facility] / [place] Tel , Service support ,
[2021-09-01] MEDS: Amiodarone 200 MG Tablet PO ×2 (16:50→21:51)
[2021-09-01 17:11] LABS: Bedside Glucose 126 mg/dL (70-110)
[2021-09-01 17:33] LABS: Troponin-I HS 19 pg/mL (3.0-78.0)
[2021-09-01 20:29] LABS: Troponin-I HS 25 pg/mL (3.0-78.0)
[2021-09-01] MEDS: Heparin Injection (Vial) 5,000 UNIT/ML VIAL 5000 UNIT SC (21:39)
[2021-09-01] MEDS: LORazepam 0.5 MG Tablet PO (21:50)
[2021-09-01] MEDS: Memantine Hydrochloride 5 MG Tablet PO (21:51)
[2021-09-01] MEDS: Atorvastatin Calcium 20 MG Tablet PO (21:51)
[2021-09-01] MEDS: Mirtazapine 15 MG Tablet 7.5 MG PO (21:51)
[2021-09-01] MEDS: QUEtiapine 100 MG Tablet PO (21:57)
[2021-09-01 22:20] LABS: Bedside Glucose 124 mg/dL (70-110)
[2021-09-02] VITALS (12 sets, daily range): BP systolic 117–147; BP diastolic 69–99; PULSE 98–112; RESP 14–16; TEMP 36.4–36.9; O2SAT 91–97
[2021-09-02 05:57] LABS: Absolute Neutrophil Count 8.3 X10^3/uL (2.0-7.7); Basophil# 0.04 X10^3/uL; Basophil% 0.3 % (0-1); Eosinophil# 1.58 X10^3/uL; Eosinophils% 11.5 % (0-5); Hematocrit 32.1 % (40-54); Hemoglobin 10.9 g/dL (13.0-16.5); Lymphocyte % 14.6 % (19-41); Mean Corpuscular Hgb 29.6 pg (27.0-32.0); Mean Corpuscular Volume 87.2 fL (80-94); Mean Platelet Vol. 9.4 fl (6.2-12.0); Monocyte# 1.67 X10^3/uL; Monocyte% 12.2 % (0-10); NRBC Flagged by Analyzer 0 % (0-5); Neutrophil # 8.34 X10^3/uL (2.7-7.7); Neutrophil % 60.9 % (47-70); POSITIVE DIFFERENTIAL YES; Platelet Count 305 K/mm3 (150-450); RBC Distribution Width CV 13.1 % (11.6-14.6); RBC Distribution Width SD 41.6 fl (35.1-43.9); Red Blood Count 3.68 M/mm3 (4.6-6.2); White Blood Count 13.7 K/mm3 (4.4-11.0)
[2021-09-02 06:01] LABS: Differential Indicated SCAN CRITERIA MET
[2021-09-02] MEDS: Heparin Injection (Vial) 5,000 UNIT/ML VIAL 5000 UNIT SC ×3 (06:16→22:30)
[2021-09-02 06:35] LABS: Bedside Glucose 130 mg/dL (70-110)
[2021-09-02 07:04] LABS: ALB/GLOB Ratio 0.7 RATIO (0.9-2.4); AST(SGOT) 14 U/L (15-37); Alanine Aminotransfer ALT/SGPT 13 U/L (16-61); Albumin, Serum 2.9 g/dL (3.2-5.0); Alkaline Phosphatase 104 U/L (45-117); Anion Gap 9 (5-15); BUN 46 mg/dL (7-18); BUN/Creat Ratio 22.2 RATIO (10-20); Calcium,Total 8.3 mg/dL (8.5-10.1); Chloride 111 mmol/L (98-107); Creatinine, Serum 2.07 mg/dL (0.70-1.30); EST Glomerular Filtration Rate 33 mL/min (>60); Est Glom Filt Rate - Afr Amer 40 mL/min (>60); Estimated Creatinine Clearance 33.77 ml/min; Globulin 4.3 g/dL (2.2-4.2); Glucose 114 mg/dL (74-106); Phosphorus 3.1 mg/dL (2.5-4.9); Potassium 4.2 mmol/L (3.5-5.1); Protein, Total 7.2 g/dL (6.4-8.2); Sodium Level 140 mmol/L (136-145); Thyroid Stim Hormone (TSH) 1.31 uIU/mL (0.358-3.74)
[2021-09-02] MEDS: Ferrous Sulfate 325 MG Tablet PO (10:58)
[2021-09-02] MEDS: Memantine Hydrochloride 5 MG Tablet PO ×2 (10:58→22:30)
[2021-09-02] MEDS: Amiodarone 200 MG Tablet PO ×2 (10:58→22:31)
[2021-09-02] MEDS: QUEtiapine 25 MG Tablet 75 MG PO (11:00)
[2021-09-02] MEDS: Metoprolol(XL)Succ 25 MG Tablet PO (11:00)
[2021-09-02] MEDS: Acetaminophen 325 MG Tablet 650 MG PO (11:09)
[2021-09-02 12:00] LABS: Bedside Glucose 128 mg/dL (70-110)
--- NOTE | 2021-09-02 13:08 | PN.HOSP_ITS ---
Subjective Subjective Patient is currently sleeping. He had no significant issues with agitation last night. He was started on amiodarone by cardiology and they attempted to talk to the son but were unable to contact him. Evidently he is available today at around noon. Objective Data Objective Data Vital Signs: Vital Signs Temp Pulse Resp BP Pulse Ox 98.5 F 100 15 147/90 H 94 09/02/21 10:51 09/02/21 11:00 09/02/21 10:51 09/02/21 11:00 09/02/21 10:51 Oxygen Flow Rate (L/min) [1 ( 2 Initial Baseline)] Oxygen Flow Rate (L/min) 2 Oxygen Delivery Method [1 ( Nasal Cannula Initial Baseline)] Oxygen Delivery Method Room Air Weight: 105.1 kg Body Mass Index (BMI) 30.0 Intake & Output: Intake and Output for Last 24 Hours 08/31/21 09/01/21 09/02/21 23:59 23:59 23:59 Intake Total 1026.92 / 1146.92 395 / 395 Balance 1026.92 / 1146.92 395 / 395 Lab / Micro Data Result Diagrams: 09/02/21 05:34 09/02/21 05:34 Labs: Laboratory Results - last 24 hr 09/01/21 16:52: POC Glucose 126 H 09/01/21 17:10: Troponin I High Sens 19 09/01/21 19:44: Troponin I High Sens 25 09/01/21 22:15: POC Glucose 124 H 09/02/21 05:34: WBC 13.7 H, RBC 3.68 L, Hgb 10.9 L, Hct 32.1 L, MCV 87.2 D, MCH 29.6, MCHC 34.0, RDW Std Deviation 41.6, RDW Coeff of Sanchez 13.1, Plt Count 305, MPV 9.4, Immature Gran % (Auto) 0.500, Neut % (Auto) 60.9, Lymph % (Auto) 14.6 L , [place] % (Auto) 12.2 H, Eos % (Auto) 11.5 H, Baso % (Auto) 0.3, Absolute Neuts ( auto) 8.3 H, Absolute Lymphs (auto) 2.00, Nucleated RBC % 0, Diff Path Review November09/02/21 05:34: Sodium 140, Potassium 4.2, Chloride 111 H, Carbon Dioxide 20.0 L , Anion Gap 9, BUN 46 H, Creatinine 2.07 H, Estim Creat Clear Calc 33.77, Est GFR (MDRD) Af Amer 40 L, Est GFR (MDRD) Non-Af 33 L, BUN/Creatinine Ratio 22.2 H , Glucose 114 H, Calcium 8.3 L, Phosphorus 3.1, Total Bilirubin 0.50, AST 14 L, ALT 13 L, Alkaline Phosphatase 104, Total Protein 7.2, Albumin 2.9 L, Globulin 4.3 H, Albumin/Globulin Ratio 0.7 L, TSH 1.31 09/02/21 06:27: POC Glucose 130 H 09/02/21 11:04: POC Glucose 128 H Rhythm Strip Rhythm Strip: Tachycardia Rate: 145 Ectopy: None Physical Exam Const Constitutional Narrative: older male lying in bed, patient is currently sleeping soundly, patient is confused and oriented only to himself at baseline Nutritional Appearance: obese HEENT normocephalic, head/scalp atraumatic and moist oral mucous membranes HEENT Narrative: Mallampati is 2, dentition is poor Head and Scalp: normocephalic Eyes Eyes Narrative: Patient is currently sleeping unable to examine however exam was benign on admission Neck no lymphadenopathy, supple, no JVD and no carotid bruits Neck Narrative: Trachea midline, no thyroid enlargement Resp normal respiratory effort, no retractions, no use of accessory muscles and clear to auscultation bilaterally Auscultation: Negative for crackles, rales, rhonchi or wheezes Cardio S1 normal heart sound, S2 normal heart sound, no murmurs, no rub, no gallops, no clicks and no JVD Cardio Narrative: Slightly tachycardia but heart rate has improved and on telemetry appears to be in flutter now with variable block GI normal to inspection, nondistended, normoactive bowel sounds, soft to palpation, non-tender and non-distended Extremity no clubbing, cyanosis or edema Peripheral Pulses: Yes pulses 2+ throughout Skin no rashes or lesions noted, no wounds, skin turgor normal, no jaundice, no petechiae and no mottling Skin Narrative: Skin is dry Neuro Neuro Narrative: Unable to fully assess as patient is currently sleeping Psych Psych Narrative: Patient is confused at baseline but currently unable to assess mood secondary to patient sleeping Assessment & Plan Assessment/Plan (1) Atrial fibrillation with rapid ventricular response: (2) Acute hypotension: (3) Leukocytosis: (4) Falls: PLAN: Wide-complex tachycardia -EKG on admission with right bundle branch block pattern and tachycardia that is suspicious for atrial flutter with 2-1 block -Continue home metoprolol -Cardizem was discontinued by cardiology with the initiation of amiodarone -Patient is not anticoagulated 2/2 to falls however he does have a history of paroxysmal atrial fibrillation -Amiodarone initiated at 200 mg p.o. twice daily -Heart rates have improved -She has spontaneously converted 3 times in the emergency department however this has not maintain resolved -Echocardiogram will be performed tomorrow morning -TSH is within normal limits Acute hypotension -Resolved Leukocytosis -Suspect related to some hemoconcentration and stress response -Remains stably elevated -No signs of acute infection -Repeat CBC in a.m. Frequent falls -Consult PT/OT -Difficult for patient to use assist device given severe dementia NIKUNJ CKD stage IIIb -Baseline serum creatinine is around 2 -Serum creatinine has improved to 2.07 -Patient was given 2 L of IV fluids in the emergency department -Repeat BMP in a.m. History of paroxysmal atrial fibrillation -Continue metoprolol -Patient is not anticoagulated secondary to frequent falls -Cardiology to discuss anticoagulation with the son Hyperlipidemia -Continue atorvastatin Chronic normocytic anemia -Patient is on iron supplementation at baseline -Hemoglobin is slightly up compared to baseline although I suspect he is hemoconcentrated DM-2 -Hold home Metformin/nateglinide -Accu-Cheks before meals and at bedtime -SSI Hypertension -Restart home valsartan/hydrochlorothiazide -As needed labetalol Dementia -Patient appears to have hyperactivity at baseline -Continue home Seroquel dosing -Continue home mirtazapine -Continue home lorazepam -Continue memantine DVT prophylax -Heparin 5000 units subcu twice daily -SCDs if able to keep them on the patient CODE STATUS -I was able to discuss the case with the son who was very clear that his father had expressed previously that he did not want to be on any artificial machines keeping him alive and therefore his CODE STATUS was changed to DNR CCA without intubation -We also did discuss the appropriateness of anticoagulation with regards to his father's atrial fibrillation and his fall status. The son did confirm that his father has been having frequent falls especially more in the last 12 months. I did express to him that I felt it was likely the risk was greater than the benefit if we did anticoagulate him at this time and we have elected to keep him off anticoagulation with the known risk of stroke given his paroxysmal atrial fibrillation Charges/Coding Visit Charges Inpatient E&M: 56753 Subs Hosp L3
--- NOTE | 2021-09-02 14:02 | PN.CARD_ITS ---
Subjective Subjective No event noted from last night Objective Data Vital Signs: Vital Signs Temp Pulse Resp BP Pulse Ox 98.5 F 100 15 147/90 H 94 09/02/21 10:51 09/02/21 11:00 09/02/21 10:51 09/02/21 11:00 09/02/21 10:51 Oxygen Flow Rate (L/min) [1 ( 2 Initial Baseline)] Oxygen Flow Rate (L/min) 2 Oxygen Delivery Method [1 ( Nasal Cannula Initial Baseline)] Oxygen Delivery Method Room Air Weight: 231 lb 11.293 oz Body Mass Index (BMI) 30.0 Intake & Output: Intake and Output for Last 24 Hours 08/31/21 09/01/21 09/02/21 23:59 23:59 23:59 Intake Total 1026.92 / 1146.92 395 / 395 Balance 1026.92 / 1146.92 395 / 395 Lab / Micro Data Result Diagrams: 09/02/21 05:34 09/02/21 05:34 Labs: Laboratory Results - last 24 hr 09/01/21 16:52: POC Glucose 126 H 09/01/21 17:10: Troponin I High Sens 19 09/01/21 19:44: Troponin I High Sens 25 09/01/21 22:15: POC Glucose 124 H 09/02/21 05:34: WBC 13.7 H, RBC 3.68 L, Hgb 10.9 L, Hct 32.1 L, MCV 87.2 D, MCH 29.6, MCHC 34.0, RDW Std Deviation 41.6, RDW Coeff of Sanchez 13.1, Plt Count 305, M PV 9.4, Immature Gran % (Auto) 0.500, Neut % (Auto) 60.9, Lymph % (Auto) 14.6 L, [place] % (Auto) 12.2 H, Eos % (Auto) 11.5 H, Baso % (Auto) 0.3, Absolute Neuts (auto) 8.3 H, Absolute Lymphs (auto) 2.00, Nucleated RBC % 0, Diff Path Review November09/02/21 05:34: Sodium 140, Potassium 4.2, Chloride 111 H, Carbon Dioxide 20.0 L , Anion Gap 9, BUN 46 H, Creatinine 2.07 H, Estim Creat Clear Calc 33.77, Est GFR (MDRD) Af Amer 40 L, Est GFR (MDRD) Non-Af 33 L, BUN/Creatinine Ratio 22.2 H , Glucose 114 H, Calcium 8.3 L, Phosphorus 3.1, Total Bilirubin 0.50, AST 14 L, ALT 13 L, Alkaline Phosphatase 104, Total Protein 7.2, Albumin 2.9 L, Globulin 4.3 H, Albumin/Globulin Ratio 0.7 L, TSH 1.31 09/02/21 06:27: POC Glucose 130 H 09/02/21 11:04: POC Glucose 128 H Rhythm Strip Rhythm Strip: Tachycardia Rate: 145 Ectopy: None Cardiology Labs/Tests 09/02/21 05:34: WBC 13.7 H, RBC 3.68 L, Hgb 10.9 L, Hct 32.1 L, MCV 87.2 D, MCH 29.6, MCHC 34.0, Plt Count 305, MPV 9.4, Immature Gran % (Auto) 0.500, Neut % (Auto) 60.9, Lymph % (Auto) 14.6 L, [place] % (Auto) 12.2 H, Eos % (Auto) 11.5 H, Baso % (Auto) 0.3, Absolute Neuts (auto) 8.3 H, Nucleated RBC % 0 09/02/21 05:34: Sodium 140, Potassium 4.2, Chloride 111 H, Carbon Dioxide 20.0 L , Anion Gap 9, BUN 46 H, Creatinine 2.07 H, Est GFR (MDRD) Af Amer 40 L, Est GFR (MDRD) Non-Af 33 L, BUN/Creatinine Ratio 22.2 H, Glucose 114 H, Calcium 8.3 L, Phosphorus 3.1, Total Bilirubin 0.50 Rhythm: Normal sinus rhythm with infrequent PVCs Physical Exam Narrative Review of the cardiac telemetry patient remains in normal sinus rhythm with infrequent PVCs Cardiac examination S1-S2 is regular, no systolic or diastolic murmur no perica rdial rub Chest exam clear to auscultation bilateral Assessment & Plan Assessment/Plan (1) Falls: (2) History of diabetes mellitus: (3) History of hypertension: (4) History of hypercholesterolemia: (5) Atrial flutter: PLAN: 76-year-old patient who had underlying right bundle branch block with atrial flutter due to 1 AV block Converted to normal sinus rhythm and has been stable hemodynamically since then Cardiovascular care and recommendations; 1. Patient has been diagnosed with dementia 2 years ago and currently he is on dementia unit in [place], according to the son I talked to his son today and also has a recurrent fall with a high risk for anticoagulation long-term 2. I reviewed his current medication will continue current treatment 3. Echocardiogram to evaluate his LV function tomorrow 4. We will follow-up clinically, cardiac care plan discussed with the nursing staff today
[2021-09-02 17:26] LABS: Bedside Glucose 115 mg/dL (70-110)
[2021-09-02] MEDS: 0.9% Saline Lock 10 ML Syringe IV (20:45)
[2021-09-02 22:21] LABS: Bedside Glucose 190 mg/dL (70-110)
[2021-09-02] MEDS: LORazepam 0.5 MG Tablet PO (22:30)
[2021-09-02] MEDS: Atorvastatin Calcium 20 MG Tablet PO (22:30)
[2021-09-02] MEDS: Mirtazapine 15 MG Tablet 7.5 MG PO (22:30)
[2021-09-03] VITALS (7 sets, daily range): BP systolic 133–166; BP diastolic 90–103; PULSE 110–116; RESP 16–18; TEMP 36–37.1; O2SAT 94–96
--- NOTE | 2021-09-03 04:12 | EKG12_ITS ---
Test Reason : ADMIN EKG Blood Pressure : / mmHG Vent. Rate : 119 BPM Atrial Rate : 119 BPM P-R Int : 176 ms QRS Dur : 084 ms QT Int : 312 ms P-R-T Axes : 037 -10 072 degrees QTc Int : 438 ms Sinus tachycardia Nonspecific T wave abnormality Confirmed by POLLY MASON, BRITTANY ([id number]), desk editor ZOYA EASTMAN ([id number]) on 09/04/2021 1:05:59 PM Referred By: MALENA Confirmed By:BRITTANY MATIAS MD
[2021-09-03] MEDS: Heparin Injection (Vial) 5,000 UNIT/ML VIAL 5000 UNIT SC ×2 (06:26→14:35)
[2021-09-03 06:41] LABS: Bedside Glucose 108 mg/dL (70-110)
--- NOTE | 2021-09-03 08:59 | CASEMGMT ---
Patient is from [facility]. ALESSIA faxed clinicals to [facility]. ALESSIA will check with [facility] and patient's son regarding discharge plan. Dalia Finn MSW JOSE
[2021-09-03] MEDS: Memantine Hydrochloride 5 MG Tablet PO (09:39)
[2021-09-03] MEDS: QUEtiapine 25 MG Tablet 75 MG PO ×2 (09:39→14:34)
[2021-09-03] MEDS: Metoprolol(XL)Succ 25 MG Tablet PO (09:39)
[2021-09-03] MEDS: Ferrous Sulfate 325 MG Tablet PO (09:39)
[2021-09-03] MEDS: Amiodarone 200 MG Tablet PO (09:40)
--- NOTE | 2021-09-03 10:04 | PN.CARD_ITS ---
Subjective Subjective This is a 76-year-old gentleman who was previously evaluated by Dr. Rivers for concerns of atrial flutter superimposed upon a history of hyperlipidemia, hypertension, diabetes mellitus, and dementia with recurrent falling episodes who appears to be resting comfortably at this time and does not voice any acute complaints. Objective Data Vital Signs: Vital Signs Temp Pulse Resp BP Pulse Ox 96.8 F L 115 H 18 133/90 H 94 09/03/21 09:28 09/03/21 09:39 09/03/21 09:28 09/03/21 09:28 09/03/21 09:28 Oxygen Flow Rate (L/min) [1 ( 2 Initial Baseline)] Oxygen Flow Rate (L/min) 2 Oxygen Delivery Method [1 ( Nasal Cannula Initial Baseline)] Oxygen Delivery Method Room Air Weight: 231 lb 11.293 oz Body Mass Index (BMI) 30.0 Intake & Output: Intake and Output for Last 24 Hours 09/01/21 09/02/21 09/03/21 23:59 23:59 23:59 Intake Total 1026.92 / 1146.92 1875 / 1875 100 / 100 Output Total 400 / 400 250 / 250 Balance 1026.92 / 1146.92 1475 / 1475 -150 / -150 Lab / Micro Data Result Diagrams: 09/02/21 05:34 09/02/21 05:34 Labs: Laboratory Results - last 24 hr 09/02/21 11:04: POC Glucose 128 H 09/02/21 17:04: POC Glucose 115 H 09/02/21 22:18: POC Glucose 190 H 09/03/21 06:35: POC Glucose 108 Rhythm Strip Rhythm Strip: Tachycardia Rate: 145 Ectopy: None Cardiology Labs/Tests Rhythm: Sinus rhythm Physical Exam HEENT normocephalic Neck full ROM, supple and no JVD Resp clear to auscultation bilaterally Cardio regular rate, S1 normal heart sound and S2 normal heart sound GI normal to inspection, nondistended, normoactive bowel sounds Extremity no pedal edema Skin no rashes or lesions noted Assessment & Plan Assessment/Plan (1) Atrial flutter: PLAN: The patient appears to be remaining in sinus rhythm at this time. Based upon his noncardiovascular comorbidities the recommendation would be to continue conservative medical management which would include rate control therapy, antiarrhythmic therapy as tolerated, and no anticoagulant therapy secondary to concerns of his recent/recurrent falling episodes. The above scenario was discussed between Dr. Rivers and the patient's son who agreed with the aforementioned evaluation and care plan. (2) History of hypercholesterolemia: PLAN: The patient will continue medical management as deemed appropriate. (3) History of hypertension: PLAN: The patient's blood pressure can be followed with medications being adjusted as needed. (4) History of type 2 diabetes mellitus: PLAN: The patient does have diabetes mellitus. He will continue evaluation care per internal medicine. (5) Dementia: PLAN: The patient's dementia does play a role in the patient's ongoing ev aluation and care. It appears at the time the recommendation has been made for continued conservati ve medical management. Addt'l Comments The patient's case has been discussed and reviewed with Dr. Rivers and Dr. Pierre. This note was generated using a voice recognition system and there may be incorrect words, spelling or punctuation that were not noted when reviewing the office note prior to saving.
--- NOTE | 2021-09-03 11:12 | DS.PCM_ITS ---
Providers Date of Admission: 09/01/21 Date of Discharge: 09/03/21 Primary Care Physician: Dr. Riddhi Cantrell MD Consultations 09/01/21 15:46 Consult: Cardiology Routine Consulting Provider: Barbara Rivers Reason for Consult: A-Fib EMERGENT Consult: No MD Notified: Yes Date Notified: 09/01/21 Time Notified: 15:46 Method of Notification: Verbal Reason For Visit: FALL/AFIB WITH RVR Diagnosis Discharge Diagnosis (1) Atrial flutter: Status: Acute Code(s): I48.92 - Unspecified atrial flutter (2) History of hypercholesterolemia: Status: Chronic Code(s): Z86.39 - Personal history of other endocrine, nutritional and metabolic disease (3) History of hypertension: Status: Chronic Code(s): Z86.79 - Personal history of other diseases of the circulatory system (4) History of type 2 diabetes mellitus: Status: Chronic Code(s): Z86.39 - Personal history of other endocrine, nutritional and metabolic disease (5) Dementia: Status: Chronic Code(s): F03.90 - Unspecified dementia without behavioral disturbance Medications at Discharge Home Medications atorvastatin 20 mg PO QHS 08/28/20 ferrous sulfate 325 mg PO DAILY 08/28/20 memantine 5 mg PO BID 08/28/20 metformin 1,000 mg PO BID 08/28/20 nateglinide 120 mg PO TIDCM 08/28/20 quetiapine 75 mg PO BID 08/28/20 lorazepam 0.5 mg PO BID 05/28/21 quetiapine 100 mg PO QHS 07/21/21 metoprolol succinate [Toprol XL] 25 mg PO DAILY #30 tab 07/22/21 mirtazapine 7.5 mg PO QHS 09/01/21 valsartan-hydrochlorothiazide 1 tab PO DAILY 09/01/21 amiodarone 200 mg PO QAM #30 tab 09/03/21 Hospital Course Operations None Procedures 2-D Echocardiogram Summary of Care Provided Minutes Spent on Discharge: 39 Hospital Course: Mr. Bond is a 76-year-old -[place] male who presented to the emergency department [facility] on 09/01/2021 from a nursing facility at which he resides after sustaining a fall. The fall resulted in no injury with no loss of consciousness. The patient was unable to give us any history as he has fairly severe dementia at baseline. He had recently been admitted to [facility] with chest pain and was found to have a wide- complex tachycardia and was hypotensive at that time. He was cardioverted in the emergency department which improved his heart rate and blood pressure. Unfortunately he reverted back into the wide-complex tachycardia during that hospitalization. It was initially thought that it might be ventricular tachycardia however it appears that he likely has a chronic or rate dependent right bundle branch block and we were suspicious that it was probably atrial flutter with 2-1 block. At that time it was contemplated whether or not to start amiodarone therapy but with it being a high risk medication it was avoided and documented that it would be reconsidered if the tachyarrhythmia reoccurred. The patient was discharged back to his facility on 07/22/2021. Upon presentation to the emergency department at admission he was again found to have a heart rate in the 150s that appeared similar to his previous tachyarrhythmia and he initially was hypotensive with a blood pressure of 78/51. The emergency department physician was getting ready to cardiovert him given the hypotension with the suspected atrial flutter however once he was given medication for sedation he spontaneously converted back to normal sinus rhythm. Unfortunately this did not last a considerable amount of time as he reverted back into the at rial flutter with 2 1 block but his blood pressures remained stable at that time. His heart rates on admission were between 120 and 140. His blood pressures again remained stable after his initial hypotensive presentation. And the rest of his vital signs were unremarkable. The patient was alert but confused on admission which is his baseline. His CBC was overall unremarkable. His BMP showed chronic stable BUN and creatinine elevations. His initial troponin was 10. And his EKG showed a wide-complex tachycardia with right bundle branch pattern that was suspicious for atrial flutter with 2:1 block. Given his fall a CT of his brain and cervical spine were performed and were negative for any acute processes. He was admitted to the PCU and maintained on rate controlling medication where cardiology was consulted. Cardiology initiated amiodarone therapy and the patient did eventually convert back into normal sinus rhythm. With the initiation of amiodarone his Cardizem was discontinued and we continued his Toprol. We did discuss his issues with the son who is the POA and discussed the initiation of the antiarrhythmic with him and we also discussed deferring anticoagulation with the risk of stroke being higher without oral anticoagulation, secondary to his frequent falls. The son indicated upon our discussion that he had been following a considerable amount that had increased in the last 12 months. It sounds like the patient has undergone a decline in the last year and his CODE STATUS was changed to DNR CCA without any intubation. The son indicated that his father had told him previously that he did not want to be on any life-sustaining devices. The patient was able to be discharged back to his assisted living facility on 09/03/2021 in stable condition with instructions to follow-up with his PCP in 2 weeks and to follow-up with cardiology in 4 to 6 weeks. Discharge diagnoses: Atrial flutter with 2-1 block-resolved Acute hypotension-resolved Leukocytosis-resolved Frequent falls CKD stage IIIb PAF Hyperlipidemia Chronic normocytic anemia DM-2 Hypertension Dementia Physical Exam Const healthy appearing Constitutional Narrative: Obese -J[place]ican male lying in bed, patient is currently sleeping soundly but nursing at the bedside and states that he was awake without any issues earlier today, oriented to self only General Appearance: comfortable and well developed Nutritional Appearance: obese HEENT normocephalic, head/scalp atraumatic and moist oral mucous membranes Eyes Eyes Narrative: Patient is currently napping Neck no lymphadenopathy, supple, no JVD and no carotid bruits Resp normal respiratory effort, no retractions, no use of accessory muscles and clear to auscultation bilaterally Auscultation: Negative for crackles, rales, rhonchi or wheezes Cardio regular rate, regular rhythm, S1 normal heart sound, S2 normal heart sound, no murmurs, no rub, no gallops, no clicks and no JVD Cardio Narrative: Patient is now in normal sinus rhythm GI normal to inspection, nondistended, normoactive bowel sounds, soft to palpation, non-tender and non-distended Extremity no clubbing, cyanosis or edema Skin no rashes or lesions noted, no wounds, skin turgor normal, no jaundice, no petechiae and no mottling Neuro Neuro Narrative: Patient is currently sleeping soundly but moves all limbs spontaneously while sleeping Psych Psych Narrative: Unable to assess Weight / BMI Weight Weight: 105.1 kg Body Mass Index (BMI) 30.0 ABG / Lab / Microbiology Data Result Diagrams: 09/02/21 05:34 09/02/21 05:34 Laboratory: Laboratory Results - last 24 hr 09/02/21 11:04: POC Glucose 128 H 09/02/21 17:04: POC Glucose 115 H 09/02/21 22:18: POC Glucose 190 H 09/03/21 06:35: POC Glucose 108 D/C Instructions Discharge Diet: Low fat / Low cholesterol Discharge Activity: Return to Normal Activity Meaningful Use Info Meaningful Use Diagnoses (Choose all that apply): None applicable Discharge Plan Admission Admit Date/Time: 09/01/21 15:05 Primary Reason for Your Visit: Afib/Flutter with RVR Attending Provider: Yuko Pierre Primary Care Provider: Riddhi Cantrell Consulting Providers: Barbara Rivers Discharge Orders/Prescriptions Prescriptions: New amiodarone 200 mg Tablet 200 mg PO QAM Qty: 30 RF: 1 Continued quetiapine 25 MG tablet 75 mg PO BID RF: 0 nateglinide 120 MG tablet 120 mg PO TIDCM RF: 0 atorvastatin 20 MG tablet 20 mg PO QHS RF: 0 ferrous sulfate 325 MG tablet 325 mg PO DAILY RF: 0 metformin 1,000 MG tablet 1,000 mg PO BID RF: 0 memantine 5 MG tablet 5 mg PO BID RF: 0 lorazepam 0.5 mg Tablet 0.5 mg PO BID RF: 0 quetiapine 100 mg Tablet 100 mg PO QHS RF: 0 metoprolol succinate [Toprol XL] 25 mg tablet extended release 24 hr 25 mg PO DAILY Qty: 30 RF: 0 valsartan-hydrochlorothiazide 160-12.5 mg Tablet 1 tab PO DAILY RF: 0 mirtazapine 7.5 mg Tablet 7.5 mg PO QHS RF: 0 Discontinued diltiazem HCl 180 MG capsule,extended release 24hr 180 mg PO DAILY RF: 0 Referrals / Follow Up: Riddhi Cantrell MD [Primary Care Provider] - Within 2 Weeks Jeferson Palmer MD [STAFF PHYSICIAN] - Within 1 Month (hospital followup for A- flutter) Disposition Disposition (needs filled in before D/C Order can be placed): Assisted Living Charges/Coding Visit Charges Inpatient E&M: 77681 Disch Hosp
--- NOTE | 2021-09-03 11:37 | CASEMGMT ---
Addendum entered by Bridget Joel 09/03/21 14:45: Social Work SW called [facility], spoke w/Colette. Pt can return, asked if pt need PT/OT and assisted when she returns. ALESSIA let the SW on PCU know this information. [employer] Addendum entered by Bridget Joel 09/03/21 11:55: ALESSIA received a call back from Barbara at [facility], she did not receive the fax and ask it be sent to a different fax number, . ALESSIA reviewed some of the information on the phone, Barbara does think they will be able to take pt back, but will review the information and let SW know. ALESSIA refaxed the information to the above fax number. [employer] Original Note: Social Work SW called [facility] to see if pt can return, message left, awaiting return call. [employer]chant
[2021-09-03 12:36] LABS: Bedside Glucose 143 mg/dL (70-110)
[2021-09-03 14:04] LABS: Pathologist Review Reviewed
[2021-09-03] MEDS: LORazepam 0.5 MG Tablet PO (14:34)
--- NOTE | 2021-09-03 15:01 | CASEMGMT ---
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 Dalia GARCIA Original Note: Patient is ready for discharge back to [facility]. ALESSIA called patient's son and let him know patient will be going back to [facility] today. ALESSIA arranged for patient to get picked up at 4p via cot by [facility]. Plan: d/c back to [facility]. Dalia GARCIA
[2021-09-03 17:06] LABS: Bedside Glucose 120 mg/dL (70-110)
== END 2021-09-03 17:25 | disposition home or self-care (01) | DRG 310 ==
LOC: ED 15:18 → PCU 16:44
PROVIDERS: Admitting Provider Internal Medicine; Emergency Provider Emergency Medicine; PCP Family Medicine; Visit Provider Internal Medicine
DX: I48.92 Unspecified atrial flutter (principal); I47.2 Ventricular tachycardia; E11.22 Type 2 diabetes mellitus with diabetic chronic kidney disease; D64.9 Anemia, unspecified; E11.9 Type 2 diabetes mellitus without complications; E66.9 Obesity, unspecified; F03.90 Unspecified dementia, unspecified severity, without behavioral disturbance, psychotic disturbance, mood disturbance, and anxiety; I95.9 Hypotension, unspecified; I48.0 Paroxysmal atrial fibrillation; N18.32 Chronic kidney disease, stage 3b; E78.5 Hyperlipidemia, unspecified; I12.9 Hypertensive chronic kidney disease with stage 1 through stage 4 chronic kidney disease, or unspecified chronic kidney disease; Z79.84 Long term (current) use of oral hypoglycemic drugs; Z66 Do not resuscitate; Z79.899 Other long term (current) drug therapy; R29.6 Repeated falls; Z68.30 Body mass index [BMI] 30.0-30.9, adult
CPT/HCPCS: 36415; 70450; 71045; 72125; 80048; 80053; 82962; 84100; 84443; 84484; 85025; 93005; 93306; 97162; 97166; 97802; 99251; 99285; J7030; Q9957; A4216; C8929; G0463

== ENCOUNTER 2021-09-03 20:20 | Emergency (ER) | payer SELFPAY ==
[2021-09-03 20:21] VITALS: BP 147/107; PULSE 134; RESP 13; TEMP 36.9; O2SAT 93; BMI 29.4
[2021-09-03 20:25] VITALS: O2SAT 95
--- NOTE | 2021-09-03 20:39 | CT_ITS ---
INDICATION: Acute change in mental status due to trauma EXAMINATION: CT BRAIN - CT Head or Brain W/O Contrast Injection TECHNIQUE: Multiple axial images were obtained of the head without intravenous contrast. A radiation dose optimization technique was used for this scan. IV Contrast dosage and agent: None. COMPARISON: 08/30/[address] FINDINGS: BRAIN PARENCHYMA: No intra- or extra-axial hemorrhage. No intracranial mass or mass effect. Douglas/white matter differentiation is maintained and there is no blurring of the basal ganglia. There is no hyperdense vessel. Dense cavernous carotid artery intimal calcifications and some intracranial vertebral artery calcifications are noted. Moderate bilateral periventricular white matter decreased density suggesting chronic small vessel ischemic changes. Posterior fossa structures are unremarkable. CSF SPACES: Diffusely increased likely representing age-related parenchymal volume loss. No hydrocephalus. Basal cisterns are patent. CALVARIUM, SKULL BASE, PARANASAL SINUSES AND MASTOID AIR CELLS: Right frontal sinus calcification with central fluid density unchanged, benign finding. There is minimal mucosal thickening bilateral maxillary sinuses, right greater left. No discrete lytic or blastic abnormalities. ORBITS: Both globes, extraocular muscles, optic nerves and retrobulbar fat appear unremarkable. ASPECTS Score for Acute Strokes: 10 CT/Brain/Head without Contrast IMPRESSION: No acute intracranial pathology. Electronically Signed: Juan Pablo Moreno DO at 22:57 EST ,
--- NOTE | 2021-09-03 20:40 | EKG12_ITS ---
Test Reason : POSS A-FIB Blood Pressure : / mmHG Vent. Rate : 110 BPM Atrial Rate : 110 BPM P-R Int : 180 ms QRS Dur : 092 ms QT Int : 334 ms P-R-T Axes : 039 -14 064 degrees QTc Int : 452 ms Sinus tachycardia with occasional Premature ventricular complexes Nonspecific T wave abnormality Confirmed by POLLY MASON, BRITTANY ([id number]), offline editor ZOYA EASTMAN ([id number]) on 09/04/2021 1:19:56 PM Referred By: DR GUY Confirmed By:BRITTANY MATIAS MD
--- NOTE | 2021-09-03 20:56 | EKG12_ITS ---
Test Reason : DYSRHYTHMIA Blood Pressure : / mmHG Vent. Rate : 122 BPM Atrial Rate : 122 BPM P-R Int : 170 ms QRS Dur : 084 ms QT Int : 294 ms P-R-T Axes : 024 -23 066 degrees QTc Int : 418 ms Sinus tachycardia Otherwise normal ECG When compared with ECG of 03-SEP-2021 04:20, MANUAL COMPARISON REQUIRED, DATA IS UNCONFIRMED Confirmed by EFRA MASON, CHETNA ([id number]), editorial assistant ZOYA EASTMAN ([id number]) on 09/06/2021 1:44:55 PM Referred By: VIRGIL Confirmed By:KIMBERLY KRAUS MD
[2021-09-03 21:09] LABS: Absolute Lymphocyte Count 1.79 X10^3/uL (0.83-4.51); Basophil# 0.05 X10^3/uL; Basophil% 0.4 % (0-1); Eosinophil# 1.37 X10^3/uL; Eosinophils% 10.9 % (0-5); Hematocrit 40.1 % (40-54); Hemoglobin 13.3 g/dL (13.0-16.5); Lymphocyte # 1.79 X10^3/ul (0.83-4.51); Lymphocyte % 14.3 % (19-41); Mean Corp Hgb Conc 33.2 g/dL (32-36); Mean Corpuscular Hgb 29.9 pg (27.0-32.0); Mean Corpuscular Volume 90.1 fL (80-94); Mean Platelet Vol. 9.2 fl (6.2-12.0); Monocyte# 1.25 X10^3/uL; NRBC Flagged by Analyzer 0 % (0-5); Neutrophil # 7.97 X10^3/uL (2.7-7.7); Neutrophil % 63.4 % (47-70); Platelet Count 358 K/mm3 (150-450); RBC Distribution Width CV 12.7 % (11.6-14.6); RBC Distribution Width SD 42.1 fl (35.1-43.9); Red Blood Count 4.45 M/mm3 (4.6-6.2); White Blood Count 12.6 K/mm3 (4.4-11.0)
[2021-09-03 21:25] LABS: Anion Gap 6 (5-15); BUN 29 mg/dL (7-18); BUN/Creat Ratio 17.9 RATIO (10-20); Calcium,Total 8.9 mg/dL (8.5-10.1); Chloride 108 mmol/L (98-107); Creatinine, Serum 1.62 mg/dL (0.70-1.30); EST Glomerular Filtration Rate 44 mL/min (>60); Est Glom Filt Rate - Afr Amer 53 mL/min (>60); Glucose 141 mg/dL (74-106); Potassium 4.3 mmol/L (3.5-5.1); Sodium Level 141 mmol/L (136-145)
[2021-09-03 21:58] LABS: Lactic Acid 1.8 mmol/L (0.4-1.9)
--- NOTE | 2021-09-03 22:16 | EX.ED.GENINJ ---
HPI History of Present Illness Chief Complaint: Fall Detail of Chief Complaint: History limited due to dementia Informant: patient and EMS Onset/Context/Timing Onset: Hours Mechanism/Context: Fall Location: Superficial laceration forehead, left side Worsened by: Unknown Relieved by: Unknown Associated Symptoms Associated Symptoms: Negative for Loss of function Length of loss of consciousness: Unknown since patient has dementia Narrative Narrative: Patient is an elderly male with history of atrial flutter, type 2 diabetes, hypertension, hypercholesterolemia, and GERD who presents after fall at nursing facility. He was sent in for evaluation because of hematoma left side of the forehead with abrasion/superficial laceration. He is not a good informant. He was seen 2 days ago for acute hypotension. Records were reviewed. He apparently is not on an antiplatelet or anticoagulant. Tetanus Immunization: 5-10 years Prior similar symptoms: No Recent Illness/Hospitalization: Yes [facility] Medical History Anemia Cognitive impairment Dementia HTN (hypertension) Hyperlipidemia Obesity Type 2 diabetes mellitus Home Medications atorvastatin 20 mg PO QHS 08/28/20 [History Last Taken 08/29/20] ferrous sulfate 325 mg PO DAILY 08/28/20 [History Last Taken 08/30/20] memantine 5 mg PO BID 08/28/20 [History Last Taken 08/30/20] metformin 1,000 mg PO BID 08/28/20 [History Last Taken 08/30/20] nateglinide 120 mg PO TIDCM 08/28/20 [History Last Taken 08/30/20] quetiapine 75 mg PO BID 08/28/20 [History Last Taken 08/29/20] lorazepam 0.5 mg PO BID 05/28/21 [History Last Taken Unknown] quetiapine 100 mg PO QHS 07/21/21 [History Last Taken Unknown] metoprolol succinate [Toprol XL] 25 mg PO DAILY #30 tab 07/22/21 [Rx Last Taken Unknown] mirtazapine 7.5 mg PO QHS 09/01/21 [History Last Taken Unknown] valsartan-hydrochlorothiazide 1 tab PO DAILY 09/01/21 [History Last Taken Unknown] amiodarone 200 mg PO DAILY #30 tab 09/03/21 [Rx Last Taken Unknown] Allergy/AdvReac Type Severity Reaction Status Date / Time shellfish derived Allergy Unknown Verified 08/30/20 15:08 Social History housing: longterm Smoking Status: Unknown if ever smoked ROS ROS ED Review of Systems ROS Unobtainable: due to mental condition, due to mental status and other Details: Patient is insistent it is in December and tells me I am incorrect when I told him it was August. EXAM Physical Exam Const Vital Signs: 09/03/21 20:21 09/03/21 20:25 Temperature 98.4 F Temperature Source Temporal Pulse Rate 134 H Respiratory Rate 13 Respiratory Effort Normal Respiratory Depth Normal Respiratory Pattern Normal Blood Pressure 147/107 H Blood Pressure Mean 120 Pulse Ox 93 95 Oxygen Delivery Method Room Air Positive well nourished and well developed General Appearance ED: well developed and NAD HEENT Reports TM's clear HEENT Narrative: There is no hemotympanum. There is no clinical findings of basilar skull fracture. There is no septal deviation or hematoma. He does have a left forehead subcutaneous hematoma with superficial laceration. There is no active bleeding. Attempt to open the wound was unsuccessful. Forehead laceration is 2.6 cm trauma; Negative for atraumatic or tenderness Nose: Negative for septum abnormal Tympanic Membrane ED: Yes TM's clear Eyes PERRL and EOMs intact bilaterally General Eye ED: Yes other Other Details: There is no subconjunctival hemorrhage noted. Sclera is anicteric. Neck full ROM General: Negative for tenderness Chest Wall inspection of chest normal and palpation of chest normal Resp normal respiratory effort and clear to auscultation bilaterally Cardio regular rhythm, S1 normal heart sound and S2 normal heart sound; Negative for no murmurs Rate: tachycardic GI normal to inspection, nondistended, normoactive bowel sounds and non-tender Palpation: soft Back/Spine normal to inspection and no thoracic nor lumbar tenderness General Back: Negative for CVA tenderness Extremity normal to inspection and full ROM General Extremety ED: Yes edema; Negative for deformity or tenderness General Extremity: edema; Negative for deformity Neuro No oriented x3, CN's II-XII intact bilaterally and moves all extremities Neuro Narrative: Negative clonus or Babinski sign. [place] Coma Scale: document GCS findings To Voice Obeys Commands Confused 13 Sensorium / Orientation: oriented to person; Negative for alert or oriented to time Deep Tendon Reflexes: Rt Triceps (C7): 1+, Lt Triceps (C7): 1+, Rt Biceps (C5, C6): 1+, Lt Biceps (C5, C6): 1+, Rt Brachioradialis (C6): 1+, Lt Brachioradialis (C6): 1+, Rt Patellar (L4): 1+, Lt Patellar (L4): 1+, Rt Ankle (S1): 1+ and Lt Ankle (S1): 1+ Deep Tendon Reflexes Back: Rt Patellar (L4): 1+, Lt Patellar (L4): 1+, Rt Ankle (S1): 1+ and Lt Ankle (S1): 1+ Plantar Reflex: Downgoing: bilateral Psych Negative for mental status grossly normal or thought process normal Skin no rashes or lesions noted and no jaundice Wounds: wounds noted other Previously described in the H EENT portion of the physical exam. MDM MDM MDM Narrative Medical decision making narrative: With altered mental status and GCS of 13 and evidence of head trauma per the [place] CT head rule and [place] rule imaging is required to rule out intracranial bleed i.e. subdural, epidural, traumatic subarachnoid hemorrhage or intraparenchymal contusion. Blood work was obtained since he has history of iron deficiency anemia to rule out anemia and possible cause of his hypotension and recent falls. Lab Data Attestation: I reviewed the patient's lab results. Lab results narrative: White count is slightly elevated which is unremarkable in light of the fact that he has had recent trauma. H&H is unremarkable. Indices are normal. Differential is normal. Creatinine is slightly elevated 1.62 with a GFR of 53. Lactate is normal. Glucose is 141 and would not explain his altered mental status. This was obtained to assess for hypoglycemia since he has type 2 diabetes. Labs: Laboratory Results - last 24 hr 09/03/21 09/03/21 09/03/21 20:54 20:54 20:54 WBC 12.6 H RBC 4.45 L Hgb 13.3 Hct 40.1 MCV 90.1 MCH 29.9 MCHC 33.2 RDW Std Deviation 42.1 RDW Coeff of Sanchez 12.7 Plt Count 358 MPV 9.2 Immature Gran % (Auto) 1.000 H Neut % (Auto) 63.4 Lymph % (Auto) 14.3 L [place] % (Auto) 10.0 Eos % (Auto) 10.9 H Baso % (Auto) 0.4 Absolute Neuts (auto) 8.0 H Absolute Lymphs (auto) 1.79 Nucleated RBC % 0 Sodium 141 Potassium 4.3 Chloride 108 H Carbon Dioxide 27.0 Anion Gap 6 BUN 29 H Creatinine 1.62 H Estim Creat Clear Calc 44.40 Est GFR (MDRD) Af Amer 53 L Est GFR (MDRD) Non-Af 44 L BUN/Creatinine Ratio 17.9 Glucose 141 H Lactic Acid 1.8 Calcium 8.9 Radiography Diagnostic Testing: Clinical Impression(s) from Imaging Studies Brain CT 09/03/21 20:39 IMPRESSION: No acute intracranial pathology. Electronically Signed: Juan Pablo Moreno DO at 22:57 EST , CT of the head EKG Initial EKG: Attestation: I personally reviewed and interpreted this EKG as follows: Interpretation: Sinus Tachycardia (Ventricular rate is 122. The EKG is otherwise normal. VT interval is 170 ms. QS duration 84 ms. QT duration 294 ms. Wyatt is normal.) Discharge Plan Triage Chief Complaint: Fall ED Provider: Jude Juan Dx/Rx/DC Orders Clinical Impression: Injury due to fall, Dementia, CHI (closed head injury), Forehead laceration, Sinus tachycardia Instructions: ED Head Injury (Adult), ED Laceration Small or ... Prescriptions: No Action quetiapine 25 MG tablet 75 mg PO BID RF: 0 nateglinide 120 MG tablet 120 mg PO TIDCM RF: 0 atorvastatin 20 MG tablet 20 mg PO QHS RF: 0 ferrous sulfate 325 MG tablet 325 mg PO DAILY RF: 0 metformin 1,000 MG tablet 1,000 mg PO BID RF: 0 memantine 5 MG tablet 5 mg PO BID RF: 0 lorazepam 0.5 mg Tablet 0.5 mg PO BID RF: 0 quetiapine 100 mg Tablet 100 mg PO QHS RF: 0 metoprolol succinate [Toprol XL] 25 mg tablet extended release 24 hr 25 mg PO DAILY Qty: 30 RF: 0 valsartan-hydrochlorothiazide 160-12.5 mg Tablet 1 tab PO DAILY RF: 0 mirtazapine 7.5 mg Tablet 7.5 mg PO QHS RF: 0 amiodarone 200 mg tablet 200 mg PO DAILY Qty: 30 RF: 0 Primary Care Provider: Riddhi Cantrell Referrals: Riddhi Cantrell MD [Primary Care Provider] - As Needed Disposition Disposition: Home, Self Care
[2021-09-03 23:11] VITALS: BP 140/97; PULSE 117; RESP 18; O2SAT 95
[2021-09-04 03:51] VITALS: O2SAT 97
== END 2021-09-04 03:51 | disposition home or self-care (01) ==
PROVIDERS: Emergency Provider Emergency Medicine; PCP Family Medicine; Visit Provider Emergency Medicine
DX: S01.81XA Laceration without foreign body of other part of head, initial encounter (principal); F03.90 Unspecified dementia, unspecified severity, without behavioral disturbance, psychotic disturbance, mood disturbance, and anxiety; I48.92 Unspecified atrial flutter; E11.9 Type 2 diabetes mellitus without complications; R40.2412 Glasgow coma scale score 13-15, at arrival to emergency department; E78.5 Hyperlipidemia, unspecified; I10 Essential (primary) hypertension; W19.XXXA Unspecified fall, initial encounter; Y92.129 Unspecified place in nursing home as the place of occurrence of the external cause; R00.0 Tachycardia, unspecified; K21.9 Gastro-esophageal reflux disease without esophagitis; E66.9 Obesity, unspecified; Z79.84 Long term (current) use of oral hypoglycemic drugs; Z79.899 Other long term (current) drug therapy
CPT/HCPCS: 70450; 80048; 83605; 85025; 93005; 99285

== ENCOUNTER 2021-09-04 11:22 | Emergency (ER) | payer SELFPAY ==
[2021-09-04 11:23] VITALS: BP 131/87; PULSE 112; RESP 16; TEMP 36.2; O2SAT 97; BMI 27.4
--- NOTE | 2021-09-04 12:23 | CT_ITS ---
STUDY: CT CERVICAL SPINE WITHOUT CONTRAST REASON FOR EXAM: Male, 76 years old. Neck pain following a fall. RADIATION DOSAGE (If Supplied By Facility): CTDIvol = ( 22.65 ) mGy, DLP = ( 468.12 ) mGycm TECHNIQUE: High resolution transaxial imaging was performed without contrast material. Sagittal and coronal images were reconstructed. Individualized dose optimization techniques were used for this CT. COMPARISON: Comparison is made with prior study dated 09/01/2021. FINDINGS: Normal craniovertebral junction. There are degenerative changes of the anterior atlantoaxial articulation. Normal odontoid process. There is straightening of the normal cervical lordosis. Normal vertebral bodies and posterior osseous elements. C2-3: Facet joint osteoarthritis. Uncovertebral arthrosis. Mild degree of right neural foraminal stenosis. C3-4: Facet joint osteoarthritis and hypertrophy. Uncovertebral arthrosis. Bilateral neural foraminal stenosis is worse on the right side. C4-5: Mild degree of disc space narrowing. Uncovertebral arthrosis and facet joint osteoarthritis. Bilateral neural foraminal stenosis and central canal stenosis worse on the right side. C5-6: Marked degree of disc space narrowing with spondylosis. Uncovertebral arthrosis. Mild degree of bilateral neural foraminal stenosis. C6-7: Disc space narrowing. Spondylosis. C7-T1: Normal endplates. Normal disc height and morphology. Normal central canal and intervertebral neuroforamina. Atherosclerotic plaque formation of the carotid arteries. CT/Spine Cervical without Contras IMPRESSION: Multilevel degenerative changes, as described above. Stable examination. Electronically Signed: Justin Mills MD at 13:08 EST ,
--- NOTE | 2021-09-04 12:23 | CT_ITS ---
STUDY: CT BRAIN WITHOUT CONTRAST REASON FOR EXAM: Male, 76 years old. Head injury due to a fall. Laceration of the forehead. RADIATION DOSAGE (If Supplied By Facility): CTDIvol = ( 44.99 ) mGy, DLP = ( 796.11 ) mGycm TECHNIQUE: Transaxial CT imaging of the brain was performed without administration of intravenous contrast material. Individualized dose optimization techniques were used for this CT. COMPARISON: Comparison is made with prior examination dated 09/03/2021. FINDINGS: Small scalp hematoma overlying the left frontal bone. Normal calvarium. There is moderate cerebral atrophy with widening of the extra-axial spaces and ventricular dilatation. Stable prominence of the CSF spaces. There are areas of decreased attenuation within the white matter tracts of the supratentorial brain, consistent with microvascular disease changes. Normal basal ganglia and thalami. Normal brainstem. There is mild cerebellar atrophy. There is no intracranial hemorrhage. There are no findings of an acute ischemic infarction. Atherosclerotic calcific plaques of the cavernous portions of the internal carotid arteries as well as the vertebral arteries. Normal visualized paranasal sinuses. CT/Brain/Head without Contrast IMPRESSION: Chronic involutional changes of the brain. Persistent small scalp hematoma overlying the left frontal bone. Electronically Signed: Justin Mills MD at 13:04 EST ,
--- NOTE | 2021-09-04 12:25 | EDS_ITS ---
HPI History of Present Illness Chief Complaint: Head Injury Narrative Narrative: Patient presents from [facility] for unwitnessed fall. He does have history of dementia and frequent falls. History and physical is limited secondary to dementia. It was reported that he had an unwitnessed fall. Currently, he is full code. He has been to the emergency department reportedly for frequent falls and head injuries. [facility] medication [facility], he is not on any blood thinners. They sent him in because of an abrasion to his left forehead. Patient denies any neck pain. [facility] Medical History Anemia Cognitive impairment Dementia HTN (hypertension) Hyperlipidemia Obesity Type 2 diabetes mellitus Home Medications atorvastatin 20 mg PO QHS 08/28/20 [History Last Taken 08/29/20] ferrous sulfate 325 mg PO DAILY 08/28/20 [History Last Taken 08/30/20] memantine 5 mg PO BID 08/28/20 [History Last Taken 08/30/20] metformin 1,000 mg PO BID 08/28/20 [History Last Taken 08/30/20] nateglinide 120 mg PO TIDCM 08/28/20 [History Last Taken 08/30/20] quetiapine 75 mg PO BID 08/28/20 [History Last Taken 08/29/20] lorazepam 0.5 mg PO BID 05/28/21 [History Last Taken Unknown] quetiapine 100 mg PO QHS 07/21/21 [History Last Taken Unknown] metoprolol succinate [Toprol XL] 25 mg PO DAILY #30 tab 07/22/21 [Rx Last Taken Unknown] mirtazapine 7.5 mg PO QHS 09/01/21 [History Last Taken Unknown] valsartan-hydrochlorothiazide 1 tab PO DAILY 09/01/21 [History Last Taken Unknown] diltiazem HCl [Cartia XT] 180 mg PO DAILY 09/04/21 [History Last Taken Unknown] Allergy/AdvReac Type Severity Reaction Status Date / Time shellfish derived Allergy Unknown Verified 09/04/21 11:22 Social History housing: [facility] Smoking Status: Unknown if ever smoked ROS ROS ED ROS Narrative Constitutional: No fever, no chills. HEENT: No sore throat. No neck pain. No loss of vision. No rhinorrhea. Head injury with abrasion to left forehead. Cardiovascular: No chest pain. No palpitations. No pedal edema. Respiratory: No cough, no shortness of breath. Abdominal: No abdominal pain. No nausea. No vomiting. Genitourinary: No dysuria. No hematuria. Musculoskeletal: No myalgias. No arthralgias. Neurologic: No headaches. No dizziness. No lightheadedness. Skin: No rash. No change in color. Psychiatric: No depression. No anxiety. Limited secondary to dementia. EXAM Physical Exam Narrative Exam Narrative: Afebrile. Vital signs noted. GCS 15. ABCs are intact. HEENT: Normocephalic. Atraumatic. PERRL, EOMI. Neck soft and supple. No point tenderness or step off. Dried blood with small abrasion left forehead. No active bleeding. Previous abrasion/laceration noted. Cardiovascular: Regular rate and rhythm. No murmurs, rubs, or gallops appreciated. Respiratory: No tachypnea. Lungs clear to auscultation bilaterally. Gastrointestinal: Abdomen soft, nontender, with normoactive bowel sounds. No rebound or guarding. Neurological: Awake. Alert. Oriented to person. Nonfocal, nonlateralizing. Able to raise arms above head without difficulty. Moves all extremities. Skin: No rash. Normal color. No pallor. Musculoskeletal: No pedal edema. Full range of motion extremities. Const Vital Signs: 09/04/21 11:23 09/04/21 11:25 Temperature 97.2 F L Temperature Source Temporal Pulse Rate 112 H Respiratory Rate 16 Respiratory Effort Normal Non-Labored Respiratory Depth Normal Respiratory Pattern Normal Blood Pressure 131/87 H Blood Pressure Mean 101 Pulse Ox 97 Oxygen Delivery Method Room Air MDM MDM MDM Narrative Medical decision making narrative: CT of the brain and of the C-spine will be obtained. His wound was cleansed. There is no repairable laceration. His CT showed chronic changes, no active hemorrhage or fracture. At this point in time, I feel he can be [facility]. Return instructions were reviewed. Disposition is discharged home in stable condition. Radiography Diagnostic Testing: Clinical Impression(s) from Imaging Studies Brain CT 09/04/21 12:23 IMPRESSION: Chronic involutional changes of the brain. Persistent small scalp hematoma overlying the left frontal bone. Electronically Signed: Justin Mills MD at 13:04 EST , Cervical Spine CT 09/04/21 12:23 IMPRESSION: Multilevel degenerative changes, as described above. Stable examination. Electronically Signed: Justin Mills MD at 13:08 EST , Discharge Plan Triage Chief Complaint: Head Injury ED Provider: Jaime Bolanos Dx/Rx/DC Orders Clinical Impression: Fall, Closed head injury, Abrasion of forehead Instructions: Fall Prevention Assessing Risk, ED Head Injury (Adult) Prescriptions: No Action quetiapine 25 MG tablet 75 mg PO BID RF: 0 nateglinide 120 MG tablet 120 mg PO TIDCM RF: 0 atorvastatin 20 MG tablet 20 mg PO QHS RF: 0 ferrous sulfate 325 MG tablet 325 mg PO DAILY RF: 0 metformin 1,000 MG tablet 1,000 mg PO BID RF: 0 memantine 5 MG tablet 5 mg PO BID RF: 0 lorazepam 0.5 mg Tablet 0.5 mg PO BID RF: 0 quetiapine 100 mg Tablet 100 mg PO QHS RF: 0 metoprolol succinate [Toprol XL] 25 mg tablet extended release 24 hr 25 mg PO DAILY Qty: 30 RF: 0 valsartan-hydrochlorothiazide 160-12.5 mg Tablet 1 tab PO DAILY RF: 0 mirtazapine 7.5 mg Tablet 7.5 mg PO QHS RF: 0 diltiazem HCl [Cartia XT] 180 mg Capsule,Extended Release 24hr 180 mg PO DAILY RF: 0 Primary Care Provider: Riddhi Cantrell Referrals: Riddhi Cantrell MD [Primary Care Provider] - Disposition Disposition: [facility] Facility Discharge Location: [facility]
[2021-09-04 14:20] VITALS: BP 118/88; PULSE 99; RESP 16; O2SAT 100
--- NOTE | 2021-09-04 14:24 | ED.RN ---
THIS RN SPOKE WITH RN AT [facility],, AND GAVE RETURN REPORT. NO FURTHER QUESTIONS
== END 2021-09-04 15:14 | disposition skilled nursing facility (03) ==
PROVIDERS: Emergency Provider Emergency Medicine; PCP Family Medicine; Visit Provider Emergency Medicine
DX: S00.81XA Abrasion of other part of head, initial encounter (principal); F03.90 Unspecified dementia, unspecified severity, without behavioral disturbance, psychotic disturbance, mood disturbance, and anxiety; E11.9 Type 2 diabetes mellitus without complications; W19.XXXA Unspecified fall, initial encounter; Y92.129 Unspecified place in nursing home as the place of occurrence of the external cause; I10 Essential (primary) hypertension; E78.5 Hyperlipidemia, unspecified; E66.9 Obesity, unspecified; Z79.84 Long term (current) use of oral hypoglycemic drugs; Z79.899 Other long term (current) drug therapy; Z91.81 History of falling
CPT/HCPCS: 70450; 72125; 99284